=== PATIENT | female | born 1940 | race Two or more races ===

== ENCOUNTER 2018-06-07 13:19 | Inpatient (IN) | payer MEDICARE, OTHER ==
[~2018-06-07] VITALS: Ht 152.4 cm; Wt 44.5 kg
--- NOTE | 2018-06-07 13:29 | NUR ---
MINDY FROM [facility] DT CONGESTION X 3 DAYS. PATIENT IS AWAKE AND ALERT. APPEARS IN NO DISTRESS. RESPIRATION EVEN AND UNLABORED. SKIN IS WARM TO TOUCH AND NON DIAPHORETIC. AFEBRILE. VSS
[2018-06-07] MEDS ORDERED: MORPHINE SULFATE INJ 2 MG/ML DISP.SYRIN IV ONE (15:00)
[2018-06-07] MEDS ORDERED: IV NS 0.9% 1,000 ML BAG IV ONE (15:00)
[2018-06-07] MEDS ORDERED: MORPHINE SULFATE INJ 2 MG/ML DISP.SYRIN ONE (15:05)
[2018-06-07 15:12] LABS: BASOPHILS % (AUTO) 0.2 % (0.0-2.0); HEMATOCRIT 33 % (33-45); LYMPHOCYTES # (AUTO) 0.5 /CMM (0.8-4.8); LYMPHOCYTES % (AUTO) 6.8 % (20.0-44.0); MEAN CORPUSCULAR HEMOGLOBIN 30 PG (26.0-33.0); MEAN CORPUSCULAR HGB CONC 34 g/dl (31.0-36.0); MEAN CORPUSCULAR VOLUME 90 fL (82-100); MONOCYTES # (AUTO) 0.7 /CMM (0.1-1.30); NEUTROPHILS # (AUTO) 6.6 /CMM (1.8-8.9); PLATELET COUNT (AUTO) 385 /CMM (150-450); RDW COEFFICIENT OF VARIATION 14.4 (11.5-15.0); RED BLOOD CELL COUNT(AUTO) 3.63 MIL/uL (4.0-5.2); WHITE BLOOD COUNT (AUTO) 7.8 K/uL (4.3-11.0)
[2018-06-07 15:25] LABS: CARBON DIOXIDE 26 mmol/L (21-32); CHLORIDE 99 mmol/L (98-107); CREATININE 0.5 mg/dL (0.6-1.3); GLUCOSE 143 mg/dL (74-106); POTASSIUM 3.6 mmol/L (3.5-5.1); SODIUM SERUM 135 mmol/L (136-145); UREA NITROGEN, BLOOD 12 mg/dL (7-18)
[2018-06-07 15:26] LABS: INR 1.12 (0.85-1.15)
[2018-06-07 15:30] LABS: ALANINE AMINOTRANSFERASE 6 U/L (12-78); ALBUMIN 2.5 g/dL (3.4-5.0); ALKALINE PHOSPHATASE 94 U/L (46-116); ASPARTATE AMINOTRANSFERASE 6 U/L (15-37); BILIRUBIN,DIRECT 0.2 mg/dL (0.0-0.2); BILIRUBIN,TOTAL 0.5 mg/dL (0.2-1.0); LIPASE 40 U/L (73-393); TOTAL PROTEIN, SERUM 6.1 g/dL (6.4-8.2)
[2018-06-07 16:01] LABS: BAND % (MANUAL) 7 % (0.0-5.0); LYMPHOCYTES % (MANUAL) 7 % (16-48); MONOCYTES % (MANUAL) 11 % (0-11.0); NEUTROPHILS % (MANUAL) 75 (42-76)
[2018-06-07] MEDS ORDERED: ONDANSETRON HCL/PF 4 MG/2 ML VIAL ONE (16:28)
[2018-06-07] MEDS ORDERED: ONDANSETRON HCL/PF - ER 4 MG/2 ML VIAL IV ONE (16:30)
[2018-06-07] MEDS ORDERED: IV D5/0.45 NACL 1,000 ML IV ONE (17:00)
--- NOTE | 2018-06-07 17:41 | NUR ---
CALLED [facility] FOR PANEL CALL AND DR ALMONTE WAS PAGED. CALLED NURSING GAS REGULATOR REPAIRER AND REQUESTED A MED SURG BED FOR THIS PT.
[2018-06-07] MEDS ORDERED: LEVOFLOXACIN 500 MG /D5W 100ML 500 MG in PREMIX 1 EA IV SCH (18:00)
[2018-06-07] MEDS ORDERED: FLAGYL/NS RTU 500 MG/100 ML PIGGYBACK IV ONE (18:00)
[2018-06-07] MEDS ORDERED: LEVOFLOXACIN 500 MG /D5W 100ML 500 MG in PREMIX 1 EA IV ONE (18:03)
[2018-06-07] MEDS ORDERED: METRONIDAZOLE 500MG/ NS 100ML 100 ML IV ONE (18:07)
[2018-06-07] MEDS ORDERED: LEVOFLOXACIN 500 MG /D5W 100ML 100 ML IV ONE (18:07)
[2018-06-07] MEDS ORDERED: MAGNESIUM HYDROXIDE 30 ML UDC PO PRN (18:30)
--- NOTE | 2018-06-07 18:30 | NUR ---
ASSIGNED TO MED SURG RM#: [id number], DX: FAILURE TO THRIVE, ACCEPTING MD: DR. ALMONTE
[2018-06-07] MEDS ORDERED: HYDR-552 PO (18:38)
[2018-06-07] MEDS ORDERED: CHOL100062 PO (18:38)
[2018-06-07] MEDS ORDERED: CHOL500052 PO (18:38)
[2018-06-07] MEDS ORDERED: CYAN10009 PO (18:38)
[2018-06-07] MEDS ORDERED: PRED5TAB PO (18:38)
[2018-06-07] MEDS ORDERED: RISP0.2515 PO (18:38)
[2018-06-07] MEDS ORDERED: PANT40TA2 PO (18:38)
[2018-06-07] MEDS ORDERED: ESCI10TA PO (18:38)
[2018-06-07] MEDS ORDERED: ASPI-1152 PO (18:38)
[2018-06-07] MEDS ORDERED: CALC-494 PO (18:38)
[2018-06-07] MEDS ORDERED: DOCU-141 PO (18:38)
[2018-06-07] MEDS ORDERED: ACET-868 PO (18:38)
--- NOTE | 2018-06-07 19:04 | NUR ---
REPORT GIVEN TO MARK GUNN.
--- NOTE | 2018-06-07 19:31 | NUR ---
PT TRANSPORTED TO [facility] VIA STRETCHER WITH EMT. SRINIVASS.
--- NOTE | 2018-06-07 19:40 | NUR ---
MS/RN OPENING NOTES PT RECEIVED TO UNIT FROM ER VIA LEVON. ON ROOM AIR, BREATHING EVEN AND UNLABORED. A/OX2-3. NO SOB OR PAIN AT THIS TIME. DENIES N/V. IV TO RIGHT WRIST PATENT AND INTACT. PT'S FRIEND MEHRDAD QUARLES [phone] AT BEDSIDE. ORIENTED PT TO ROOM AND CALL LIGHT. SIDE RAILS UPX3. BED ALARM ON FOR SAFETY. WILL CONTINUE TO MONITOR
[2018-06-07 20:00] VITALS: BP 107/59
[2018-06-07] MEDS: IV NS 0.9% 1,000 ML IV PRN (20:27)
[2018-06-07 20:30] VITALS: BP 107/57
[2018-06-08] MEDS: METRONIDAZOLE 500MG/ NS 100ML 500 MG in PREMIX 1 EA IV SCH ×3 (06:19→21:54)
[2018-06-08] MEDS: IV NS 0.9% 1,000 ML IV PRN ×2 (06:22→18:16)
[2018-06-08 07:04] LABS: EOSINOPHILS % (AUTO) 0.1 % (0.0-6.0); HEMATOCRIT 28 % (33-45); LYMPHOCYTES # (AUTO) 0.6 /CMM (0.8-4.8); LYMPHOCYTES % (AUTO) 9.6 % (20.0-44.0); MEAN CORPUSCULAR HEMOGLOBIN 30 PG (26.0-33.0); MEAN CORPUSCULAR HGB CONC 32 g/dl (31.0-36.0); MEAN CORPUSCULAR VOLUME 93 fL (82-100); MONOCYTES # (AUTO) 0.7 /CMM (0.1-1.30); MONOCYTES % (AUTO) 11.4 % (2.0-12.0); NEUTROPHILS # (AUTO) 4.5 /CMM (1.8-8.9); NEUTROPHILS % (AUTO) 78.9 % (43.0-81.0); PLATELET COUNT (AUTO) 337 /CMM (150-450); RDW COEFFICIENT OF VARIATION 15.1 (11.5-15.0); RED BLOOD CELL COUNT(AUTO) 3.01 MIL/uL (4.0-5.2); WHITE BLOOD COUNT (AUTO) 5.7 K/uL (4.3-11.0)
[2018-06-08 07:16] LABS: CALCIUM, SERUM 7.5 mg/dL (8.5-10.1); CARBON DIOXIDE 26 mmol/L (21-32); CHLORIDE 100 mmol/L (98-107); CREATININE 0.4 mg/dL (0.6-1.3); GLUCOSE 101 mg/dL (74-106); PHOSPHORUS 1.8 mg/dL (2.5-4.9); SODIUM SERUM 133 mmol/L (136-145); UREA NITROGEN, BLOOD 5 mg/dL (7-18)
[2018-06-08 07:19] LABS: CHOLESTEROL 117 mg/dL (<200); HDL CHOLESTEROL 46 mg/dL (40-60); LDL 59 mg/dL (0-99); PREALBUMIN 4.8 MG/DL (18.0-35.7); TRIGLYCERIDES 70 mg/dL (30-150)
--- NOTE | 2018-06-08 07:20 | NUR ---
MSRN OPENING NOTES. PT NPO. PT RECEIVED A&0X2, ASLEEP AND EASILY AWOKEN, PT REQUESTING MORE SLEEP. PT TOLERATING ROOM AIR WITHOUT DISTRESS. PT DENIES PAIN AND NAUSEA AT THIS TIME. PT WITH IVC AT R WRIST INTACT AND OPERATIONAL. ENDORSED STOOL CX OUTSTANDING, PT WITH DIAPER, TURNER MACHINE OPERATOR AWARE, HAT PLACED IN TOILET. PT WITH CRITICAL LAB RESULTS. PAGED AWAITING RESPONSE AND PHARMACY CONTACTED FOR SUPPLEMENTS. PT BED IN LOWEST LOCKED POSITION WITH HANDRAILSX2 AND CALL MCCLELLAN WITHIN REACH. PT WITHOUT CONCERN OR COMPLAINT AT THIS TIME.
--- NOTE | 2018-06-08 07:25 | NUR ---
MS/RN CLOSING NOTES PT RESTING COMFORTABLY IN BED, EYES CLOSED. AROUSABLE TO NAME. REMAINS ON ROOM AIR, BREATHING EVEN AND UNLABORED. DENIES SOB, PAIN, N/V. PT WITH NO BM LAST NIGHT. IV TO RIGHT WRIST PATENT AND INTACT RUNNING IVF ORDERED. BED REMAINS IN LOW/LOCKED POSITION WITH CALL LIGHT IN REACH. SIDE RAILS UPX3. BED ALARM ON FOR SAFETY. TURNED/REPOSITIONED Q2H, HEELS OFFLOADED. MEPILEX APPLIED TO SACRUM FOR PROTECTION. NO SIGNIFICANT CHANGES OVERNIGHT. SLEEP WELL DURING SHIFT. ALL NEEDS MET. PT REMAINED NPO DURING SHIFT. ENDORSED TO DAY SHIFT RN ALETHEA.
[2018-06-08 07:53] LABS: POTASSIUM 2.8 mmol/L (3.5-5.1)
[2018-06-08 07:54] LABS: MAGNESIUM 1.2 mg/dL (1.8-2.4)
[2018-06-08 08:00] VITALS: BP 116/64
[2018-06-08] MEDS: POTASSIUM CL. PREMIX PERIPHER. 50 ML IV SCH ×6 (08:28→15:26)
[2018-06-08] MEDS: Magnesium 1GM/D5W 100ML PREMIX 100 ML IV SCH ×4 (09:07→13:19)
[2018-06-08] MEDS ORDERED: POTASSIUM PHOSPHATE MM 15 MMOL in IV D5W 250 ML IV SCH (10:00)
[2018-06-08] MEDS: ONDANSETRON HCL/PF 4 MG/2 ML VIAL IVP PRN (10:15)
[2018-06-08] MEDS: POTASSIUM PHOSPHATE MM 7.5 MMOL in IV D5W 100 ML IV SCH ×2 (15:20→18:55)
[2018-06-08 16:00] VITALS: BP 117/71
[2018-06-08] MEDS: HYDROCODONE/APAP 5/325MG 1 EACH TABLET PO PRN (16:12)
[2018-06-08] MEDS: LEVOFLOXACIN 500 MG /D5W 100ML 500 MG in PREMIX 1 EA IV SCH (18:11)
--- NOTE | 2018-06-08 19:33 | NUR ---
MARCELLO CLSOING NOTES. PT NPO. PT REMAINS A&0X2, FRIEND AT BEDSIDE. PT TOLERATING ROOM AIR WITHOUT DISTRESS. PT DENIES PAIN AND NAUSEA AT THIS TIME. PT WITH IVCX2 INTACT AND OPERATIONAL. PT BED IN LOWEST LOCKED POSITION WITH HANDRAILSX2 AND CALL MCCLELLAN WITHIN REACH. PT WITHOUT CONCERN OR COMPLAINT AT THIS TIME.
--- NOTE | 2018-06-08 19:52 | NUR ---
MS RN OPENING NOTES PT IN BED WITH FAMILY MEMBER AT BEDSIDE. PT A&0X2 ,PT TOLERATING ROOM AIR WITHOUT DISTRESS. PT DENIES PAIN AND NAUSEA AT THIS TIME. PT WITH IV R WRIST #20 ONGOING NS 100ML/HR . PT BED IN LOWEST LOCKED POSITION WITH HANDRAILSX2 AND CALL MCCLELLAN WITHIN REACH. WILL CONTINUE TO MONITOR
[2018-06-08 20:00] VITALS: BP 101/55
[2018-06-09] MEDS: METRONIDAZOLE 500MG/ NS 100ML 500 MG in PREMIX 1 EA IV SCH ×3 (04:56→21:24)
--- NOTE | 2018-06-09 06:48 | NUR ---
MS RN CLOSING NOTES PT IN BED. PT A&0X2 ,PT ON ROOM AIR W/SATURATION 96%. PT DENIES PAIN AND NAUSEA AT THIS TIME. PT WITH IV R WRIST #20 ONGOING NS 100ML/HR. PT NPO STATUS. PT BED IN LOWEST LOCKED POSITION WITH HANDRAILS X2 AND CALL MCCLELLAN WITHIN REACH.NEEDS ATTENDED. WILL ENDORSE TO DAY SHIFT FOR ALETHEA.
[2018-06-09 07:58] LABS: EOSINOPHILS % (AUTO) 0.6 % (0.0-6.0); HEMATOCRIT 29 % (33-45); HEMOGLOBIN 9.2 g/dL (11.5-14.8); LYMPHOCYTES # (AUTO) 0.6 /CMM (0.8-4.8); LYMPHOCYTES % (AUTO) 12.7 % (20.0-44.0); MEAN CORPUSCULAR HEMOGLOBIN 30 PG (26.0-33.0); MEAN CORPUSCULAR HGB CONC 32 g/dl (31.0-36.0); MEAN CORPUSCULAR VOLUME 92 fL (82-100); MONOCYTES # (AUTO) 0.6 /CMM (0.1-1.30); MONOCYTES % (AUTO) 11.4 % (2.0-12.0); NEUTROPHILS # (AUTO) 3.7 /CMM (1.8-8.9); NEUTROPHILS % (AUTO) 75.3 % (43.0-81.0); PLATELET COUNT (AUTO) 286 /CMM (150-450); RDW COEFFICIENT OF VARIATION 15.1 (11.5-15.0); RED BLOOD CELL COUNT(AUTO) 3.09 MIL/uL (4.0-5.2); WHITE BLOOD COUNT (AUTO) 4.9 K/uL (4.3-11.0)
[2018-06-09 08:00] VITALS: BP 104/68
--- NOTE | 2018-06-09 08:00 | NUR ---
MS RN NOTES PATIENT IN BED, AWAKE. BREATHING ON ROOM AIR WITH NO SOB. CURRENTLY NPO EXCEPT MEDS ORDERED, IVF NS INFUSING AT 100ML/HR. NO C/O N/V, DENIES ABDOMINAL PAIN. CALL LIGHT WITHIN REACH. WILL CONT TO MONITOR.
[2018-06-09 08:08] LABS: CALCIUM, SERUM 7.4 mg/dL (8.5-10.1); CARBON DIOXIDE 28 mmol/L (21-32); CHLORIDE 99 mmol/L (98-107); CREATININE 0.3 mg/dL (0.6-1.3); GLUCOSE 100 mg/dL (74-106); MAGNESIUM 1.8 mg/dL (1.8-2.4); PHOSPHORUS 2.2 mg/dL (2.5-4.9); POTASSIUM 3.2 mmol/L (3.5-5.1); SODIUM SERUM 131 mmol/L (136-145); UREA NITROGEN, BLOOD 2 mg/dL (7-18)
[2018-06-09] MEDS: POTASSIUM CL. PREMIX PERIPHER. 100 ML IV SCH ×4 (10:45→17:18)
[2018-06-09] MEDS: IV NS 0.9% 1,000 ML IV PRN (11:01)
[2018-06-09] MEDS: HYDROCODONE/APAP 5/325MG 1 EACH TABLET PO PRN ×2 (11:33→17:32)
[2018-06-09] MEDS: PANTOPRAZOLE 40 MG VIAL IV SCH (12:07)
--- NOTE | 2018-06-09 13:00 | NUR ---
TOLERATING CLEAR LIQUIDS DIET, DENIES N/V.
[2018-06-09] MEDS ORDERED: Sodium Phosphate 15 MMOL in IV D5W 250 ML IV ONE (14:00)
[2018-06-09] MEDS ORDERED: PEG 3350/NA SULF,BICARB,CL/KCL 4,000 ML BOTTLE PO ONE (15:30)
[2018-06-09 16:00] VITALS: BP 110/67
[2018-06-09] MEDS: LEVOFLOXACIN 500 MG /D5W 100ML 500 MG in PREMIX 1 EA IV SCH (18:50)
--- NOTE | 2018-06-09 19:15 | NUR ---
MS RN OPENING NOTES PATIENT IN BED, A/O X3 . PT NPO EXCEPT MEDS ORDERED, BOWEL PREP STARTED. COLONOSCOPY IN THE MORNING, CONSENT FORM IN THE CHART. PT'S FRIEND AT THE BEDSIDE , BED IN LOW AND LOCKED POSITION , CALL LIGHT WITHIN REACH.
--- NOTE | 2018-06-09 19:31 | NUR ---
MS RN CLOSING NOTES PATIENT IN BED, A/O X3 FORGETFUL. CURRENTLY NPO EXCEPT MEDS ORDERED, BOWEL PREP STARTED. COLONOSCOPY IN AM, PATIENT CONSENTED PROCEDURE, CONSENT FORM PLACE IN THE CHART. POTASSIUM AND PHOSPHORUS SUPPLEMENTED TODAY ORDERED. ABDOMINAL PAIN MANAGED BY PO PRN NORCO WITH RELIEF. CALL LIGHT WITHIN REACH. WILL ENDORSED TO ONCOMING RN.
[2018-06-09 20:00] VITALS: BP_SYST 113; BP_SYST 120; BP_DIAS 55; BP_DIAS 69
--- NOTE | 2018-06-09 21:18 | NUR ---
PT HAD FINISHED 6 CUPS OF GOLYTELY,CAN NOT TOLERATE IT AND STARTED VOMITING. WILL MONITOR FOR 30 MIN AND CALL FOR CONSULT.
--- NOTE | 2018-06-09 23:00 | NUR ---
SPOKE TO MD ROGER ABOUT THE PT. HE SAID CONTINUE WITH GOLYTELY BUT GIVE PT ZOFRAN BEFORE RESTART. WILL FOLLOW RECOMMENDATION
[2018-06-09] MEDS: ONDANSETRON HCL/PF 4 MG/2 ML VIAL IVP PRN (23:33)
--- NOTE | 2018-06-09 23:36 | NUR ---
PRN ZOFRAN IS GIVEN TO PREVENT N/V CAUSED BY GOLYTELY INTAKE. WILL CONTINUE TO MONITOR
--- NOTE | 2018-06-10 | NUR ---
PT'S REFUSED TO DRINK GOLYTELY, EXPLAINED IMPORTANCE BOWEL PREPARATION BEFORE PROCEDURE. PT AGREED TO TAKE BY LITTLE SIPS, OTHERWISE PT GETS NAUSEA.
[2018-06-10] MEDS: HYDROCODONE/APAP 5/325MG 1 EACH TABLET PO PRN ×4 (00:14→17:34)
[2018-06-10 01:26] VITALS: BP 113/55
--- NOTE | 2018-06-10 02:43 | NUR ---
PT GOT 13 CUPS OF GOLYTELY
--- NOTE | 2018-06-10 02:50 | NUR ---
PT REFUSED TO TAKE GOLYTELY, CANNOT TOLERATE IT
--- NOTE | 2018-06-10 04:00 | NUR ---
PT HAD ONE YELLOWISH WATERY STOOL BM TAKING GOLYTELY. Addendum: 06/10/18 at 0535 by JEN CUNNINGHAM RN SINCE SHE STOPPED TO TAKE GOLYTELY
[2018-06-10] MEDS: METRONIDAZOLE 500MG/ NS 100ML 500 MG in PREMIX 1 EA IV SCH ×3 (05:19→20:33)
--- NOTE | 2018-06-10 07:41 | NUR ---
MS RN CLOSING NOTES PATIENT IN BED, A/O X3 . PT NPO EXCEPT MEDS ORDERED, COLONOSCOPY AT 1300 AM, CONSENT FORM IN THE CHART. PT HAD 2 BM, BED IN LOW AND LOCKED POSITION , CALL LIGHT WITHIN REACH. WILL ENDORSE TO DAY SHIFT
--- NOTE | 2018-06-10 07:45 | NUR ---
RN NOTES PATIENT A/OX3, KEPT NPO EXCEPT MEDS AT THIS TIME. PATIENT IN NO DISTRESS, CONSENTS SIGNED FOR COLONOSCOPY. PER ANCIENT ART CURATOR REPORT PATIENT HAS HAD A TOTAL OF 2 BM'S WATERY BUT STILL NOT CLEAR. ENCOURAGED PATIENT TO DRINK MORE GOLYTELY. NEEDS ATTENDED AND MET, CALL LIGHT WITHIN REACH, WILL CONTINUE TO MONITOR.
[2018-06-10 08:00] VITALS: BP 110/65
[2018-06-10 08:07] LABS: CALCIUM, SERUM 7.3 mg/dL (8.5-10.1); CARBON DIOXIDE 27 mmol/L (21-32); CHLORIDE 95 mmol/L (98-107); CREATININE 0.3 mg/dL (0.6-1.3); GLUCOSE 85 mg/dL (74-106); PHOSPHORUS 1.9 mg/dL (2.5-4.9); POTASSIUM 3.2 mmol/L (3.5-5.1); SODIUM SERUM 128 mmol/L (136-145); UREA NITROGEN, BLOOD 2 mg/dL (7-18)
[2018-06-10] MEDS: POTASSIUM CL. PREMIX PERIPHER. 50 ML IV SCH ×2 (10:17→11:48)
[2018-06-10] MEDS: ONDANSETRON HCL/PF 4 MG/2 ML VIAL IVP PRN (10:56)
[2018-06-10] MEDS: PANTOPRAZOLE 40 MG VIAL IV SCH (10:56)
[2018-06-10] MEDS ORDERED: POTASSIUM CL. PREMIX PERIPHER. 50 ML IV SCH ×2 (13:30→16:00)
[2018-06-10] MEDS ORDERED: K PHOS NEUTRAL 250 MG TABLET PO ONE (13:30)
--- NOTE | 2018-06-10 13:50 | NUR ---
RN NOTES PATIENT TRANSFERRED TO OR FOR COLONOSCOPY.
[2018-06-10 16:00] VITALS: BP 140/76
[2018-06-10] MEDS: LEVOFLOXACIN 500 MG /D5W 100ML 500 MG in PREMIX 1 EA IV SCH (17:29)
[2018-06-10] MEDS: IV NS 0.9% 1,000 ML IV PRN (17:59)
--- NOTE | 2018-06-10 19:15 | NUR ---
RN NOTES PATIENT A/OX3, COMPLETED COLONOSCOPY, XR BARIUM ENEMA AND ABDOMEN KUB TODAY, TOLERATED PROCEDURE WELL, PATIENT STILL HAVING LOOSE BROWN STOOLS, MEPILEX IN PLACED ON SACRAL AREA, ENCOURAGED PATIENT TO TURN AND REPOSITION EVERY 2 HOURS, PATIENT IS ON CLEAR LIQUID DIET NOW, IVF INFUSING, POTASSIUM REPLACED, NEEDS ATTENDED AND MET, SKIN CARE RENDERED, CALL LIGHT WITHIN REACH, WILL ENDORSE TO PUBLIC SERVICE REPRESENTATIVE FOR ALETHEA.
--- NOTE | 2018-06-10 19:35 | NUR ---
MS RN NOTES RECEIVED ON SLEEPING,AROUSABLE TO VERBAL STIMULI,BREATHING NORMAL.IVF NS AT 100ML/HR RATE IN PROGRESS VIA IV PUMP ON LEFT HAND.WILL MONITOR FOR BOWEL MOVEMENT.CALL LIGHT IN REACH,NEEDS ANTICIPATED.
[2018-06-10 20:00] VITALS: BP 95/55
[2018-06-11] MEDS: HYDROCODONE/APAP 5/325MG 1 EACH TABLET PO PRN ×2 (00:44→23:03)
[2018-06-11] MEDS: METRONIDAZOLE 500MG/ NS 100ML 500 MG in PREMIX 1 EA IV SCH ×2 (05:05→13:07)
--- NOTE | 2018-06-11 06:06 | NUR ---
MS RN NOTES DUE IV ABX HUNG AND INFUSED,TOLERATED WELL.NO ADVERSE REACTION NOTED.SALINE LOCK INTACT PATENT,IVF INFUSING.NO LOOSE BM NOTED.CALL LIGHT IN REACH,NEEDS ATTENDED.WILL ENDORSE TO DAY NURSE FOR ALETHEA.
[2018-06-11 07:00] LABS: CALCIUM, SERUM 7.6 mg/dL (8.5-10.1); CARBON DIOXIDE 23 mmol/L (21-32); CHLORIDE 99 mmol/L (98-107); CREATININE 0.3 mg/dL (0.6-1.3); GLUCOSE 70 mg/dL (74-106); MAGNESIUM 1.4 mg/dL (1.8-2.4); PHOSPHORUS 2.8 mg/dL (2.5-4.9); SODIUM SERUM 133 mmol/L (136-145); UREA NITROGEN, BLOOD 1 mg/dL (7-18)
--- NOTE | 2018-06-11 07:05 | NUR ---
MS RN NOTES PATIENT IN BED ALERT ORIENTED X3. NO ACUTE DISTRESS NOTED. BREATHING UNLABORED. NO SOB NOTED. IV ACCESS PATENT AND INTACT, NO REDNESS OR SWELLING NOTED. SAFETY MEASURES IN PLACE. HOB ELEVATED. CALL LIGHT WITHIN REACH. WILL CONTINUE TO MONITOR ACCORDINGLY.
[2018-06-11 07:56] LABS: EOSINOPHILS % (AUTO) 0.9 % (0.0-6.0); HEMATOCRIT 30 % (33-45); HEMOGLOBIN 10.1 g/dL (11.5-14.8); LYMPHOCYTES # (AUTO) 0.6 /CMM (0.8-4.8); LYMPHOCYTES % (AUTO) 11.5 % (20.0-44.0); MEAN CORPUSCULAR HEMOGLOBIN 31 PG (26.0-33.0); MEAN CORPUSCULAR HGB CONC 34 g/dl (31.0-36.0); MEAN CORPUSCULAR VOLUME 90 fL (82-100); MONOCYTES # (AUTO) 0.4 /CMM (0.1-1.30); MONOCYTES % (AUTO) 7.6 % (2.0-12.0); NEUTROPHILS # (AUTO) 4.3 /CMM (1.8-8.9); PLATELET COUNT (AUTO) 258 /CMM (150-450); RDW COEFFICIENT OF VARIATION 14.4 (11.5-15.0); RED BLOOD CELL COUNT(AUTO) 3.31 MIL/uL (4.0-5.2); WHITE BLOOD COUNT (AUTO) 5.3 K/uL (4.3-11.0)
[2018-06-11] MEDS: IV NS 0.9% 1,000 ML IV PRN (09:08)
[2018-06-11] MEDS ORDERED: MAGNESIUM OXIDE 400 MG TABLET PO ONE (10:00)
--- NOTE | 2018-06-11 10:00 | NUR ---
MS RN NOTES SEEN AND EVALUATED BY SAIMA DAVILA WITH NEW ORDERS MADE, NOTED AND CARRIED OUT.
[2018-06-11] MEDS: ONDANSETRON HCL/PF 4 MG/2 ML VIAL IVP PRN (10:37)
[2018-06-11] MEDS: PANTOPRAZOLE 40 MG VIAL IV SCH (11:40)
[2018-06-11] MEDS: Potassium Chloride 10 MEQ, LIDOCAINE HCL/PF 1% 1 ML in IV NS 0.9% 50 ML IV SCH ×2 (11:45→14:09)
[2018-06-11 16:00] VITALS: BP 107/60
[2018-06-11] MEDS: LEVOFLOXACIN 500 MG /D5W 100ML 500 MG in PREMIX 1 EA IV SCH (17:42)
--- NOTE | 2018-06-11 18:44 | NUR ---
MS RN NOTES PATIENT IN BED ALERT ORIENTED X4. NO ACUTE DISTRESS NOTED. BREATHING UNLABORED. NO SOB NOTED. IV ACCESS PATENT AND INTACT, NO REDNESS OR SWELLING NOTED. DUE MEDICATIONS GIVEN, NO ASE NOTED. NEEDS ATTENDED AND ANTICIPATED. HOB ELEVATED. SAFETY MEASURES IN PLACE. CALL LIGHT WITHIN REACH. WILL CONTINUE TO MONITOR ACCORDINGLY. WILL ENDORSE TO NIGHT NURSE FOR CONTINUITY OF CARE.
--- NOTE | 2018-06-11 19:25 | NUR ---
MS RN NOTES ON BED A/O X2-3,ON SEMI FOWLERS POSITION,VISITOR AT BEDSIDE.IVF NS AT 100ML/HR RATE IN PROGRESS ON RIGHT WRIST.STILL ON CLEAR LIQUID.CALL LIGHT IN REACH,NEEDS ANTICIPATED.
[2018-06-11] MEDS: ACETAMINOPHEN 325 MG TABLET PO PRN (19:38)
--- NOTE | 2018-06-11 19:38 | NUR ---
MS RN NOTES C/O MILD ABDOMINAL PAIN 3/10 ON PAIN SCALE,TYLENOL 650MG PO GIVEN WITH APPLE SAUCE,TAKEN WELL.WILL MONITOR FOR NAUSEA/VOMITING.
[2018-06-11 20:00] VITALS: BP 145/53
--- NOTE | 2018-06-11 21:30 | NUR ---
MS RN NOTES SEE BY DR MCFARLAND FOR SURGICAL CONSULT.WILL TALK TO DR WU FOR PLAN RE PREP FOR REPEAT COLONOSCOPY WITH PEDIATRIC SCOPE AFTER PERIODS OF ANTIBIOTICS AND DECREASING INFLAMMATION.
--- NOTE | 2018-06-11 23:03 | NUR ---
MS RN NOTES C/O ABDOMINAL PAIN 6/10 ON PAIN SCALE,NORCO 5/325MG,1 TAB PO GIVEN WITH APPLE SAUCE PER PATIENT REQUEST
[2018-06-12] MEDS: HYDROCODONE/APAP 5/325MG 1 EACH TABLET PO PRN ×4 (05:36→23:32)
--- NOTE | 2018-06-12 05:36 | NUR ---
MS RN NOTES PAIN MANAGEMENT C/O ABDOMINAL PAIN 6/10 ON PAIN SCALE,NORCO 5/325MG PO GIVEN WITH APPLE SAUCE,TAKEN WELL.
[2018-06-12] MEDS: IV NS 0.9% 1,000 ML IV PRN ×2 (05:46→23:15)
--- NOTE | 2018-06-12 06:49 | NUR ---
MS RN NOTES KEPT ON CLEAR LIQUID ORDERED,PLAN REPEAT COLONOSCOPY,DR MCFARLAND TO SPEAK WITH DR WU PLANNED.IN NO ACUTE DISTRESS.WILL ENDORSE TO DAY NURSE FOR ALETHEA.
--- NOTE | 2018-06-12 07:25 | NUR ---
RN NOTES PATIENT A/OX3, BREATHING EVEN AND UNLABORED, NO SOB NOTED, IVF INFUSING AND TOLERATING WELL, DENIES PAIN OR DISCOMFORT AT THIS TIME, KEPT COMFORTABLE, NEEDS ATTENDED, CALL LIGHT WITHIN REACH, WILL CONTINUE TO MONITOR.
[2018-06-12 08:00] VITALS: BP 131/70
[2018-06-12 08:31] LABS: EOSINOPHILS % (AUTO) 1.1 % (0.0-6.0); HEMATOCRIT 27 % (33-45); HEMOGLOBIN 9.2 g/dL (11.5-14.8); LYMPHOCYTES # (AUTO) 0.6 /CMM (0.8-4.8); LYMPHOCYTES % (AUTO) 11.2 % (20.0-44.0); MEAN CORPUSCULAR HEMOGLOBIN 31 PG (26.0-33.0); MEAN CORPUSCULAR HGB CONC 34 g/dl (31.0-36.0); MEAN CORPUSCULAR VOLUME 91 fL (82-100); MONOCYTES # (AUTO) 0.4 /CMM (0.1-1.30); MONOCYTES % (AUTO) 6.5 % (2.0-12.0); NEUTROPHILS # (AUTO) 4.5 /CMM (1.8-8.9); NEUTROPHILS % (AUTO) 81.2 % (43.0-81.0); PLATELET COUNT (AUTO) 286 /CMM (150-450); RDW COEFFICIENT OF VARIATION 14.1 (11.5-15.0); RED BLOOD CELL COUNT(AUTO) 2.99 MIL/uL (4.0-5.2); WHITE BLOOD COUNT (AUTO) 5.6 K/uL (4.3-11.0)
[2018-06-12 08:43] LABS: CALCIUM, SERUM 7.6 mg/dL (8.5-10.1); CARBON DIOXIDE 20 mmol/L (21-32); CHLORIDE 100 mmol/L (98-107); CREATININE 0.4 mg/dL (0.6-1.3); GLUCOSE 68 mg/dL (74-106); MAGNESIUM 1.5 mg/dL (1.8-2.4); PHOSPHORUS 1.8 mg/dL (2.5-4.9); POTASSIUM 2.9 mmol/L (3.5-5.1); SODIUM SERUM 135 mmol/L (136-145); UREA NITROGEN, BLOOD 0 mg/dL (7-18)
--- NOTE | 2018-06-12 11:00 | NUR ---
RN NOTES SKIN CARE AND VINICIO-CARE RENDERED, SACRAL AND BUTTOCKS INTACT, ONLY REDNESS, Z-GUARD AND MEPILEX APPLIED, REPOSITIONED PATIENT AND OFFLOADED BILATERAL HEELS. INFORMED HERNANDO LANDAVERDE FOR WOUND CARE CONSULT.
[2018-06-12] MEDS ORDERED: POTASSIUM CHLORIDE 20 MEQ POWDER PACKET PO SCH (12:00)
[2018-06-12] MEDS: Magnesium 1GM/D5W 100ML PREMIX 100 ML IV SCH ×2 (12:21→13:26)
[2018-06-12] MEDS: PANTOPRAZOLE 40 MG VIAL IV SCH (12:21)
[2018-06-12] MEDS: POTASSIUM CL. PREMIX PERIPHER. 50 ML IV SCH ×6 (12:59→18:49)
[2018-06-12] MEDS ORDERED: Sodium Phosphate 15 MMOL in IV D5W 250 ML IV ONE (14:00)
[2018-06-12] MEDS ORDERED: PEG 3350/NA SULF,BICARB,CL/KCL 4,000 ML BOTTLE PO ONE (14:30)
[2018-06-12] MEDS ORDERED: MAGNESIUM CITRATE 296 ML BOTTLE PO ONE (14:30)
--- NOTE | 2018-06-12 15:10 | NUR ---
RN NOTES PATIENT A/OX3, ATTEMPTED TO INSERT NASOGASTRIC TUBE TWICE BUT UNSUCCESSFUL, PATIENT THEN REFUSED TO HAVE NGT INSERTION ANYMORE. EXPLAINED TO PATIENT IMPORTANCE OF NGT, AND BOWEL PREP FOR COLONOSCOPY. PATIENT STILL REFUSED. DAUGHTER MADE AWARE. BROOKLYN LANDAVERDE MADE AWARE. PATIENT STARTED ON GOLYTELY BY MOUTH, ENCOURAGED PATIENT TO KEEP DRINKING AND TO BE ABLE TO FINISH THE GOLYTELY BY TONIGHT. NEEDS ATTENDED AND MET, TURNED AND REPOSITIONED, CALL LIGHT WITHIN REACH, WILL CONTINUE TO MONITOR.
[2018-06-12] MEDS: ONDANSETRON HCL/PF 4 MG/2 ML VIAL IVP PRN (15:44)
[2018-06-12 16:00] VITALS: BP 128/68
[2018-06-12] MEDS: LEVOFLOXACIN (500MG) 500 MG TABLET PO SCH (17:51)
--- NOTE | 2018-06-12 18:38 | NUR ---
RN NOTES PATIENT TO CONTINUE BOWEL PREP, PATIENT ABLE TO DRINK GOLYTELY BUT SLOWLY, NEEDS TO BE ENCOURAGED, PATIENT STILL HAS NOT HAD ANY BM, STILL REFUSING NGT AT THIS TIME, POTASSIUM BEING REPLACED, PATIENT TO BE NPO AFTER MIDNIGHT, IVF INFUSING AND TOLERATING WELL, TURNED AND REPOSITIONED EVERY 2 HOURS, MEPILEX APPLIED, Z-GUARD. BLE OFFLOADED. NEEDS ATTENDED MET, CALL LIGHT WITHIN REACH, WILL ENDORSE TO TRAFFIC AGENT FOR ALETHEA.
--- NOTE | 2018-06-12 19:28 | NUR ---
RN NOTES RECEIVED PATIENT IN BED, RESTING COMFORTABLY, AROUSES EASILY. A/ O X 3, VERBALLY RESPONSIVE. NO SOB NOR DISTRESS NOTED. IV SITE ON RIGHT WRIST LEAKING, INSERTED IV ON RIGHT HAND G # 22, WITH GOOD VENOUS RETURN , PT [place] WELL. NO C/O OF PAIN OR DISCOMFORT. GOLYTELY ENCOURAGED TO THE PT , BUT PT VERBALIZED THAT SHE CANNOT TAKE IT ANYMORE, WILL HAVE THE PT REST FOR THE MEANTIME, AND WILL TRY AGAIN AND CONT TO ENCOURAGE PT. ALL NEEDS ATTENDED AND MET. SAFETY PRECAUTIONS OBSERVED. CALL LIGHT WITHIN REACH. WILL CONT TO MONITOR.
--- NOTE | 2018-06-12 19:35 | NUR ---
RECEIVED A CALL FROM PT'S DAUGHTER JORDAN, DTR AWARE THAT PT'S REFUSED THE NGT INSERTION , HOW EVER PER JORDAN SHE WILL COME HERE AND VISIT HER MOM AND WILL HELP AND ENCOURAGE HER MOM TO DRINK THE GOLYTELY.
[2018-06-12 20:00] VITALS: BP 98/63
[2018-06-13] MEDS: NA PHOS,M-B/NA PHOS,DI-BA 1 EA ENEMA RC PRN ×2 (04:18→07:52)
--- NOTE | 2018-06-13 06:35 | NUR ---
RN NOTES PATIENT IN BED, AWAKE, A/ O X 3, VERBALLY RESPONSIVE. NO SOB NOR DISTRESS NOTED. IV SITE ON RIGHT WRIST LEAKING, INSERTED IV ON RIGHT HAND G # 22, WITH GOOD VENOUS RETURN , PT [place] WELL. NO C/O OF PAIN OR DISCOMFORT. PT ON NPO STARTING MIDNIGHT FOR COLONOSCOPY, STILL NOTED WITH LIGHT BROWN COLORED LIQUID BM , ENEMA OFFERED TO THE PT BUT REFUSED AT THIS TIME. CHARGE NURSE MARINO AWARE. ALL NEEDS ATTENDED AND MET. SAFETY PRECAUTIONS OBSERVED. CALL LIGHT WITHIN REACH. WILL ENDORSE TO NEXT SHIFT FRO ALETHEA. .
[2018-06-13 06:59] LABS: BASOPHILS % (AUTO) 0.1 % (0.0-2.0); EOSINOPHILS % (AUTO) 1.7 % (0.0-6.0); HEMATOCRIT 30 % (33-45); HEMOGLOBIN 10.5 g/dL (11.5-14.8); LYMPHOCYTES # (AUTO) 0.8 /CMM (0.8-4.8); LYMPHOCYTES % (AUTO) 12.1 % (20.0-44.0); MEAN CORPUSCULAR HEMOGLOBIN 32 PG (26.0-33.0); MEAN CORPUSCULAR HGB CONC 35 g/dl (31.0-36.0); MEAN CORPUSCULAR VOLUME 91 fL (82-100); MONOCYTES # (AUTO) 0.4 /CMM (0.1-1.30); MONOCYTES % (AUTO) 6.3 % (2.0-12.0); NEUTROPHILS # (AUTO) 5.6 /CMM (1.8-8.9); NEUTROPHILS % (AUTO) 79.8 % (43.0-81.0); PLATELET COUNT (AUTO) 265 /CMM (150-450); RDW COEFFICIENT OF VARIATION 14.3 (11.5-15.0); RED BLOOD CELL COUNT(AUTO) 3.34 MIL/uL (4.0-5.2); WHITE BLOOD COUNT (AUTO) 6.9 K/uL (4.3-11.0)
[2018-06-13 07:10] LABS: CALCIUM, SERUM 7.3 mg/dL (8.5-10.1); CARBON DIOXIDE 23 mmol/L (21-32); CHLORIDE 97 mmol/L (98-107); CREATININE 0.3 mg/dL (0.6-1.3); GLUCOSE 92 mg/dL (74-106); MAGNESIUM 1.8 mg/dL (1.8-2.4); PHOSPHORUS 1.6 mg/dL (2.5-4.9); POTASSIUM 3.4 mmol/L (3.5-5.1); SODIUM SERUM 131 mmol/L (136-145)
--- NOTE | 2018-06-13 07:10 | NUR ---
RN NOTES PT IS LAYING DOWN IN BED, SLEEPING COMFORTABLY. PT ON RA, RESPIRATIONS ARE EVEN AND UNLABORED. IV ON R HAND INTACT AND PATENT. NO SIGNS OF DISTRESS NOTED. SAFETY MEASURES ARE IN PLACE, CALL LIGHT IS IN REACH. WILL CONTINUE TO MONITOR.
[2018-06-13 07:18] LABS: UREA NITROGEN, BLOOD 0 mg/dL (7-18)
[2018-06-13 08:00] VITALS: BP 117/78
[2018-06-13] MEDS: POTASSIUM CL. PREMIX PERIPHER. 50 ML IV SCH ×2 (09:42→10:56)
[2018-06-13] MEDS ORDERED: HYDROMORPHONE INJ 2 MG/ML DISP.SYRIN IV ONE (11:30)
[2018-06-13] MEDS: PANTOPRAZOLE 40 MG VIAL IV SCH (11:46)
[2018-06-13] MEDS ORDERED: Sodium Phosphate 7.5 MMOL in IV D5W 100 ML IV ONE (12:00)
[2018-06-13] MEDS: METRONIDAZOLE 500MG/ NS 100ML 500 MG in PREMIX 1 EA IV SCH ×2 (14:49→21:47)
[2018-06-13 16:00] VITALS: BP_SYST 111; BP_DIAS 110; BP_DIAS 70
[2018-06-13] MEDS: LEVOFLOXACIN (500MG) 500 MG TABLET PO SCH (17:06)
[2018-06-13] MEDS: HYDROMORPHONE INJ 2 MG/ML DISP.SYRIN IV PRN (17:49)
[2018-06-13] MEDS: IV NS 0.9% 1,000 ML IV PRN (18:25)
--- NOTE | 2018-06-13 18:47 | NUR ---
RN NOTES PT IS LAYING DOWN IN BED, SLEEPING COMFORTABLY. PT ON RA, RESPIRATIONS ARE EVEN AND UNLABORED. IV ON R HAND INTACT AND RUNNING NS @ 100ML/HR. ALL MEDS WERE GIVEN ORDERED AND PT NEEDS MET. SKIN CARE PROVIDED FOR PT, KEPT CLEAN AND DRY. NO SIGNS OF DISTRESS NOTED. SAFETY MEASURES ARE IN PLACE, CALL LIGHT IS IN REACH. WILL ENDORSE TO NATURAL GAS TECHNICIAN RN FOR CONTINUITY OF CARE.
--- NOTE | 2018-06-13 19:20 | NUR ---
MS RN OPENING NOTE Patient was seen sleeping in bed but awoke easily to name. Patient is AAOx3, breathing on RA with no SOB, and no signs of acute distress. NS at 100ml/hr is running through the right hand. Bed is in the low/locked position, two side rails up, and call daniels within reach. Patient has no immediate needs or concerns at this time. Will continue to monitor.
[2018-06-13 20:00] VITALS: BP 95/64
[2018-06-14 00:05] VITALS: BP 103/70
[2018-06-14] MEDS: HYDROMORPHONE INJ 2 MG/ML DISP.SYRIN IV PRN ×3 (00:14→19:04)
--- NOTE | 2018-06-14 00:14 | NUR ---
MS RN NOTE - pain med Patient requested pain medication for 8/10 abdominal pain. Patient is NPO status. 1mg IV Dilaudid administered as ordered. BP checked prior, WNL and within patient's normal range per records. Will continue to monitor.
[2018-06-14] MEDS: IV NS 0.9% 1,000 ML IV PRN (05:37)
[2018-06-14] MEDS: METRONIDAZOLE 500MG/ NS 100ML 500 MG in PREMIX 1 EA IV SCH ×3 (05:38→21:39)
[2018-06-14 06:45] VITALS: BP 113/68
--- NOTE | 2018-06-14 06:59 | NUR ---
MS RN CLOSING NOTE Patient is AAOx3, breathing on RA with no SOB, and no signs of acute distress. Patient slept well overnight with no complications. IV Dilaudid given for abdominal pain as needed per orders. NS at 100ml/hr is running through the right hand IV. Bed is in the low/locked position, two side rails up, and call daniels within reach. All patient needs have been addressed this shift and care has been endorsed to day shift nurse.
[2018-06-14 08:00] VITALS: BP 101/65
--- NOTE | 2018-06-14 08:06 | NUR ---
MS RN OPENING NOTE PATIENT IS AWAKE IN BED RESTING COMFORTABLY AT THIS TIME. NO PAIN NOTED. NO SOB OR DISTRESS NOTED. CALL LIGHT WITHIN REACH AND SAFETY MEASURES IMPLEMENTED. ABLE TO COMMUNICATE NEEDS. NPO AT THIS TIME. IV INTACT AND PATENT NO REDNESS OR SWELLING NOTED WITH IV FLUIDS RUNNING AT THIS TIME.WILL CONTINUE TO MONITOR THROUGHOUT SHIFT
[2018-06-14 08:08] LABS: CALCIUM, SERUM 7.3 mg/dL (8.5-10.1); CARBON DIOXIDE 23 mmol/L (21-32); CHLORIDE 98 mmol/L (98-107); CREATININE 0.3 mg/dL (0.6-1.3); GLUCOSE 83 mg/dL (74-106); MAGNESIUM 1.6 mg/dL (1.8-2.4); PHOSPHORUS 1.9 mg/dL (2.5-4.9); POTASSIUM 3.1 mmol/L (3.5-5.1); SODIUM SERUM 132 mmol/L (136-145); UREA NITROGEN, BLOOD 0 mg/dL (7-18)
[2018-06-14 08:35] LABS: HEMATOCRIT 30 % (33-45); WHITE BLOOD COUNT (AUTO) 4.8 K/uL (4.3-11.0)
[2018-06-14 08:36] LABS: BASOPHILS % (AUTO) 0.4 % (0.0-2.0); EOSINOPHILS % (AUTO) 1.7 % (0.0-6.0); LYMPHOCYTES % (AUTO) 16.3 % (20.0-44.0); MEAN CORPUSCULAR HEMOGLOBIN 30 PG (26.0-33.0); MEAN CORPUSCULAR HGB CONC 33 g/dl (31.0-36.0); MEAN CORPUSCULAR VOLUME 92 fL (82-100); MONOCYTES % (AUTO) 7.2 % (2.0-12.0); NEUTROPHILS % (AUTO) 74.4 % (43.0-81.0); PLATELET COUNT (AUTO) 247 /CMM (150-450); RDW COEFFICIENT OF VARIATION 15.5 (11.5-15.0)
[2018-06-14] MEDS: POTASSIUM CL. PREMIX PERIPHER. 50 ML IV SCH ×4 (09:53→13:30)
[2018-06-14] MEDS: Magnesium 1GM/D5W 100ML PREMIX 100 ML IV SCH ×2 (10:12→11:26)
[2018-06-14] MEDS: PANTOPRAZOLE 40 MG VIAL IV SCH (10:58)
--- NOTE | 2018-06-14 11:35 | NUR ---
MS FLORES NOTE PER MD LIRIANO TO START CLEAR LIQUID DIET FOR LUNCH Addendum: 06/14/18 at 1531 by SHARON LYONS RN CANCEL CLEAR LIQUID DIET. PATIENT STILL NPO
[2018-06-14] MEDS ORDERED: Sodium Phosphate 7.5 MMOL in IV D5W 100 ML IV ONE ×2 (12:00→16:00)
--- NOTE | 2018-06-14 15:31 | NUR ---
MS RN NOTE PER MD LIRIANO TO CHANGE LEVAQUIN PO TO LEVAQUIN IV DUE TO NPO DIAGNOSIS
[2018-06-14 16:00] VITALS: BP 94/59
[2018-06-14] MEDS ORDERED: LEVOFLOXACIN 500 MG /D5W 100ML 500 MG in PREMIX 1 EA IV SCH (16:24)
[2018-06-14] MEDS: LEVOFLOXACIN 500 MG /D5W 100ML 500 MG in PREMIX 1 EA IV SCH (17:48)
[2018-06-14] MEDS: ONDANSETRON HCL/PF 4 MG/2 ML VIAL IVP PRN (18:20)
--- NOTE | 2018-06-14 18:48 | NUR ---
MS RN CLOSING NOTE PATIENT RESTING COMFORTABLY IN BED AT THIS TIME. ABLE TO COMMUNICATE NEEDS. IV INTACT AND PATENT NO REDNESS OR SWELLING NOTED WITH IV FLUIDS RUNNING AT THIS TIME. ALL DUE MEDICATIONS GIVEN ORDERED AND ALL NURSING CARE NEEDS ATTENDED TO NEEDED. NPO AT THIS TIME. ALL ELECTROLYTES REPLACED THROUGHOUT SHIFT. AWAITING SURGICAL CONSULT WITH DR. MCFARLAND. CALL LIGHT WITHIN REACH AT ALL TIMES. WILL ENDORSE TO PROFESSOR OF VISUAL ARTS NURSE FOR ALETHEA
--- NOTE | 2018-06-14 19:09 | NUR ---
MS RN NOTE PATIENT REQUESTING DILAUDID FOR BACK PAIN 07/10. DILAUDID GIVEN WILL ENDORSE TO COOKING INSTRUCTOR NURSE FOR ALETHEA
--- NOTE | 2018-06-14 19:25 | NUR ---
MS RN OPENING NOTES: RECEIVED PT IN BED AND IS AWAKE AND A/OX3 WITH DAUGHTER AT BEDSIDE. INFORMED PT THAT SHE IS NPO. PT IS ON ROOM AIR AND TOLERATING WELL. PT HAS R HAND #22G AND IS BEING INFUSED WITH IV LEVAQUIN. CALL LIGHT WITHIN PT'S REACH. BED KEPT IN LOW, LOCKED POSITION, AND SIDE RAILS X 2UP. WILL CONTINUE TO MONITOR PT.
[2018-06-14 20:31] VITALS: BP 103/66
--- NOTE | 2018-06-14 20:31 | NUR ---
MS RN NOTES: CONSENT FOR BLOOD, PROCEDURE, ANESTHESIA OBTAINED AND PLACED IN CHART.
--- NOTE | 2018-06-14 23:40 | NUR ---
MS RN NOTES: SPOKE WITH DR. DURAN. INFORMED HIM THAT PT IS COMPLAINING OF PAIN AND IS NPO. PT ONLY HAS DILAUDID Q6HR PRN. PER DR. ROGER Marcano, OK TO CHANGE DILAUDID 1MG IV TO Q4HR PRN.
[2018-06-15] VITALS (20 sets, daily range): BP systolic 66–135; BP diastolic 41–74
[2018-06-15] MEDS: HYDROMORPHONE INJ 2 MG/ML DISP.SYRIN IV PRN ×3 (00:25→22:53)
--- NOTE | 2018-06-15 00:27 | NUR ---
MS RN NOTES: PT COMPLAINING OF 9/10 ACHY PAIN IN HER ABDOMEN AND REQUESTING FOR PAIN MED. PT WAS ADMINISTERED DILAUDID 1MG IV. WILL CONTINUE TO MONITOR.
[2018-06-15] MEDS: IV NS 0.9% 1,000 ML IV PRN ×2 (00:29→10:59)
[2018-06-15] MEDS: METRONIDAZOLE 500MG/ NS 100ML 500 MG in PREMIX 1 EA IV SCH ×3 (05:05→22:53)
--- NOTE | 2018-06-15 06:52 | NUR ---
MS RN CLOSING NOTES: ALL NEEDS WERE ATTENDED AND ANTICIPATED FOR. PT KEPT CLEAN, DRY, AND COMFORTABLE. PT TURNED AND REPOSITIONED PER PROTOCOL. PT ASLEEP AT THIS TIME AND IS ON ROOM AIR. PT HAS IV AND REMAINS INTACT AND IS BEING INFUSED WITH IV NS AT 100ML/HR. PT HAS BEEN NPO PT IS TO GO FOR PROCEDURE AT 13:30PM. CALL LIGHT WITHIN PT'S REACH. BED KEPT IN LOW, LOCKED POSITION, AND SIDE RAILS X 2UP. WILL ENDORSE TO AM NURSE FOR ALETHEA.
--- NOTE | 2018-06-15 07:56 | NUR ---
MS RN OPENING NOTE PATIENT SLEEPING AT THIS TIME, RESTING COMFORTABLY IN BED.ABLE TO COMMUNICATE TO NEEDS. ALERT AND ORIENTED X3. NPO FOR SURGERY TODAY. CONSENTS IN CHART. NO PAIN AT THIS TIME. NO SOB OR DISTRESS NOTED ON ROOM AIR TOLERATING WELL. IV INTACT AND PATENT NO REDNESS OR SWELLING NOTED WITH IV FLUIDS RUNNING AT THIS TIME. WILL CONTINUE TO MONITOR THROUGHOUT SHIFT
[2018-06-15] MEDS: PANTOPRAZOLE 40 MG VIAL IV SCH (10:48)
[2018-06-15 12:49] LABS: CALCIUM, SERUM 7.2 mg/dL (8.5-10.1); CARBON DIOXIDE 24 mmol/L (21-32); CHLORIDE 96 mmol/L (98-107); CREATININE 0.3 mg/dL (0.6-1.3); GLUCOSE 83 mg/dL (74-106); MAGNESIUM 1.5 mg/dL (1.8-2.4); PHOSPHORUS 1.8 mg/dL (2.5-4.9); POTASSIUM 3.1 mmol/L (3.5-5.1); SODIUM SERUM 130 mmol/L (136-145)
[2018-06-15 12:57] LABS: UREA NITROGEN, BLOOD 0 mg/dL (7-18)
[2018-06-15 13:18] LABS: BASOPHILS % (AUTO) 0.2 % (0.0-2.0); EOSINOPHILS % (AUTO) 0.3 % (0.0-6.0); HEMATOCRIT 29 % (33-45); HEMOGLOBIN 9.4 g/dL (11.5-14.8); LYMPHOCYTES % (AUTO) 7.8 % (20.0-44.0); MEAN CORPUSCULAR HEMOGLOBIN 30 PG (26.0-33.0); MEAN CORPUSCULAR HGB CONC 33 g/dl (31.0-36.0); MEAN CORPUSCULAR VOLUME 91 fL (82-100); MONOCYTES % (AUTO) 3.5 % (2.0-12.0); NEUTROPHILS % (AUTO) 88.2 % (43.0-81.0); PLATELET COUNT (AUTO) 198 /CMM (150-450); RDW COEFFICIENT OF VARIATION 15.4 (11.5-15.0); RED BLOOD CELL COUNT(AUTO) 3.12 MIL/uL (4.0-5.2); WHITE BLOOD COUNT (AUTO) 7.2 K/uL (4.3-11.0)
--- NOTE | 2018-06-15 14:38 | NUR ---
MS RN NOTE PATIENT HEADING DOWN TO SURGERY IN STABLE CONDITION. WILL RESUME CARE WHEN PATIENT RETURNS TO UNIT
[2018-06-15] MEDS ORDERED: HYDROMORPHONE INJ 2 MG/ML DISP.SYRIN ONE (15:09)
[2018-06-15] MEDS ORDERED: ROCURONIUM BROMIDE 50 MG/5 ML ONE (15:09)
[2018-06-15] MEDS ORDERED: CLINDAMYCIN 900 MG/6 ML VIAL ONE (15:09)
[2018-06-15] MEDS ORDERED: BUPIVACAINE 0.25% 75 MG/30 ML VIAL ONE (15:11)
[2018-06-15] MEDS ORDERED: LIDOCAINE 0.5% HCL 50 ML VIAL ONE (15:11)
[2018-06-15] MEDS ORDERED: DESFLURANE 240 ML BOTTLE IH ONE (15:37)
[2018-06-15] MEDS ORDERED: Sodium Phosphate 7.5 MMOL in IV D5W 100 ML IV ONE ×2 (16:00→20:00)
--- NOTE | 2018-06-15 17:54 | NUR ---
rn note report given to gayatri, curriculum supervisor. all medications given to rn. patient will go from surgery to icu room 253.
--- NOTE | 2018-06-15 18:40 | NUR ---
ACID PAINTER RECEIVED PATIENT FROM PACU NURSE. PATIENT IS DROWSY BUT ALERT. ABLE TO VERBALIZE NEEDS. NO DISTRESS. ON 2L NC. HYPOTENSIVE AT SBP 71. PER ANESTHESIOLOGIST THIS LOW BP IS ACCEPTABLE. PATIENT IS ON LR AT THIS TIME. FAMILY AT BEDSIDE AND SUPPORTIVE
[2018-06-15] MEDS: IV LR 1000 ML 1,000 ML IV PRN (18:47)
[2018-06-15] MEDS: LEVOFLOXACIN 500 MG /D5W 100ML 500 MG in PREMIX 1 EA IV SCH (18:48)
[2018-06-15] MEDS ORDERED: NOREPINEPHRINE 8 MG in IV D5W 500 ML IV PRN (19:00)
[2018-06-15] MEDS ORDERED: DOPamine 400 MG in IV D5W 250 ML IV PRN (19:00)
[2018-06-15] MEDS: MORPHINE SULFATE INJ 2 MG/ML DISP.SYRIN IV PRN (19:14)
--- NOTE | 2018-06-15 19:27 | NUR ---
STAFF CERTIFIED NURSE MIDWIFE RECEIVED ORDERS FROM [place] AIR AND WATER TESTER FOR DOPAMINE AND LEVOPHED FOR HYPOTENSION. DOPAMINE TO BE STARTED LOW DOSE UNTIL HYPOTENSION RESOLVES.
[2018-06-15] MEDS ORDERED: NOREPINEPHRINE 16 MG in IV D5W 500 ML IV PRN (19:30)
--- NOTE | 2018-06-15 20:21 | NUR ---
FOOD PRODUCTION SUPERVISOR. INITIAL ASSESSMENT. RECEIVED THE PT REST ON THE BED, AWAKE, ALERT FOLLOW COMMANDS.TRANSPORTATION INSPECTOR SHOWING S TACH. OXYGEN 2L VIA NASAL CANNULA, SAT 98%. NO ACUTE DISTRESS NOTED. SURGICAL DRESSING INTACT. LT SIDE COLOSTOMY BAG INTACT. IV RT WRIST 18G. IVF LR 80ML/H. RECEIVED WITH DOPAMINE 5MCG/KG/MIN. HEART RATE 140S. STOPPED DOPAMINE. CALLED DR DURAN. NICOLE STARTED. HEART RATE AT THIS TIME 90. FC PATENT. SURGICAL SITE CLEAN AND DRY. NO OOZING , OR BLEEDING NOTED. WILL CONTINUE TO MONITOR VITALS.
[2018-06-15] MEDS ORDERED: PHENYLEPHRINE 80 MG in IV D5W 250 ML IV PRN (20:30)
[2018-06-15] MEDS: ZOLPIDEM TARTRATE 5 MG TABLET PO PRN (21:01)
[2018-06-16] VITALS (64 sets, daily range): BP systolic 64–119; BP diastolic 14–74
--- NOTE | 2018-06-16 04:00 | NUR ---
CAFE OPERATOR. AM CARE, ORAL ACRE, BED BATH GIVEN. LINEN CHANGED, PT ON ROOM AIR. SAT 99%. NO ACUTE DISTRESS NOTED. CONVERSION MAN SHOWING NSR. IV LT HAND 22G. I F RL @80ML/H, NICOLE 30MCG/MIN, FC PATENT. URINE DRAINING. HOB ELEVATED. SURGICAL DRESSING CLEAN AND DRY. NO BLEEDING NOTED. TURN AND REPOSITION Q2H. WILL CONTINUE TO MONITOR VITALS.
[2018-06-16 05:15] LABS: HEMATOCRIT 34 % (33-45); HEMOGLOBIN 10.7 g/dL (11.5-14.8); MEAN CORPUSCULAR HEMOGLOBIN 30 PG (26.0-33.0); MEAN CORPUSCULAR HGB CONC 32 g/dl (31.0-36.0); MEAN CORPUSCULAR VOLUME 94 fL (82-100); RED BLOOD CELL COUNT(AUTO) 3.57 MIL/uL (4.0-5.2); WHITE BLOOD COUNT (AUTO) 21.4 K/uL (4.3-11.0)
[2018-06-16 05:16] LABS: LYMPHOCYTES % (AUTO) 2.4 % (20.0-44.0); MONOCYTES % (AUTO) 1.7 % (2.0-12.0); NEUTROPHILS % (AUTO) 95.9 % (43.0-81.0); PLATELET COUNT (AUTO) 294 /CMM (150-450); RDW COEFFICIENT OF VARIATION 16.5 (11.5-15.0)
[2018-06-16 05:18] LABS: CALCIUM, SERUM 7.5 mg/dL (8.5-10.1); CARBON DIOXIDE 21 mmol/L (21-32); CHLORIDE 98 mmol/L (98-107); CREATININE 0.5 mg/dL (0.6-1.3); GLUCOSE 118 mg/dL (74-106); MAGNESIUM 1.5 mg/dL (1.8-2.4); PHOSPHORUS 3.2 mg/dL (2.5-4.9); POTASSIUM 3.2 mmol/L (3.5-5.1); SODIUM SERUM 132 mmol/L (136-145); UREA NITROGEN, BLOOD 0 mg/dL (7-18)
[2018-06-16] MEDS: HYDROMORPHONE INJ 2 MG/ML DISP.SYRIN IV PRN ×3 (05:26→18:26)
[2018-06-16] MEDS: METRONIDAZOLE 500MG/ NS 100ML 500 MG in PREMIX 1 EA IV SCH ×3 (05:26→21:43)
[2018-06-16] MEDS: IV LR 1000 ML 1,000 ML IV PRN ×2 (05:26→21:54)
--- NOTE | 2018-06-16 05:44 | NUR ---
PT C/O ABDOMENAL PAIN DILAUDID IV GIVEN PER ORDERED.
[2018-06-16 05:51] LABS: BAND % (MANUAL) 2 % (0.0-5.0); LYMPHOCYTES % (MANUAL) 1 % (16-48); NEUTROPHILS % (MANUAL) 96 (42-76)
[2018-06-16 05:52] LABS: MONOCYTES % (MANUAL) 1 % (0-11.0)
--- NOTE | 2018-06-16 07:28 | NUR ---
INSTITUTION LIBRARIAN RECEIVED PATIENT FROM THE PREVIOUS SHIFT. PATIENT IS IN BED. RESTING COMFORTABLY. NEOSENEPHRINE AT 30 MCG. BP MONITORED. AFEBRILE. ABLE TO VERBALIZE NEEDS. CAZARES DRAINING URINE TO GRAVITY. WILL CONTINUE TO MONITOR AND PROVIDE CARE.
[2018-06-16] MEDS: MORPHINE SULFATE INJ 2 MG/ML DISP.SYRIN IV PRN (10:22)
[2018-06-16] MEDS ORDERED: POTASSIUM CL. PREMIX PERIPHER. 50 ML IV SCH (10:30)
[2018-06-16] MEDS: Magnesium 1GM/D5W 100ML PREMIX 100 ML IV SCH ×2 (10:40→12:18)
[2018-06-16] MEDS: POTASSIUM CHLORIDE 20 MEQ POWDER PACKET PO SCH ×2 (10:54→12:18)
[2018-06-16] MEDS: PANTOPRAZOLE 40 MG VIAL IV SCH (12:19)
[2018-06-16] MEDS: LEVOFLOXACIN 500 MG /D5W 100ML 500 MG in PREMIX 1 EA IV SCH (17:53)
--- NOTE | 2018-06-16 19:30 | NUR ---
ICU NOTES RECEIVED PT AWAKE ALERT OX3,DENIES PAIN OR DISCOMFORT.ABDOMINAL DRESSING DRY AND INTACT.COLOSTOMY BAG INTACT,NO DRAINAGE.
--- NOTE | 2018-06-16 19:35 | NUR ---
ICU/RN WHO'S IN ICU NOTIFIED OF LOW BP AND STATED ' LONG MAP IS>OR = THAN 65,IT'S OKAY.'
[2018-06-17] VITALS (25 sets, daily range): BP systolic 80–118; BP diastolic 46–67
--- NOTE | 2018-06-17 | NUR ---
ICU NOTES VITAL SIGNS STABLE.C/O ABDOMINAL PAIN,OPERATIVE SITE.GIVEN 1MG DILAUDID IVP.DRESSING DRY AND INTACT,NO DRAINAGE FR. COLOSTOMY.
[2018-06-17] MEDS: HYDROMORPHONE INJ 2 MG/ML DISP.SYRIN IV PRN ×3 (00:01→10:36)
--- NOTE | 2018-06-17 04:43 | NUR ---
ICU NOTES OFFERED BED BATH,BUT FLATLY REFUSED,STATES"IT'S TOO EARLY AND I'M CLEAN."
[2018-06-17 04:54] LABS: CALCIUM, SERUM 7.5 mg/dL (8.5-10.1); CARBON DIOXIDE 28 mmol/L (21-32); CHLORIDE 100 mmol/L (98-107); CREATININE 0.5 mg/dL (0.6-1.3); GLUCOSE 105 mg/dL (74-106); MAGNESIUM 1.8 mg/dL (1.8-2.4); POTASSIUM 3.4 mmol/L (3.5-5.1); SODIUM SERUM 135 mmol/L (136-145); UREA NITROGEN, BLOOD 1 mg/dL (7-18)
[2018-06-17] MEDS: METRONIDAZOLE 500MG/ NS 100ML 500 MG in PREMIX 1 EA IV SCH ×3 (05:51→22:43)
--- NOTE | 2018-06-17 07:05 | NUR ---
RN INITIAL NOTES RECEIVED PT AWAKE, A/OX3. ON ROOM AIR. NO RESPIRATORY DISTRESS NOTED. NO SOB NOTED. DENIES ANY PAIN. IV LINES IN PLACE. IVF INFUSING. DRESSING ON ABDOMEN CLEAN AND DRY. NO SIGNS OF BLEEDING NOTED. COLOSTOMY IN PLACE. FC IN PLACE. NO HEMATURIA NOTED. WILL MONITOR.
--- NOTE | 2018-06-17 07:17 | NUR ---
ICU NOTES REPORT AND CARE OF PT GIVEN TO REGINALD FLORES.
[2018-06-17] MEDS ORDERED: POTASSIUM CHLORIDE 20 MEQ TAB.PRT.SR PO SCH (10:00)
[2018-06-17] MEDS: PANTOPRAZOLE 40 MG VIAL IV SCH (10:31)
[2018-06-17] MEDS: ONDANSETRON HCL/PF 4 MG/2 ML VIAL IVP PRN (10:31)
--- NOTE | 2018-06-17 11:19 | NUR ---
RN NOTES SEEN AND EXAMINED BY DR ALMONTE. PT A/O, COLOSTOMY IN PLACE. ABDOMINAL DRESSING CLEAN AND DRY. PAIN WELL MANAGED. VS WNL. AWARE OF CURRENT LAB VALUES: POTASSIUM 3.4, REPLACED. PER MD, PT OK FOR DOWNGRADE. WILL MONITOR.
[2018-06-17] MEDS: IV LR 1000 ML 1,000 ML IV PRN (12:08)
[2018-06-17 14:01] LABS: BASOPHILS % (AUTO) 0.2 % (0.0-2.0); EOSINOPHILS % (AUTO) 0.1 % (0.0-6.0); HEMATOCRIT 22 % (33-45); HEMOGLOBIN 8.4 g/dL (11.5-14.8); LYMPHOCYTES # (AUTO) 0.7 /CMM (0.8-4.8); LYMPHOCYTES % (AUTO) 13.8 % (20.0-44.0); MEAN CORPUSCULAR HEMOGLOBIN 34 PG (26.0-33.0); MEAN CORPUSCULAR HGB CONC 38 g/dl (31.0-36.0); MEAN CORPUSCULAR VOLUME 90 fL (82-100); MONOCYTES # (AUTO) 0.3 /CMM (0.1-1.30); MONOCYTES % (AUTO) 6.3 % (2.0-12.0); NEUTROPHILS # (AUTO) 3.8 /CMM (1.8-8.9); NEUTROPHILS % (AUTO) 79.6 % (43.0-81.0); PLATELET COUNT (AUTO) 141 /CMM (150-450); RDW COEFFICIENT OF VARIATION 15.4 (11.5-15.0); RED BLOOD CELL COUNT(AUTO) 2.49 MIL/uL (4.0-5.2); WHITE BLOOD COUNT (AUTO) 4.8 K/uL (4.3-11.0)
[2018-06-17] MEDS: LEVOFLOXACIN 500 MG /D5W 100ML 500 MG in PREMIX 1 EA IV SCH (17:13)
[2018-06-17] MEDS: MORPHINE SULFATE INJ 2 MG/ML DISP.SYRIN IV PRN ×2 (18:27→19:59)
--- NOTE | 2018-06-17 18:32 | NUR ---
RN CLOSING NOTES PT REMAINS STABLE. NO SIGNIFICANT CHANGE NOTED. KEPT COMFORTABLE. PAIN WELL MANAGED. KEPT CLEAN AND DRY. ASSISTED IN REPOSITIONING. WILL ENDORSE FOR CONTINUITY OF CARE.
--- NOTE | 2018-06-17 19:30 | NUR ---
TATTOO ARTIST RCD PT S/P EXP LAP 06/15; PT IS A/O x2; HOWEVER PT STOPS ANSWERING QUESTIONS AND JUST NODS HEAD AT TIME. PT DENIES PAIN AT THIS TIME. NSR ON MONITOR. ON ROOM AIR. COLOSTOMY INTACT ON LLQ; NO OUTPUT AT THIS TIME.
--- NOTE | 2018-06-17 20:00 | NUR ---
MEDIA PRODUCTION MANAGER REPOSITIONED PT; PROVIDED ORAL AND SKIN CARE. PT REQUESTED MORPHINE BY NAME WELL A SLEEPING PILL. EDUCATED PT THAT BOTH COULD NOT BE GIVEN TO HER AT THE SAME TIME. PT APPEARED TO VERBALIZE UNDERSTANDING.
--- NOTE | 2018-06-17 20:14 | NUR ---
MOLD SPRAYER PT REQUESTED SOMETHING FOR HER PAIN. REMINDED PT SHE RECEIVED MORPHINE 3 MG THRU HER IV 15 MINUTES AGO. CONTINUE TO MONITOR.
[2018-06-17] MEDS: ZOLPIDEM TARTRATE 5 MG TABLET PO PRN (22:43)
--- NOTE | 2018-06-17 22:45 | NUR ---
REFRIGERATION TECH PT REQUESTED SLEEPING PILL; PT GIVEN AMBIEN 5 MG. PER PT SHE DOES NOT KNOW IF SHE TAKEN IT BEFORE. PER E MAR SHE HAS TAKEN IT BEFORE. EDUCATED PT ON AMBIEN MEDICATION.
[2018-06-18] VITALS (34 sets, daily range): BP systolic 90–128; BP diastolic 53–79
--- NOTE | 2018-06-18 | NUR ---
ORTHODONTIST VICE PRESIDENT PT DECLINED TO BE REPOSITIONED. PT DENIES PAIN.
[2018-06-18] MEDS: MORPHINE SULFATE INJ 2 MG/ML DISP.SYRIN IV PRN ×3 (00:54→14:25)
--- NOTE | 2018-06-18 00:59 | NUR ---
MIRROR INSPECTOR PT MEDICATED WITH MORPHINE 4 MG IV FOR PAIN LEVEL 10/10; THEN PT ASKED FOR MORPHINE. EXPLAINED TO PT SHE JUST RECEIVED MEDICATION. PT CLOSED HER EYES AND WENT BACK TO SLEEP.
--- NOTE | 2018-06-18 02:00 | NUR ---
MACHINE FELLER PT SLEEPING; HESITATED TO BE REPOSITIONED. EDUCATED ON THE IMPORTANCE TO PREVENT SKIN BREAKDOWN. PT AGREED TO BE REPOSITIONED. PT DENIES PAIN AT THIS TIME.
[2018-06-18 04:38] LABS: EOSINOPHILS % (AUTO) 0.2 % (0.0-6.0); HEMATOCRIT 24 % (33-45); HEMOGLOBIN 7.9 g/dL (11.5-14.8); LYMPHOCYTES # (AUTO) 0.5 /CMM (0.8-4.8); LYMPHOCYTES % (AUTO) 7.5 % (20.0-44.0); MEAN CORPUSCULAR HEMOGLOBIN 30 PG (26.0-33.0); MEAN CORPUSCULAR HGB CONC 33 g/dl (31.0-36.0); MEAN CORPUSCULAR VOLUME 92 fL (82-100); MONOCYTES # (AUTO) 0.3 /CMM (0.1-1.30); MONOCYTES % (AUTO) 4.2 % (2.0-12.0); NEUTROPHILS # (AUTO) 5.7 /CMM (1.8-8.9); NEUTROPHILS % (AUTO) 88.1 % (43.0-81.0); PLATELET COUNT (AUTO) 176 /CMM (150-450); RDW COEFFICIENT OF VARIATION 16.4 (11.5-15.0); RED BLOOD CELL COUNT(AUTO) 2.62 MIL/uL (4.0-5.2); WHITE BLOOD COUNT (AUTO) 6.5 K/uL (4.3-11.0)
[2018-06-18 04:51] LABS: CALCIUM, SERUM 7.2 mg/dL (8.5-10.1); CARBON DIOXIDE 29 mmol/L (21-32); CREATININE 0.4 mg/dL (0.6-1.3); GLUCOSE 92 mg/dL (74-106); MAGNESIUM 1.4 mg/dL (1.8-2.4); UREA NITROGEN, BLOOD 1 mg/dL (7-18)
[2018-06-18 05:00] LABS: CHLORIDE 99 mmol/L (98-107); SODIUM SERUM 135 mmol/L (136-145)
[2018-06-18] MEDS: METRONIDAZOLE 500MG/ NS 100ML 500 MG in PREMIX 1 EA IV SCH ×3 (05:02→23:10)
[2018-06-18] MEDS: IV LR 1000 ML 1,000 ML IV PRN (05:02)
[2018-06-18 05:03] LABS: POTASSIUM 2.7 mmol/L (3.5-5.1)
[2018-06-18] MEDS ORDERED: POTASSIUM CHLORIDE 20 MEQ TAB.PRT.SR PO ONE (07:30)
--- NOTE | 2018-06-18 07:50 | NUR ---
PUBLIC UTILITIES SALES REPRESENTATIVE: pt.is sleepy, oriented for POC, A/Ox3, dementia by report, c/o 6-06/09 pain around stoma, abdomen, ordered PRBC x1, H/H 7.9/24, no external bleeding by report, colostomy: intact, brown liquid stool, O2 sat. WNL, able swallow crushed meds per report, abdomen incision dressing intact/dry, K+2.7/got order for replacement, L.wrist 18PIVL: flashing+, blood return-, [id number]: flashing+, blood return+
[2018-06-18] MEDS: POTASSIUM CL. PREMIX PERIPHER. 50 ML IV SCH ×4 (08:01→14:26)
[2018-06-18] MEDS ORDERED: Magnesium 1GM/D5W 100ML PREMIX 100 ML IV SCH (09:33)
--- NOTE | 2018-06-18 10:00 | NUR ---
BOX CLOSING MACHINE OPERATOR: L.wrist 18PIVL painful, little redness around with K+ IV, no resistance with NS flashing, stopped K+IV (40meqPO+20meqIV given, needs 20 meq more), L.hand 22PIVL: good blood return, unable to place in more PIVL/attempts x4 done, waiting COLLEGE TEACHER for midline/PICC placement, one PRBC unit issued, started PRBC unit via L.hand 22 PIVL with slow rate to prevent hemolysis, charge nurse is notified/aware/agree
--- NOTE | 2018-06-18 10:45 | NUR ---
SAXOPHONE PLAYER: pt is tolerated well for blood transfusion, VSS, pt.family is in room/notified re pt.VS, c/o, orders, labs, POC
[2018-06-18] MEDS: PANTOPRAZOLE 40 MG VIAL IV SCH (11:56)
--- NOTE | 2018-06-18 13:10 | NUR ---
RETAIL SERVICE TECHNICIAN: PRBC unit is given, pt.is tolerated, VSS, no c/o. is in room, updated with pt.current condition, VS, pain level/meds, orders/included e-lytes replacement, I/O, meds, labs, LR IVF, no new order now
--- NOTE | 2018-06-18 16:20 | NUR ---
NEUROLOGY STROKE PHYSICIAN: unable to use PIVLs, waiting midline placement, pt.daughter called/updated with pt.condition, PM/wound/skin care done
[2018-06-18] MEDS: LEVOFLOXACIN (500MG) 500 MG TABLET PO SCH (18:09)
--- NOTE | 2018-06-18 18:10 | NUR ---
DINKEY ENGINE OPERATOR: inserted in R. upper arm midline, good flushing, good blood return
--- NOTE | 2018-06-18 18:12 | NUR ---
APPLICATIONS DEVELOPER: prev.note correction: inserted R.arm PIVL 20G
[2018-06-18] MEDS: Magnesium 1GM/D5W 100ML PREMIX 100 ML IV SCH ×4 (18:28→21:48)
--- NOTE | 2018-06-18 19:45 | NUR ---
RN NOTES RECEIVED PT RESTING ON BED. COMPLAINING OF PAIN AT HER BACK AND ABDOMEN AT SCALE OF 8/10. REPOSITIONED PT AND FEELS MUCH BETTER BUT ASKING FOR PAIN MEDICINE WELL. PT IS AOX 3 ABLE TO VERBALIZED FEELINGS AND NEEDS. SATURATION 97% NSR ON TELE MONITOR. AFEBRILE. IV SITE ON RANJAN WITH ONGOING FIRST BAG OF MAGNESIUM AND IVF LR @ 80 ML/HR INTACT AND PATENT. ABDOMINAL DRESSING INTACT NO ACTIVE BLEEDING PRESENT. COLOSTOMY BAG INTACT WITH BROWN LIQUID OUTPUT. INSTRUCTED TO USED CALL LIGHT FOR ASSISTANCE AND KEPT IT WITHIN EASY REACH.
[2018-06-18] MEDS: HYDROMORPHONE INJ 2 MG/ML DISP.SYRIN IV PRN (19:58)
[2018-06-18] MEDS: ZOLPIDEM TARTRATE 5 MG TABLET PO PRN (23:10)
[2018-06-18] MEDS: ONDANSETRON HCL/PF 4 MG/2 ML VIAL IVP PRN (23:21)
--- NOTE | 2018-06-18 23:30 | NUR ---
RN NOTES BED BATH DONE , PT REQUEST FOR SLEEPING PILLS, COMPLAINING THAT HIS HAVING A HARD TIME SLEEPING AT NIGHT AND SHE REALLY WANTS TO SLEEP PRN AMBIEN GIVEN ORDERED, AFTER 5 MINUTES NOTED PT TRYING TO THROW UP, STATED "I FEEL NAUSEOUS". PRN ZOFRAN GIVEN PRN. AND WILL CONTINUE TO MONITOR.
[2018-06-19] VITALS (19 sets, daily range): BP systolic 93–131; BP diastolic 48–73
[2018-06-19 04:30] LABS: BASOPHILS % (AUTO) 0.1 % (0.0-2.0); EOSINOPHILS % (AUTO) 0.4 % (0.0-6.0); HEMATOCRIT 29 % (33-45); HEMOGLOBIN 9.4 g/dL (11.5-14.8); LYMPHOCYTES # (AUTO) 0.6 /CMM (0.8-4.8); LYMPHOCYTES % (AUTO) 8.7 % (20.0-44.0); MEAN CORPUSCULAR HEMOGLOBIN 30 PG (26.0-33.0); MEAN CORPUSCULAR HGB CONC 33 g/dl (31.0-36.0); MEAN CORPUSCULAR VOLUME 91 fL (82-100); MONOCYTES # (AUTO) 0.3 /CMM (0.1-1.30); MONOCYTES % (AUTO) 4.6 % (2.0-12.0); NEUTROPHILS # (AUTO) 5.5 /CMM (1.8-8.9); NEUTROPHILS % (AUTO) 86.2 % (43.0-81.0); PLATELET COUNT (AUTO) 186 /CMM (150-450); RDW COEFFICIENT OF VARIATION 15.4 (11.5-15.0); RED BLOOD CELL COUNT(AUTO) 3.12 MIL/uL (4.0-5.2); WHITE BLOOD COUNT (AUTO) 6.4 K/uL (4.3-11.0)
[2018-06-19 04:38] LABS: CARBON DIOXIDE 29 mmol/L (21-32); CHLORIDE 95 mmol/L (98-107); CREATININE 0.4 mg/dL (0.6-1.3); GLUCOSE 116 mg/dL (74-106); MAGNESIUM 2.2 mg/dL (1.8-2.4); POTASSIUM 3.4 mmol/L (3.5-5.1); SODIUM SERUM 130 mmol/L (136-145)
[2018-06-19 04:59] LABS: UREA NITROGEN, BLOOD 0 mg/dL (7-18)
[2018-06-19] MEDS: METRONIDAZOLE 500MG/ NS 100ML 500 MG in PREMIX 1 EA IV SCH ×3 (05:29→21:55)
--- NOTE | 2018-06-19 06:36 | NUR ---
RN NOTES PT ASLEEP WELL OVERNIGHT, NO SIGNIFICANT ALETHEA NOTED. NO RESPIRATORY DISTRESS. AFEBRILE. VSS. COLOSTOMY CARE PROVIDED. F/C DRAINED WITH YELLOW CLEAR COLOR URINE. NAUSEA X 1 NOTED THROUGHOUT THE SHIFT. PRN MEDICINE EFFECTIVE. ABDOMINAL DRESSING KEPT INTACT NO ACTIVE BLEEDING LATEST HGB LEVEL 9.4 KCL 3.4 WILL FOLLOW UP MD IN AM. PT IS CLEANED AND DRY. WILL ENDORSED CONTINUITY OF CARE TO AM NURSE.
--- NOTE | 2018-06-19 08:00 | NUR ---
ELEMENTARY ASSISTANT PRINCIPAL: pt.is rest now, no c/o, no pain now, weak, A/Ox3, O2sat. WNL, SR, SBP over 100, Colostomy bag is intact/brown yellow stool, abdomen incision dressing intact/dry, Hb 9.4, was in room, got report from night nurse, said: ok to transfer to [facility], continue same LR IVF
[2018-06-19] MEDS: IV LR 1000 ML 1,000 ML IV PRN ×2 (08:34→22:03)
--- NOTE | 2018-06-19 09:30 | NUR ---
WOUND TREATMENT RN: pt.is rest, no c/o pain, VSS, pt.family is in room/notified re pt.vs, I/O, orders, POC, labs
--- NOTE | 2018-06-19 11:23 | NUR ---
SIX PACK PACKER: is in room, updated with pt.current status, neuro status, VS, pain level, I/O, LR IVF, clear liquid diet now, labs, meds, POC, said: ok transfer to [facility], ordered: production director consult
[2018-06-19] MEDS: PANTOPRAZOLE 40 MG VIAL IV SCH (11:36)
[2018-06-19] MEDS ORDERED: POTASSIUM CHLORIDE 20 MEQ TAB.PRT.SR PO SCH (12:00)
--- NOTE | 2018-06-19 15:40 | NUR ---
PARING MACHINE OPERATOR: pt.is rest, no c/o pain, more active, SR, o2sat. WNL, SBP over 100, better with appetite/needs DT consult by , for today continue clear liquid diet/meds need to be crashed, all PM, skin, wound, colostomy care are done, called to pharmacy before to get Flagyl 14.00 PB, pt.needs Z-quard/ordered, colostomy bag/base is intact
[2018-06-19] MEDS: HYDROCODONE/APAP 5/325MG 1 EACH TABLET PO PRN (16:26)
[2018-06-19] MEDS: LEVOFLOXACIN (500MG) 500 MG TABLET PO SCH (16:27)
--- NOTE | 2018-06-19 16:44 | NUR ---
GAS PUMPING STATION OPERATOR: full report was given for [facility] nurse, included skin problem, IVF
--- NOTE | 2018-06-19 17:00 | NUR ---
[facility] SHOE CLERK NOTE PT ARRIVED VIA GURNEY ACCOMPANIED BY TWO ICU STAFF IN STABLE CONDITION. PT IS A/O X2-3, RESPIRATIONS ARE EVEN AND UNLABORED, NOT IN ANY ACUTE DISTRESS NOTED. PUPILS ARE REACTIVE TO LIGHT. BILATERAL HAND CLOTH SHEARING SUPERVISOR ARE STRONG AND EQUAL. NO FACIAL GRIMACING OR MOANING NOTED. IV SITE INTACT, NO INFILTRATION NOTED. DRESSING KEPT CLEAN AND DRY. ABDOMEN IS SOFT AND NONDISTENDED. CAZARES CATH INTACT, TUBING FREE OF KINKS AND DRAINING FREELY. COLOSTOMY BAG INTACT, NOTED WITH SOFT BROWN STOOL. SAFETY MEASURES ARE IN PLACE. WILL REPOSITION PER PROTOCOL. WILL CONTINUE TO MONITOR THROUGHOUT SHIFT FOR CONTINUITY OF CARE.
--- NOTE | 2018-06-19 18:39 | NUR ---
[facility] RN CLOSING NOTES ALL NEEDS MET AND ANTICIPATED. PT IS A/O X2-3 AT THIS TIME. AWAKE AND RESPONSIVE, AFEBRILE. RESPIRATIONS ARE EVEN AND UNLABORED. NOT IN ANY ACUTE DISTRESS NOTED. IV SITE INTACT, NO INFILTRATION NOTED. DRESSING KEPT CLEAN AND DRY. HOB KEPT ELEVATED TO PREVENT ASPIRATION. REPOSITIONED PER PROTOCOL. SAFETY MEASURES ARE IN PLACE. WILL TO NEXT SHIFT FOR CONTINUITY OF CARE.
--- NOTE | 2018-06-19 20:00 | NUR ---
RN INITIAL NOTES RECEIVED PT RESTING ON BED. NO COMPLAIN OF PAIN AT THIS TIME. PT IS AOX 3 ABLE TO VERBALIZED FEELINGS AND NEEDS. SATURATION 97% NSR ON TELE MONITOR. AFEBRILE. IV SITE ON RANJAN WITH LR 80 ML/HR. ABDOMINAL DRESSING INTACT NO ACTIVE BLEEDING PRESENT. COLOSTOMY BAG INTACT WITH BROWN LIQUID OUTPUT. CALL LIGHT WITHIN EASY REACH. BED IN LOW LOCKED POSITION. WILL CONT TO MONITOR.
--- NOTE | 2018-06-19 23:55 | NUR ---
RN CLOSING NOTES REPORT GIVING TO MARGOT FOR ALETHEA.
[2018-06-20] VITALS: BP 111/63
[2018-06-20] MEDS: HYDROCODONE/APAP 5/325MG 1 EACH TABLET PO PRN ×2 (01:43→10:10)
[2018-06-20 04:00] VITALS: BP 115/66
[2018-06-20] MEDS: METRONIDAZOLE 500MG/ NS 100ML 500 MG in PREMIX 1 EA IV SCH (05:25)
[2018-06-20 06:14] LABS: BASOPHILS % (AUTO) 0.1 % (0.0-2.0); EOSINOPHILS % (AUTO) 0.3 % (0.0-6.0); HEMATOCRIT 31 % (33-45); HEMOGLOBIN 10.1 g/dL (11.5-14.8); LYMPHOCYTES # (AUTO) 0.8 /CMM (0.8-4.8); LYMPHOCYTES % (AUTO) 12.3 % (20.0-44.0); MEAN CORPUSCULAR HEMOGLOBIN 30 PG (26.0-33.0); MEAN CORPUSCULAR HGB CONC 33 g/dl (31.0-36.0); MEAN CORPUSCULAR VOLUME 92 fL (82-100); MONOCYTES # (AUTO) 0.2 /CMM (0.1-1.30); MONOCYTES % (AUTO) 3.6 % (2.0-12.0); NEUTROPHILS # (AUTO) 5.4 /CMM (1.8-8.9); NEUTROPHILS % (AUTO) 83.7 % (43.0-81.0); PLATELET COUNT (AUTO) 176 /CMM (150-450); RDW COEFFICIENT OF VARIATION 15.6 (11.5-15.0); RED BLOOD CELL COUNT(AUTO) 3.38 MIL/uL (4.0-5.2); WHITE BLOOD COUNT (AUTO) 6.5 K/uL (4.3-11.0)
[2018-06-20 07:04] LABS: CALCIUM, SERUM 7.2 mg/dL (8.5-10.1); CARBON DIOXIDE 28 mmol/L (21-32); CHLORIDE 96 mmol/L (98-107); CREATININE 0.4 mg/dL (0.6-1.3); GLUCOSE 97 mg/dL (74-106); POTASSIUM 3.7 mmol/L (3.5-5.1); SODIUM SERUM 132 mmol/L (136-145); UREA NITROGEN, BLOOD 0 mg/dL (7-18)
--- NOTE | 2018-06-20 07:35 | NUR ---
[facility] RN NOTE: RECEIVED PATIENT IN BED, ASLEEP AND AROUSABLE WITH TACTILE STIMULI AND WHEN CALLING HER NAME. RESPIRATION IS EVEN AND UNLABORED SATURATING 98%. DENIED ANY PAIN AT THIS TIME. RESTING COMFORTABLY WITH HOB ELEVATED AT 35 DEGREE. ON DATA CAPTURE SPECIALIST SR HR= 90. (R) ARM 20G IV LINE NOTED PATENT AND INTACT INFUSING LR @80ML/HR. COLOSTOMY IN PLACED WITH SMALL AMOUNT OF BROWN LIQUID STOOL. CAZARES CATHETER IN PLACED WITH NO URINE OUTPUT AT THIS TIME. CALL LIGHT WITHIN REACH. NEEDS ANTICIPATED.
--- NOTE | 2018-06-20 07:38 | NUR ---
RN/[facility] NOTES: REPORT GIVEN TO NEXT SHIFT NURSE FOR ALETHEA.
[2018-06-20 08:00] VITALS: BP 117/68
[2018-06-20] MEDS: ONDANSETRON HCL/PF 4 MG/2 ML VIAL IVP PRN (10:13)
--- NOTE | 2018-06-20 11:11 | NUR ---
[facility] RN NOTE: DR. ALMONTE PRESENT IN THE UNIT AND MADE HIM AWARE THAT THE PATIENT ATE HER BREAKFAST MEAL 100%. PATIENT WAS NAUSEOUS AND WAS GIVEN ZOFRAN PRN ORDERED. PATIENT WAS ALSO GIVEN NORCO 5-325 MG X1 DUE TO ABDOMINAL PAIN MAINLY ON THE SURGICAL SITE. MID-ABDOMINAL SURGICAL SITE WAS NOTED INTACT WITH HANNAH IN PLACED. NO BLEEDING AND NO REDNESS ON THE AREA. COLOSTOMY WAS INTACT WELL. PER DR. ALMONTE, OK TO ADVANCED TO FULL LIQUID DIET STARTING LUNCH TIME TODAY, ORDER, NOTED AND CARRIED OUT. PATIENT WAS MADE AWARE.
[2018-06-20] MEDS: PANTOPRAZOLE 40 MG VIAL IV SCH (11:27)
[2018-06-20 12:00] VITALS: BP 96/62
[2018-06-20] MEDS: IV LR 1000 ML 1,000 ML IV PRN (12:13)
[2018-06-20] MEDS ORDERED: METRONIDAZOLE 500 MG TABLET PO SCH (13:18)
[2018-06-20] MEDS: METRONIDAZOLE 500 MG TABLET PO SCH ×2 (13:23→21:05)
--- NOTE | 2018-06-20 15:45 | NUR ---
INTERSTATE BUS DISPATCHER NOTE: PATIENT WAS NOTED WITH YELLOW DRAINAGE APPEARS LIKE URINE ON THE COLOSTOMY BAG. CALLED AND INFORMED DR. MCFARLAND ABOUT IT AND MD WITH ORDER, NOTED AND CARRIED OUT. PATIENT MADE AWARE.
[2018-06-20 16:00] VITALS: BP 122/73
--- NOTE | 2018-06-20 17:18 | NUR ---
NURSE EXAMINER NOTE: CALLED AND PAGED DR. MCFARLAND RE: THE URINE SAMPLE RESULT FROM THE COLOSTOMY BAG. IT SHOWED CREATININE <5.0. AWAITING FOR MD'S RESPONSE.
--- NOTE | 2018-06-20 17:20 | NUR ---
WHIP OPERATOR NOTE: DR. MCFARLAND RESPONDED RE: THE URINE CREATININE LEVEL RESULT AND PER MD THE DRAINAGE COMING OUT OF THE COLOSTOMY BAG WAS NOT A URINE. MD WITH NO ORDER AT THIS TIME.
[2018-06-20] MEDS: LEVOFLOXACIN (500MG) 500 MG TABLET PO SCH (17:22)
[2018-06-20] MEDS: HYDROMORPHONE INJ 2 MG/ML DISP.SYRIN IV PRN (17:23)
--- NOTE | 2018-06-20 18:55 | NUR ---
PAYROLL HUMAN RESOURCES ASSISTANT NOTE: SPOKE WITH DR. MCFARLAND RE: THE PATIENT'S COLOSTOMY DRAINAGE. PER MD, HE WANTED TO RUN MORE TEST ON IT. MD ORDERED A METHYLENE BLUE TEST TO VERIFY IF THE DRAINAGE COMING OUT OF THE COLOSTOMY WAS TRUE URINE. ORDER, NOTED AND CARRIED OUT. PATIENT MADE AWARE.
[2018-06-20] MEDS ORDERED: METHYLENE BLUE AMP (1ML) 1 ML AMPUL IJ ONE (19:00)
--- NOTE | 2018-06-20 19:30 | NUR ---
TELE/RN NOTES: RECEIVED PT. IN BED W/ HOB ELEVATED. A/O X 2-3 FORGETFUL AND CONFUSION. ON TELE MONITOR W/ SR @ 96. HAS R ARM G # 20 PATENT AND INTACT W/ NO S/S OF INFECTION/INFILTRATION NOTED. W/ LR @ 80CC/HR. W/ MID LOWER ABDOMEN SURGICAL SITE W/ HANNAH W/ CLEAN DRESSING INTACT. W/ COLOSTOMY BAG HAS YELLOW COLOR DRAINAGE. HAS A F/C PATENT AND INTACT DRAINING LISSY , SEDIMENTS URINE. BEDS LOCKED AND IN LOW POSITION. DENIES ANY C/O PAIN OR DISCOMFORT AT THIS TIME. CALL LIGHT W/ REACH. WILL CONTINUE TO MONITOR.
[2018-06-20 20:00] VITALS: BP 117/69
--- NOTE | 2018-06-20 20:22 | NUR ---
PLUG MAKER NOTE: METHYLENE BLUE 3ML WAS GIVEN THROUGH IV PER DR. MCFARLAND'S ORDER TO CONFIRM AND VERIFY IF THE DRAINAGE COMING OUT OF THE COLOSTOMY BAG IS A TRUE URINE. ENDORSED TO PM SHIFT NURSE TO MONITOR. SPOKE WITH ON-CALL PHARMACIST, NIKIA AND HE VERIFIED THAT IT IS SAFE TO ADMNINISTER THE METHYLENE BLUE THROUGH IV.
[2018-06-21] VITALS: BP 115/72
[2018-06-21] MEDS: HYDROMORPHONE INJ 2 MG/ML DISP.SYRIN IV PRN ×2 (00:08→18:32)
[2018-06-21] MEDS: IV LR 1000 ML 1,000 ML IV PRN ×2 (03:58→18:24)
[2018-06-21 04:00] VITALS: BP 117/69
[2018-06-21] MEDS: METRONIDAZOLE 500 MG TABLET PO SCH ×3 (06:11→20:15)
--- NOTE | 2018-06-21 07:18 | NUR ---
TELE/RN NOTES. AFTER THE ADMINISTRATION OF METHYLENE BLUE THIS MORNING HER COLOSTOMY DRAINAGE IS STILL W/ YELLOW COLOR W/ SEDIMENT DRAINAGE. NO ACUTE CHANGES NOTED DURING THIS SHIFT. REPORT GIVEN TO AM NURSE FOR ALETHEA.
[2018-06-21 08:00] VITALS: BP 117/74
--- NOTE | 2018-06-21 08:31 | NUR ---
SQL DATA ARCHITECT NOTES PATIENT IN BED, A/O X3, FORGETFUL, REORIENT EASILY. SINUS RHYTHM HR 93 ON THE TELE MONITOR. ABDOMINAL SURGICAL INCISION WITH STAPLE INTACT, NO BLEEDING NOTED. COLOSTOMY WITH FLUID DRAINAGE, YELLOWISH COLOR, DR. MCFARLAND WAS AWARE PER NIGHT RN REPORT. CAZARES CATH INTACT, DRAINING TO GRAVITY, URINE YELLOW TO SLIGHTLY GREENISH COLOR. CURRENTLY ON FULL LIQUIDS DIET, PATIENT HAS NO APPETITE TO EAT AT THIS TIME, DENIES NAUSEA, NO VOMITING. CALL LIGHT WITHIN REACH. WILL CONT TO MONITOR.
[2018-06-21 09:00] LABS: EOSINOPHILS % (AUTO) 0.1 % (0.0-6.0); HEMATOCRIT 33 % (33-45); HEMOGLOBIN 10.8 g/dL (11.5-14.8); LYMPHOCYTES # (AUTO) 0.7 /CMM (0.8-4.8); LYMPHOCYTES % (AUTO) 6.3 % (20.0-44.0); MEAN CORPUSCULAR HEMOGLOBIN 30 PG (26.0-33.0); MEAN CORPUSCULAR HGB CONC 32 g/dl (31.0-36.0); MEAN CORPUSCULAR VOLUME 91 fL (82-100); MONOCYTES # (AUTO) 0.3 /CMM (0.1-1.30); MONOCYTES % (AUTO) 3.2 % (2.0-12.0); NEUTROPHILS # (AUTO) 9.8 /CMM (1.8-8.9); NEUTROPHILS % (AUTO) 90.4 % (43.0-81.0); PLATELET COUNT (AUTO) 193 /CMM (150-450); RDW COEFFICIENT OF VARIATION 15.9 (11.5-15.0); RED BLOOD CELL COUNT(AUTO) 3.63 MIL/uL (4.0-5.2); WHITE BLOOD COUNT (AUTO) 10.8 K/uL (4.3-11.0)
[2018-06-21 09:18] LABS: CALCIUM, SERUM 7.3 mg/dL (8.5-10.1); CARBON DIOXIDE 24 mmol/L (21-32); CHLORIDE 99 mmol/L (98-107); CREATININE 0.4 mg/dL (0.6-1.3); GLUCOSE 102 mg/dL (74-106); MAGNESIUM 1.4 mg/dL (1.8-2.4); POTASSIUM 3.3 mmol/L (3.5-5.1); SODIUM SERUM 132 mmol/L (136-145); UREA NITROGEN, BLOOD 2 mg/dL (7-18)
[2018-06-21] MEDS: PANTOPRAZOLE 40 MG VIAL IV SCH (11:46)
[2018-06-21] MEDS: ONDANSETRON HCL/PF 4 MG/2 ML VIAL IVP PRN ×2 (12:05→18:22)
[2018-06-21 12:19] VITALS: BP 121/70
[2018-06-21] MEDS ORDERED: METOCLOPRAMIDE HCL 10 MG/2 ML VIAL IV ONE (14:30)
[2018-06-21] MEDS ORDERED: POTASSIUM CHLORIDE 20 MEQ TAB.PRT.SR PO ONE (15:00)
[2018-06-21] MEDS: Magnesium 1GM/D5W 100ML PREMIX 100 ML IV SCH ×3 (15:11→17:11)
[2018-06-21 16:33] VITALS: BP 117/72
[2018-06-21] MEDS: LEVOFLOXACIN (500MG) 500 MG TABLET PO SCH (17:15)
--- NOTE | 2018-06-21 18:47 | NUR ---
LIBRARY CUSTOMER SERVICE CLERK NOTES PATIENT IN BED, BREATHING ON ROOM AIR WITH NO SOB. POTASSIUM AND MAGNESIUM SUPPLEMENTED ORDERED. STILL ON FULL LIQUIDS DIET. COLOSTOMY WITH STOOL, LIQUIDS AND BROWN, MINIMAL AMOUNT. ABDOMINAL SURGICAL INCISION WITH HANNAH INTACT, NO NOTED BLEEDING. EPISODE OF NAUSEA,NO VOMITING DURING THE SHIFT, MEDICATED WITH IV ZOFRAN PRN X2. SEEN BY DR. MCFARLAND, PER MD IF NAUSEA NOT RESOLVE AND PATIENT STARTS TO VOMIT, DO CT ABDOMEN/PELVIS WO, ALSO XR CHEST TOMORROW. WILL ENDORSE TO ONCOMING RN.
--- NOTE | 2018-06-21 19:20 | NUR ---
FISHING VESSEL CAPTAIN NOTES RECEIVED PATIENT IN BED, ALERT AND ORIENTED, ABLE TO COMMUNICATE NEEDS AND CONCERNS, NO C/O OF PAIN OR DISCOMFORT AT THIS TIME, NO VOMITING AT THIS TIME, DENIES NAUSEA AT THIS TIME, SINUS RHYTHM HR 99 ON THE TELE MONITOR. ABDOMINAL SURGICAL INCISION WITH STAPLE INTACT, NO S/S OF INFECTION, NO BLEEDING OR DRAINAGE NOTED AT THIS TIME, COLOSTOMY IN PLACED WITH SOFT BROW COLOR STOOL, RIGHT HAND PIV LINE 20G INTACT AND PATENT, NO S./S OF INFILTRATION IVF INFUSING WELL AND PATIENT TOLERATED WELL, CAZARES CATH IN PLACE, PATENCY INTACT, CLEAR YELLOW URINE NOTED DRAINING BY GRAVITY, ALL NEEDS PROVIDED, ON PAIN MANAGEMENT, BED LOCKED AND IN LOW POSITION, CALL LIGHT WITHIN REACH. WILL CONT TO MONITOR CLOSELY.
[2018-06-21 20:00] VITALS: BP_SYST 120; BP_SYST 122; BP_DIAS 64; BP_DIAS 69
[2018-06-21] MEDS: MORPHINE SULFATE INJ 2 MG/ML DISP.SYRIN IV PRN (20:15)
--- NOTE | 2018-06-21 22:09 | NUR ---
I, VIC RAMOS, RT, ATTEMPTED TO DO THE CT ON THIS PT AT 22:00. NURSE TOLD ME THAT THE ORDER IS THERE ONLY IF THE PT CONTINUED VOMITING. PT HAS NOT BEEN VOMITING FOR THE PAST 2 AND 1/2 HRS. RN TOLD ME TO WAIT AND SEE HOW THE PT DOES TONIGHT.
[2018-06-22] VITALS: BP 122/69
[2018-06-22] MEDS: ONDANSETRON HCL/PF 4 MG/2 ML VIAL IVP PRN (02:49)
[2018-06-22] MEDS: MORPHINE SULFATE INJ 2 MG/ML DISP.SYRIN IV PRN ×4 (02:54→22:39)
[2018-06-22 04:00] VITALS: BP 122/67
[2018-06-22] MEDS: METRONIDAZOLE 500 MG TABLET PO SCH ×3 (05:00→20:56)
[2018-06-22 06:36] LABS: BASOPHILS % (AUTO) 0.2 % (0.0-2.0); CALCIUM, SERUM 6.8 mg/dL (8.5-10.1); CARBON DIOXIDE 29 mmol/L (21-32); CHLORIDE 97 mmol/L (98-107); CREATININE 0.3 mg/dL (0.6-1.3); EOSINOPHILS % (AUTO) 0.4 % (0.0-6.0); GLUCOSE 103 mg/dL (74-106); HEMATOCRIT 30 % (33-45); HEMOGLOBIN 9.6 g/dL (11.5-14.8); LYMPHOCYTES # (AUTO) 0.9 /CMM (0.8-4.8); LYMPHOCYTES % (AUTO) 11.4 % (20.0-44.0); MAGNESIUM 1.7 mg/dL (1.8-2.4); MEAN CORPUSCULAR HEMOGLOBIN 30 PG (26.0-33.0); MEAN CORPUSCULAR HGB CONC 33 g/dl (31.0-36.0); MEAN CORPUSCULAR VOLUME 91 fL (82-100); MONOCYTES # (AUTO) 0.4 /CMM (0.1-1.30); MONOCYTES % (AUTO) 4.8 % (2.0-12.0); NEUTROPHILS # (AUTO) 6.5 /CMM (1.8-8.9); NEUTROPHILS % (AUTO) 83.2 % (43.0-81.0); PLATELET COUNT (AUTO) 169 /CMM (150-450); POTASSIUM 3.5 mmol/L (3.5-5.1); RDW COEFFICIENT OF VARIATION 15.7 (11.5-15.0); RED BLOOD CELL COUNT(AUTO) 3.23 MIL/uL (4.0-5.2); SODIUM SERUM 131 mmol/L (136-145); UREA NITROGEN, BLOOD 1 mg/dL (7-18); WHITE BLOOD COUNT (AUTO) 7.9 K/uL (4.3-11.0)
--- NOTE | 2018-06-22 06:50 | NUR ---
TIRE TRUCKER NOTES PATIENT IN BED, AWAKE ALERT AND ORIENTED, ABLE TO COMMUNICATE NEEDS AND CONCERNS, NO C/O OF PAIN OR DISCOMFORT AT THIS TIME, NO VOMITING AT THIS TIME, DENIES NAUSEA, BUT ZOFRAN ADMINISTERED TWICE DURING THIS SHIFT, NO EPISODES OF VOMITING DURING THE SHIFT, SINUS RHYTHM HR 99 ON THE TELE MONITOR. ABDOMINAL SURGICAL INCISION WITH STAPLE INTACT, NO S/S OF INFECTION, NO BLEEDING OR DRAINAGE NOTED AT THIS TIME, COLOSTOMY IN PLACED EMPTY AT THIS TIME, RIGHT HAND PIV LINE 20G INTACT AND PATENT, NO S./S OF INFILTRATION IVF INFUSING WELL AND PATIENT TOLERATED WELL, CAZARES CATH IN PLACE, PATENCY INTACT, CLEAR YELLOW URINE NOTED DRAINING BY GRAVITY, ALL NEEDS PROVIDED, ON PAIN MANAGEMENT, BED LOCKED AND IN LOW POSITION, CALL LIGHT WITHIN REACH. WILL ENDORSE CONTINUATION OF CARE TO ONCOMING NURSE.
[2018-06-22] MEDS: IV LR 1000 ML 1,000 ML IV PRN ×2 (07:20→22:32)
--- NOTE | 2018-06-22 07:48 | NUR ---
CRAB BACKER NOTES: RECEIVED PT ON BED ALERT, AWAKE AND ORIENTED X3. ABLE TO MAKE NEEDS KNOWN. NO ACUTE DISTRESS NOTED. COMPLAINED OF ABDOMINAL PAIN, PRN PAIN MEDS GIVEN. NO SOB NOTED. ON TELE MONITOR SINUS RHYTHM, HR 91BPM. IV ON RIGHT WRIST INTACT AND PATENT, WITH IVF LR RUNNING AT 80ML/HR, INFUSING WELL. COLOSTOMY INTACT. CALL LIGHT PLACED WITHIN REACH. KEPT CLEAN, DRY AND COMFORTABLE. SAFETY AND FALL PRECAUTIONS OBSERVED AND MAINTAINED. WILL CONTINUE TO MONITOR PT.
[2018-06-22 08:00] VITALS: BP 116/69
[2018-06-22] MEDS: Magnesium 1GM/D5W 100ML PREMIX 100 ML IV SCH ×2 (10:17→11:17)
[2018-06-22] MEDS: PANTOPRAZOLE 40 MG VIAL IV SCH (11:38)
[2018-06-22 12:00] VITALS: BP 121/72
[2018-06-22 16:00] VITALS: BP 108/69
[2018-06-22] MEDS: LEVOFLOXACIN (500MG) 500 MG TABLET PO SCH (17:45)
--- NOTE | 2018-06-22 18:21 | NUR ---
WAREHOUSE ORDER PULLER NOTES: NO CHANGES THROUGHOUT THE SHIFT. SINUS RHYTHM ON TELE MONITOR. NO COMPLAINTS OF PAIN OR DISCOMFORT. KEPT PT CLEAN, DRY AND COMFORTABLE. SAFETY AND FALL PRECAUTIONS OBSERVED AND MAINTAINED. CALL LIGHT PLACED WITHIN REACH. WILL ENDORSE TO CENTRAL STERILE TECHNICIAN FOR ALETHEA.
--- NOTE | 2018-06-22 19:30 | NUR ---
DATA ANALYST REPORT WRITER NOTES RECEIVED PATIENT IN BED, ALERT AND ORIENTED, ABLE TO COMMUNICATE NEEDS AND CONCERNS, NO C/O OF PAIN OR DISCOMFORT AT THIS TIME, NO VOMITING AT THIS TIME, DENIES NAUSEA AT THIS TIME, SINUS RHYTHM HR 100 ON THE TELE MONITOR. ABDOMINAL SURGICAL INCISION WITH STAPLE INTACT, NO S/S OF INFECTION, NO BLEEDING OR DRAINAGE NOTED AT THIS TIME, COLOSTOMY IN PLACED EMPTY AT THIS TIME, RIGHT HAND PIV LINE 20G INTACT AND PATENT, NO S/S OF INFILTRATION IVF LR @80ML/HR INFUSING WELL AND PATIENT TOLERATED WELL, CAZARES CATH IN PLACE, PATENCY INTACT, CLEAR YELLOW URINE NOTED DRAINING BY GRAVITY, ALL NEEDS PROVIDED, BED LOCKED AND IN LOW POSITION, CALL LIGHT WITHIN REACH. WILL CONTINUE TO MONITOR CLOSELY.
[2018-06-22 20:00] VITALS: BP 142/83
[2018-06-23] VITALS (7 sets, daily range): BP systolic 109–142; BP diastolic 70–89
[2018-06-23] MEDS: ONDANSETRON HCL/PF 4 MG/2 ML VIAL IVP PRN ×6 (01:07→21:15)
[2018-06-23] MEDS: MORPHINE SULFATE INJ 2 MG/ML DISP.SYRIN IV PRN (01:08)
[2018-06-23] MEDS: METRONIDAZOLE 500 MG TABLET PO SCH ×3 (04:46→21:06)
[2018-06-23 06:27] LABS: EOSINOPHILS % (AUTO) 0.4 % (0.0-6.0); HEMATOCRIT 31 % (33-45); HEMOGLOBIN 10.1 g/dL (11.5-14.8); LYMPHOCYTES # (AUTO) 0.9 /CMM (0.8-4.8); LYMPHOCYTES % (AUTO) 9.9 % (20.0-44.0); MEAN CORPUSCULAR HEMOGLOBIN 29 PG (26.0-33.0); MEAN CORPUSCULAR HGB CONC 32 g/dl (31.0-36.0); MEAN CORPUSCULAR VOLUME 91 fL (82-100); MONOCYTES # (AUTO) 0.4 /CMM (0.1-1.30); MONOCYTES % (AUTO) 4.2 % (2.0-12.0); NEUTROPHILS # (AUTO) 7.6 /CMM (1.8-8.9); NEUTROPHILS % (AUTO) 85.5 % (43.0-81.0); PLATELET COUNT (AUTO) 172 /CMM (150-450); RDW COEFFICIENT OF VARIATION 15.8 (11.5-15.0); RED BLOOD CELL COUNT(AUTO) 3.44 MIL/uL (4.0-5.2); WHITE BLOOD COUNT (AUTO) 8.9 K/uL (4.3-11.0)
[2018-06-23 06:33] LABS: CALCIUM, SERUM 7.1 mg/dL (8.5-10.1); CARBON DIOXIDE 28 mmol/L (21-32); CHLORIDE 96 mmol/L (98-107); CREATININE 0.3 mg/dL (0.6-1.3); GLUCOSE 110 mg/dL (74-106); MAGNESIUM 1.7 mg/dL (1.8-2.4); POTASSIUM 3.1 mmol/L (3.5-5.1); SODIUM SERUM 132 mmol/L (136-145); UREA NITROGEN, BLOOD 2 mg/dL (7-18)
--- NOTE | 2018-06-23 06:42 | NUR ---
POCKET MAKER NOTES PATIENT IN BED, SLEEPING AT THIS TIME, BUT EASILY AROUSABLE TO VERBAL STIMULI, NO C/O OF PAIN OR DISCOMFORT AT THIS TIME, NO VOMITING AT THIS TIME, DENIES NAUSEA, ZOFRAN ADMINISTERED ONCE DURING THIS SHIFT, SR IN THE 90S ON THE TELE MONITOR AT THIS TIME, ABDOMINAL SURGICAL INCISION WITH STAPLE INTACT, NO S/S OF INFECTION, NO BLEEDING OR DRAINAGE NOTED AT THIS TIME, COLOSTOMY IN PLACED, RIGHT HAND PIV LINE 20G INTACT AND PATENT, NO S./S OF INFILTRATION IVF INFUSING WELL AND PATIENT TOLERATED WELL, CAZARES CATH IN PLACE, PATENCY INTACT, CLEAR YELLOW URINE NOTED DRAINING BY GRAVITY, ALL NEEDS PROVIDED, BED LOCKED AND IN LOW POSITION, CALL LIGHT WITHIN REACH. WILL ENDORSE CONTINUATION OF CARE TO ONCOMING NURSE.
--- NOTE | 2018-06-23 11:15 | NUR ---
Patient had syncopal episode when attempted to sit patient up and ambulate with physical therapy. Rapid response called. Patient had pulse and blood pressure but had LOC for brief period. ABG obtained and primary MD notified of event
[2018-06-23] MEDS: POTASSIUM CHLORIDE 20 MEQ POWDER PACKET PO SCH ×2 (11:19→12:00)
[2018-06-23] MEDS: Magnesium 1GM/D5W 100ML PREMIX 100 ML IV SCH ×2 (11:19→12:01)
[2018-06-23] MEDS: PANTOPRAZOLE 40 MG VIAL IV SCH (11:20)
--- NOTE | 2018-06-23 11:29 | NUR ---
DR. MACK AND BRYSON SAN[place], SAIMA WAS MADE AWARE OF THE ABG RESULT. NO NEW ORDER GIVEN AT THIS TIME. PATIENT WAS TOLERATING THE OXYGEN 3L/MIN VIA NC SATURATING 97%.
[2018-06-23 11:50] LABS: ABG BASE EXCESS 0.9 mmol/L; ABG PCO2 31.6 mmHg (35.0-45.0); ABG PH 7.492 (7.350-7.450); ABG PO2 413.9 mmHg (75.0-100.0); AaDO2 123.3 mmHg; COHb 0.4 % (0.5-1.5); MetHb 0.3 % (0.0-1.5); O2Hb 98.3 % (94.0-97.0); SITE, ABG Right Femoral; VENT MODE, BG NON REBREATHER
[2018-06-23] MEDS ORDERED: POTASSIUM CHLORIDE 20 MEQ POWDER PACKET PO SCH (13:30)
[2018-06-23] MEDS: LEVOFLOXACIN (500MG) 500 MG TABLET PO SCH (17:28)
[2018-06-23] MEDS: IV LR 1000 ML 1,000 ML IV PRN (17:29)
--- NOTE | 2018-06-23 20:15 | NUR ---
NETWORK SECURITY ENGINEER NOTES RECEIVED PATIENT IN BED, SLEEPING , BREATHING EVEN AND UNLABORED, NO SOB/ACUTE DISTRESS NOTED, NO C/O OF PAIN OR DISCOMFORT AT THIS TIME, NO VOMITING AT THIS TIME, SINUS RHYTHM HR 90S ON THE TELE MONITOR. ABDOMINAL SURGICAL INCISION WITH HANNAH INTACT, NO S/S OF INFECTION, NO BLEEDING OR DRAINAGE NOTED AT THIS TIME, COLOSTOMY IN PLACED NO STOOL NOTED IN THE COLOSTOMY BAG AT THIS TIME, RIGHT HAND PIV LINE 20G INTACT AND PATENT, NO S/S OF INFILTRATION IVF LR @80ML/HR INFUSING WELL AND PATIENT TOLERATED WELL, CAZARES CATH IN PLACE, PATENCY INTACT, CLEAR YELLOW URINE NOTED DRAINING BY GRAVITY, ALL NEEDS PROVIDED, BED LOCKED AND IN LOW POSITION, CALL LIGHT WITHIN REACH. WILL CONTINUE TO MONITOR CLOSELY.
[2018-06-24] VITALS: BP 127/76
[2018-06-24] MEDS: MORPHINE SULFATE INJ 2 MG/ML DISP.SYRIN IV PRN ×4 (00:05→19:36)
[2018-06-24 04:00] VITALS: BP 122/64
[2018-06-24] MEDS: IV LR 1000 ML 1,000 ML IV PRN ×2 (04:45→20:45)
[2018-06-24] MEDS: METRONIDAZOLE 500 MG TABLET PO SCH ×3 (04:45→20:44)
[2018-06-24 06:09] LABS: BASOPHILS % (AUTO) 0.2 % (0.0-2.0); EOSINOPHILS % (AUTO) 0.8 % (0.0-6.0); HEMATOCRIT 29 % (33-45); HEMOGLOBIN 9.4 g/dL (11.5-14.8); LYMPHOCYTES # (AUTO) 0.7 /CMM (0.8-4.8); LYMPHOCYTES % (AUTO) 12.6 % (20.0-44.0); MEAN CORPUSCULAR HEMOGLOBIN 30 PG (26.0-33.0); MEAN CORPUSCULAR HGB CONC 33 g/dl (31.0-36.0); MEAN CORPUSCULAR VOLUME 91 fL (82-100); MONOCYTES # (AUTO) 0.4 /CMM (0.1-1.30); MONOCYTES % (AUTO) 6.3 % (2.0-12.0); NEUTROPHILS # (AUTO) 4.6 /CMM (1.8-8.9); NEUTROPHILS % (AUTO) 80.1 % (43.0-81.0); PLATELET COUNT (AUTO) 167 /CMM (150-450); RDW COEFFICIENT OF VARIATION 15.8 (11.5-15.0); RED BLOOD CELL COUNT(AUTO) 3.15 MIL/uL (4.0-5.2); WHITE BLOOD COUNT (AUTO) 5.7 K/uL (4.3-11.0)
[2018-06-24 06:26] LABS: ALANINE AMINOTRANSFERASE < 6 U/L (12-78); ALBUMIN 1.5 g/dL (3.4-5.0); ALKALINE PHOSPHATASE 67 U/L (46-116); ASPARTATE AMINOTRANSFERASE 13 U/L (15-37); BILIRUBIN,DIRECT 0.2 mg/dL (0.0-0.2); BILIRUBIN,TOTAL 0.6 mg/dL (0.2-1.0); CALCIUM, SERUM 6.8 mg/dL (8.5-10.1); CARBON DIOXIDE 30 mmol/L (21-32); CHLORIDE 96 mmol/L (98-107); CREATININE 0.3 mg/dL (0.6-1.3); GLUCOSE 95 mg/dL (74-106); MAGNESIUM 1.7 mg/dL (1.8-2.4); POTASSIUM 3.1 mmol/L (3.5-5.1); SODIUM SERUM 128 mmol/L (136-145); UREA NITROGEN, BLOOD 1 mg/dL (7-18)
--- NOTE | 2018-06-24 06:55 | NUR ---
SUPERVISOR TRAVEL TRAILER NOTES PATIENT IN BED, SLEEPING AT THIS TIME, BUT EASILY AROUSABLE TO VERBAL STIMULI, NO C/O OF PAIN OR DISCOMFORT AT THIS TIME, NO EPISODES OF VOMITING AT THIS TIME, DENIES NAUSEA, ZOFRAN ADMINISTERED ONCE DURING THIS SHIFT, SR IN THE 80-90S ON THE TELE MONITOR AT THIS TIME, ABDOMINAL SURGICAL INCISION WITH STAPLE INTACT, NO S/S OF INFECTION, NO BLEEDING OR DRAINAGE NOTED AT THIS TIME, COLOSTOMY IN PLACED, RIGHT HAND PIV LINE 20G INTACT AND PATENT, NO S./S OF INFILTRATION IVF INFUSING WELL AND PATIENT TOLERATED WELL, CAZARES CATH IN PLACE, PATENCY INTACT, CLEAR YELLOW URINE NOTED DRAINING BY GRAVITY, ALL NEEDS PROVIDED, BED LOCKED AND IN LOW POSITION, CALL LIGHT WITHIN REACH. NO SIGNIFICANT CHANGE IN CONDITION DURING THE NIGHT, WILL ENDORSE CONTINUATION OF CARE TO ONCOMING NURSE.
--- NOTE | 2018-06-24 07:56 | NUR ---
MACHINE STITCHER NOTES: RECEIVED PT ON BED ASLEEP, NO ACUTE DISTRESS NOTED. NO COMPLAINTS OF PAIN OR DISCOMFORT AT THIS TIME. BREATHING EVEN AND UNLABORED WITH NORMAL RESPIRATIONS. COLOSTOMY INTACT. CAZARES CATH INTACT AND PATENT WITH CLEAR YELLOW URINE DRAINING. KEPT CLEAN, DRY AND COMFORTABLE. CALL LIGHT PLACED WITHIN REACH. WILL CONTINUE TO MONITOR PT.
[2018-06-24 08:00] VITALS: BP 115/63
[2018-06-24] MEDS ORDERED: POTASSIUM CHLORIDE 20 MEQ TAB.PRT.SR PO SCH (11:00)
[2018-06-24] MEDS: POTASSIUM CL. PREMIX PERIPHER. 50 ML IV SCH ×4 (11:05→14:26)
[2018-06-24] MEDS: PANTOPRAZOLE 40 MG VIAL IV SCH (11:05)
[2018-06-24] MEDS: Magnesium 1GM/D5W 100ML PREMIX 100 ML IV SCH ×2 (11:28→12:34)
[2018-06-24 12:00] VITALS: BP 117/78
[2018-06-24 16:00] VITALS: BP 122/79
[2018-06-24] MEDS: LEVOFLOXACIN (500MG) 500 MG TABLET PO SCH (18:07)
--- NOTE | 2018-06-24 18:15 | NUR ---
PRESS TENDER NOTES: CALLED ULTRASOUND TO CLARIFY IF PT NEEDS TO BE NPO POST MIDNIGHT FOR HIDA SCAN, PER DIRECTOR OF PUBLIC RELATIONS, JUST PUT PT ON NPO POST MIDNIGHT. WILL ENDORSE TO MEDICAL BILLER.
--- NOTE | 2018-06-24 18:47 | NUR ---
DIRECTOR FUNERAL NOTES: NO CHANGES THROUGHOUT THE SHIFT. DENIES PAIN AT THIS TIME. BREATHING EVEN AND UNLABORED WITH NORMAL RESPIRATIONS. ON TELE MONITOR SINUS RHYTHM HR 86BPM. VERBAL CONSENT FOR HIDA SCAN SCHEDULED TOMORROW WAS GIVEN BY DAUGHTER JORDAN AROUND 550PM. CAZARES CATH INTACT AND PATENT WITH CLEAR YELLOW URINE DRAINING. KEPT CLEAN, DRY AND COMFORTABLE. SAFETY AND FALL PRECAUTIONS OBSERVED AND MAINTAINED. WILL ENDORSE TO COVERSTITCH ELASTIC ATTACHER FOR CONTINUITY OF CARE.
--- NOTE | 2018-06-24 19:31 | NUR ---
BEST WORKER NOTES RECEIVED PT ON BED A/OX3. ON NC 2LPM SATURATING WELL. NO RESPIRATORY DISTRESS NOTED. COLOSTOMY DRAINING WELL AND CAZARES CATH DRAINING WELL. ON TELE MONITOR SR 90. IV ACCESS ON RIGHT WRIST #22 LR @80CC/HR RUNNING WELL. NO SIGN OF INFLAMMATION OR REDNESS. HEAD OF BED ELEVATED. SIDE RAILS UP. CALL LIGHT WITHIN REACH. BED ALARM ON. WILL CONTINUE TO MONITOR PT CLOSELY.
[2018-06-24 20:00] VITALS: BP 110/64
[2018-06-24] MEDS: ZOLPIDEM TARTRATE 5 MG TABLET PO PRN (22:03)
[2018-06-25] VITALS: BP 108/62
[2018-06-25 04:00] VITALS: BP 117/70
[2018-06-25] MEDS: METRONIDAZOLE 500 MG TABLET PO SCH ×3 (04:01→13:58)
[2018-06-25] MEDS: MORPHINE SULFATE INJ 2 MG/ML DISP.SYRIN IV PRN ×2 (04:49→15:38)
[2018-06-25 06:39] LABS: CARBON DIOXIDE 27 mmol/L (21-32); CHLORIDE 97 mmol/L (98-107); CREATININE 0.2 mg/dL (0.6-1.3); GLUCOSE 83 mg/dL (74-106); POTASSIUM 3.4 mmol/L (3.5-5.1); SODIUM SERUM 132 mmol/L (136-145); UREA NITROGEN, BLOOD 1 mg/dL (7-18)
--- NOTE | 2018-06-25 07:51 | NUR ---
MEAT COOLER CLOSING NOTES NO ACUTE CHANGES NOTED DURING THE SHIFT. PROVIDED COMFORT AND SAFETY. DUE MEDS GIVEN. PT KEPT NPO. REPOSITIONED PT Q2H. ENDORSED TO THE AM NURSE FOR CONTINUITY OF CARE.
[2018-06-25 08:00] VITALS: BP 109/67
--- NOTE | 2018-06-25 08:00 | NUR ---
[facility] RN NOTES: RECEIVED BEDSIDE REPORT FROM AM NURSE. PT ON BED AWAKE, A/OX2-3 WITH EPISODES OF CONFUSION, NO ACUTE DISTRESS, NO SOB NOTED AT THIS TIME. PATIENT COMPLAINTS OF PAIN 2/10 AT THIS TIME BUT SHE VOICED THAT SHE IS TOLERATING THAT LEVEL OF PAIN . BREATHING EVEN AND UNLABORED WITH NORMAL RESPIRATIONS. COLOSTOMY INTACT. CAZARES CATH INTACT AND PATENT WITH CLEAR YELLOW URINE DRAINING ON GRAVITY. RIGHT HAND 22G IV LINE IS LEAKING AND IS REMOVED, NEW ONE IS STARTED RIGHT HAND 22G, PATIENT, INTACT. ALL SAFETY MEASURES ARE IMPLEMENTED, BED IN LOW, LOCKED POSITION, CALL LIGHT PLACED WITHIN REACH. WILL CONTINUE TO MONITOR PT.
[2018-06-25] MEDS ORDERED: POTASSIUM CHLORIDE 20 MEQ TAB.PRT.SR PO SCH (10:30)
--- NOTE | 2018-06-25 11:15 | NUR ---
[facility] RN NOTES PATIENT WAS NOT ON THE FLOOR, SHE WAS TAKEN TO HIDA SCAN. POTASSIUM CHLORIDE WILL BE ADMINISTERED WHEN PATIENT COMES BACK FROM HIDA SCAN.
[2018-06-25 12:00] VITALS: BP 119/69
--- NOTE | 2018-06-25 12:00 | NUR ---
[facility] RN NOTES PATIENT IS BACK FROM HIDA SCAN , IT WAS UNSUCCESSFUL. PATIENT WILL GO TO HIDA SCAN AGAIN AT 1340 TODAY. IV ROPPASIUM CHLORIDE WILL BE ADMINISTERED NOW.
[2018-06-25] MEDS: PANTOPRAZOLE 40 MG VIAL IV SCH (12:07)
[2018-06-25] MEDS: POTASSIUM CL. PREMIX PERIPHER. 50 ML IV SCH ×2 (12:07→20:36)
[2018-06-25] MEDS: ONDANSETRON HCL/PF 4 MG/2 ML VIAL IVP PRN (15:30)
--- NOTE | 2018-06-25 15:45 | NUR ---
[facility] RN NOTES PATIENT COMPLAINS OF IV LINE PAIN. IV LINE RIGHT HAND 22G WAS LEAKING AND REMOVED .RIGHT HAND 24G NEW IV LINE STARTED . THIS 24G IV LINE WAS NOT WORKING EIDER AND BY MD ORDER NEW MIDLINE WILL BE STARTED AND SECOND BAG OF POTASSIUM CHLORIDE WILL BE ADMINISTERED. WAITING FOR MIDLINE NURSE.
[2018-06-25 16:00] VITALS: BP 109/62
--- NOTE | 2018-06-25 17:00 | NUR ---
[facility] RN NOTES RIGHT BASILIC MIDLINE IV LINE G18 INSERTION IS DONE BY MIDLINE NURSE 06/25/2018.
--- NOTE | 2018-06-25 19:30 | NUR ---
RN INITIAL NOTES Received endorsement from previous shift. Patient is alert and oriented x4. Able to make needs known. patient denies any pain and discomfort at this time. on 2lpm of O2 via NC. SR on tele with inverted Twave, HR 86. s/p insertion of RANJAN midline, good blood return noted. F/C intact and patent, draining via gravity. Chart review done. clarified KCl replacement order from day shift nurse, MARK Squires. patient supposed to receive 20mEq KCl. Per MARK Squires, patient was a hardstick, and was awaiting midline insertion; which was done at 1830 by midline nurse. Also, per AM RN, patient to remain NPO with ATB to be converted to IV. pharmacy made aware. awaiting medication supply for meds to be administered. Addendum: 06/26/18 at 0631 by MORGAN JOHNSON RN Inquired to AM shift nurse how much output was removed from the colostomy bag. Per AM shift nurse, the patient has refused to be touched nor repositioned her shift and she does not know nor touched the patient.
[2018-06-25 20:00] VITALS: BP 114/69
--- NOTE | 2018-06-25 20:30 | NUR ---
RN NOTES Patient was repositioned. PM care rendered. Patient's coccygeal area noted with mepilex with bleeding noted. further assessment done, patient noted with sacrococcygeal area wound, pictures taken and filed in chart. charge nurse made aware. initial wound treatment rendered. wound consult to be ordered. patient to be turned and repositioned [id number] and prn for comfort. Addendum: 06/26/18 at 0736 by MORGAN JOHNSON RN incident report done:[id number]
[2018-06-25] MEDS: IV LR 1000 ML 1,000 ML IV PRN (20:35)
[2018-06-25] MEDS: METRONIDAZOLE 500MG/ NS 100ML 500 MG in PREMIX 1 EA IV SCH (21:24)
[2018-06-25] MEDS: LEVOFLOXACIN 500 MG /D5W 100ML 500 MG in PREMIX 1 EA IV SCH (22:15)
[2018-06-26] VITALS: BP 103/60
[2018-06-26] MEDS: MORPHINE SULFATE INJ 2 MG/ML DISP.SYRIN IV PRN ×5 (02:52→20:44)
[2018-06-26 04:00] VITALS: BP 104/67
[2018-06-26] MEDS: IV LR 1000 ML 1,000 ML IV PRN ×2 (05:12→20:34)
[2018-06-26] MEDS: METRONIDAZOLE 500MG/ NS 100ML 500 MG in PREMIX 1 EA IV SCH ×3 (05:12→20:39)
--- NOTE | 2018-06-26 06:31 | NUR ---
RN CLOSING NURSE Patient no distress observed overnight. remains SR with inverted T wave. IVF as ordered. ATB given as ordered. kept NPO. turned and repositioned [id number] and PRN. patient medicated for pain as needed with good help, patient slept comfortably overnight. needs anticipated and met. call light in reach. will endorse accordingly for continuity of care.
--- NOTE | 2018-06-26 07:00 | NUR ---
SENIOR DATABASE ADMINISTRATOR NOTES: RECEIVED BEDSIDE REPORT FROM PM NURSE. PT ON BED SLEEPING, NO ACUTE DISTRESS, NO SOB NOTED AT THIS TIME. BREATHING EVEN AND UNLABORED WITH NORMAL RESPIRATIONS. COLOSTOMY INTACT. CAZARES CATH INTACT AND PATENT WITH CLEAR YELLOW URINE DRAINING ON GRAVITY. ON TELE MONITOR WITH SR 91.NPO.L UPPER MIDLINE WITH LR @80CC/HR. ALL SAFETY MEASURES ARE IMPLEMENTED, BED IN LOW, LOCKED POSITION, CALL LIGHT PLACED WITHIN REACH. WILL CONTINUE TO MONITOR P
[2018-06-26 07:09] LABS: CALCIUM, SERUM 7.5 mg/dL (8.5-10.1); CARBON DIOXIDE 27 mmol/L (21-32); CHLORIDE 96 mmol/L (98-107); CREATININE 0.3 mg/dL (0.6-1.3); GLUCOSE 70 mg/dL (74-106); POTASSIUM 3.9 mmol/L (3.5-5.1); SODIUM SERUM 132 mmol/L (136-145); UREA NITROGEN, BLOOD 2 mg/dL (7-18)
[2018-06-26 08:00] VITALS: BP 111/69
--- NOTE | 2018-06-26 08:28 | NUR ---
WOUND CARE CONSULT: PT PRESENTS WITH RE-OPENED PRESSURE ULCER OVER PREVIOUS PRESSURE ULCER SCARRED AREA. PT STATES HAD SACRAL PRESSURE ULCER A YEAR OR SO AGO. ADMISSION PHOTOS SHOW SACRAL SCARRING WELL STAINING OF SKIN ON BUTTOCKS WITH UNEVEN PIGMENTATION. SACRAL AREA IS EXTREMELY BONY. PT ALSO NOTED TO HAVE RASH TO PERIANAL AND PERINEAL AREAS. RECOMMENDATIONS MADE FOR WOUND CARE AND SKIN CARE, SKIN PROTECTION. DISCUSSED WITH NURSING STAFF. INSTRUCTED PT ON IMPORTANCE OF OFFLOADING (ALLOWING NURSING STAFF TO TURN AND REPOSITION HER EVERY 2 HOURS). PT STATES UNDERSTANDING AND WILLINGNESS TO COMPLY. FIRST STEP MATTRESS ORDERED. WILL SEE PRN. MARTINEZ IN AGREEMENT WITH PLAN OF CARE. Addendum: 06/26/18 at 0837 by HOLA MCFARLAND WNDNU Amended: Links added.
--- NOTE | 2018-06-26 08:30 | NUR ---
PHYSICIAN INTERVENTIONAL CARDIOLOGIST NOTES SEEN BY WOUND CARE CONSULT WITH NEW ORDERS.ORDERED SPECIALTY MATTRESS.
[2018-06-26] MEDS: HYDROGEL DRESSING 90 GM TUBE TP SCH (10:01)
[2018-06-26] MEDS: CLOTRIMAZOLE 1% 15 GM TUBE TP SCH ×2 (10:01→16:21)
[2018-06-26] MEDS: PANTOPRAZOLE 40 MG VIAL IV SCH (11:13)
[2018-06-26 12:00] VITALS: BP 117/67
--- NOTE | 2018-06-26 12:20 | NUR ---
MAINFRAME PROGRAMMER NOTES SEEN BY [facility] ,PATIENT WAS NOT ABLE TO FULLY PARTICIPATE.SHE SAID SHE IS NPO NOW WILL TRY TOMORROW.
[2018-06-26] MEDS ORDERED: DEXTROSE 50%-WATER 50 ML DISP.SYRIN IVP PRN (13:00)
[2018-06-26] MEDS: ONDANSETRON HCL/PF 4 MG/2 ML VIAL IVP PRN (13:14)
--- NOTE | 2018-06-26 13:30 | NUR ---
MINERALOGY PROFESSOR NOTES NOTED WITH PATIENT C/O SOB.ON O2 2L.SHE IS AXOX3.BLOOD SUGAR AND VITAL SIGNS CHECKED.STABLE VITAL SIGNS BP122/74,O2 SAT 100%,P-84,RR-18,TEMP 98.4F.BLOOD SUGAR LEVEL IS 64.SAIMA MASSEY MADE AWARE .SEEN BY SAIMA MASSEY WITH NEW ORDERERS.HE IS WAITING FOR TO FOLLOW UP WITH HIDA SCAN RESULT.GOT NEW ORDER FOR D50% PRN IV X1 GIVEN .C/O NAUSEA.PRN ZOFRAN GIVEN.WILL CONTINUE TO MONITOR.
[2018-06-26 13:53] LABS: BASOPHILS # (AUTO) 0.1 /CMM (0.0-0.2); BASOPHILS % (AUTO) 1.1 % (0.0-2.0); EOSINOPHILS % (AUTO) 0.4 % (0.0-6.0); HEMATOCRIT 30 % (33-45); HEMOGLOBIN 9.5 g/dL (11.5-14.8); LYMPHOCYTES # (AUTO) 1.1 /CMM (0.8-4.8); MEAN CORPUSCULAR HEMOGLOBIN 30 PG (26.0-33.0); MEAN CORPUSCULAR HGB CONC 32 g/dl (31.0-36.0); MEAN CORPUSCULAR VOLUME 92 fL (82-100); MONOCYTES # (AUTO) 0.3 /CMM (0.1-1.30); MONOCYTES % (AUTO) 6.8 % (2.0-12.0); NEUTROPHILS % (AUTO) 66.7 % (43.0-81.0); PLATELET COUNT (AUTO) 167 /CMM (150-450); RED BLOOD CELL COUNT(AUTO) 3.22 MIL/uL (4.0-5.2); WHITE BLOOD COUNT (AUTO) 4.5 K/uL (4.3-11.0)
[2018-06-26 14:03] LABS: ALBUMIN 1.7 g/dL (3.4-5.0); BILIRUBIN,DIRECT 0.1 mg/dL (0.0-0.2); BILIRUBIN,TOTAL 0.8 mg/dL (0.2-1.0); TOTAL PROTEIN, SERUM 4.4 g/dL (6.4-8.2)
[2018-06-26 16:00] VITALS: BP 120/72
--- NOTE | 2018-06-26 16:00 | NUR ---
ASSORTMENT PLANNER NOTES PATIENT REFUSED TURNING AND REPOSITIONING.TOLD THAT SHE WANT TO SLEEP.DENIED PAIN.EXPLAINED RISK AND BENEFITS OF IT,STILL REFUSED.WILL CONTINUE TO MONITOR.
--- NOTE | 2018-06-26 16:07 | NUR ---
ANIMAL REHABILITATOR NOTES GOT NEW ORDER FOR MRCP.SPOKE TO THERMIT WELDING MACHINE OPERATOR HERMINIA ABOUT PATIENT HAS POST SURGICAL HANNAH AT THE SURGICAL SITE.SHE SAID THE VISUALS WONT BE CLEAR IF ITS WITH HANNAH AND ALSO CHANCE TO BE PULLED OUT.SAIMA MASSEY MADE AWARE.GOT AN ORDER TO CANCELL MRCP AND STILL WAITING FOR .
--- NOTE | 2018-06-26 17:30 | NUR ---
WOVEN PAPER HAT MENDER NOTES SEEN BY MADE AWARE THAT PATIENT STILL HAVE ABDOMINAL PAIN AND C/O NAUSEA.NO DISCHARGES NOTED IN COLOSTOMY BAG.SURGICAL INCISION IS CLEAN.MADE AWARE ABOUT THE RESULT OF THE HIDA SCAN.TOLD TO CONTINUE THE SAME TREATMENT AND TO FOLLOW UP WITH SURGERY FOR HIDA SCAN RESULT AND NPO STATUS.FOLLOWED UP WITH WHITE SPOOLER BRYSON TOLD THAT HE IS STILL WAITING FOR DR.BABAK RICARDO.
--- NOTE | 2018-06-26 18:00 | NUR ---
COTTAGE ATTENDANT NOTES F/CIS LEAKING .INSERTED NEW F/C [id number].CLEAN YELLOW URINE WITH SEDIMENTS NOTED .WILL CONTINUE TO MONITOR.
--- NOTE | 2018-06-26 19:19 | NUR ---
SEWER AND INSPECTOR SHIFT END NOTES: . PT ON BED SLEEPING, NO ACUTE DISTRESS, NO SOB NOTED AT THIS TIME.EASILY AWAKE.SHE DONT WANT TO GET BOTHERED. BREATHING EVEN AND UNLABORED WITH NORMAL RESPIRATIONS. COLOSTOMY INTACT. CAZARES CATH INTACT AND PATENT WITH CLEAR YELLOW URINE DRAINING ON GRAVITY. ON TELE MONITOR WITH SR 84.NPO.L UPPER MIDLINE WITH LR @80CC/HR. ALL SAFETY MEASURES ARE IMPLEMENTED, BED IN LOW, LOCKED POSITION, CALL LIGHT PLACED WITHIN REACH. ENDORSED TO PM NURSE TO FOLLOW UP WITH FOR NPO STATUS AND PLAN FOR THE HIDA SCAN RESULT AND FOR ALETHEA.
[2018-06-26 20:00] VITALS: BP 145/81
--- NOTE | 2018-06-26 20:00 | NUR ---
Rn initial notes Received patient in bed, pt is alert and oriented x4. Able to make needs known. patient on 2 L of O2 via NC. SR on tele with inverted T wave, HR 97. RANJAN midline with IV fluid infusing . F/C intact and patent, draining via gravity. Pt c/o of pain 07/10 will give pain meds as ordered . Will turn pt Q2. safety precautions taken. Bed in low locked position, call light with in reach. Will cont to monitor.
[2018-06-26] MEDS: LEVOFLOXACIN 500 MG /D5W 100ML 500 MG in PREMIX 1 EA IV SCH (20:36)
[2018-06-27] VITALS: BP 116/72
[2018-06-27 04:00] VITALS: BP 116/75
[2018-06-27] MEDS: METRONIDAZOLE 500MG/ NS 100ML 500 MG in PREMIX 1 EA IV SCH ×2 (05:11→13:56)
[2018-06-27] MEDS: MORPHINE SULFATE INJ 2 MG/ML DISP.SYRIN IV PRN ×3 (05:51→22:28)
--- NOTE | 2018-06-27 06:10 | NUR ---
RN CLOSING NURSE Patient no distress observed overnight. Remains SR with inverted T wave. IVF as ordered. diet advanced as tolerated. Pt turned and repositioned [id number] and PRN. Patient medicated for pain as needed with good help, patient slept comfortably overnight. All needs anticipated and met. Call light in reach. Will endorse accordingly for continuity of care.
[2018-06-27 08:00] VITALS: BP 124/69
--- NOTE | 2018-06-27 08:00 | NUR ---
WILLY RN NOTES RECEIVED REPORT FROM AM NURSE. PATIENT IN BED. A/OX3 WITH EPISODES OF FORGETFULNESS . PATIENT' DAUGHTER AT BEDSIDE AND CONVINCED HER TO LET US TO DO SKIN ASSESSMENT AND WOUND CARE. TODAY PATIENT IS MORE COOPERATIVE AND WILLING TO HAVE US TO GIVE HER BED BATH. WOUND CARE IS DONE BY WOUND CARE ORDER. YESTERDAY PATIENT WAS VERY AGITATED AND REFUSED SKIN ASSESSMENT AND BED BATH MULTIPLE TIMES WITCH WAS WITNESSED BY RIVKA BRUNO, EVEN THOUGH ALL THE RISKS AND BENEFITS WERE EXPLAINED TO THE PATIENT. TODAY PATIENT IS SR ON TESTING DIRECTOR, ON 2L O2 VIA NC. CAZARES CATHETER IN PLACE, INTACT. IV MIDLINE IS NOTED ON RIGHT UPPER ARM WITH IV FLUIDS RUNNING. NO SOB NOTED AT THIS TIME. PATIENT COMPLAINS OF PAIN 2/10 AT THIS TIME. ALL SAFETY MEASURES ARE IMPLEMENTED, BED IN LOW, LOCKED POSITION, CALL LIGHT IN REACH, PATIENT TURNED AND REPOSITIONED Q2HR. WILL CONT. TO MONITOR.
[2018-06-27] MEDS: HYDROGEL DRESSING 90 GM TUBE TP SCH (10:21)
[2018-06-27] MEDS: CLOTRIMAZOLE 1% 15 GM TUBE TP SCH ×2 (10:22→17:23)
[2018-06-27 12:00] VITALS: BP 130/60
[2018-06-27] MEDS: PANTOPRAZOLE 40 MG VIAL IV SCH (12:39)
[2018-06-27 16:00] VITALS: BP 143/67
[2018-06-27 20:00] VITALS: BP 162/62
--- NOTE | 2018-06-27 20:00 | NUR ---
Rn initial notes Received patient in bed, pt is alert and oriented x4. Able to make needs known. patient on 2 L of O2 via NC. ST, HR 100. RANJAN midline with IV fluid infusing . F/C intact and patent, draining via gravity. Pt c/o of pain 07/10 will give pain meds as ordered . Will turn pt Q2. Safety precautions taken. Bed in low locked position, call light with in reach. Will cont to monitor.
[2018-06-27] MEDS: IV LR 1000 ML 1,000 ML IV PRN (22:15)
[2018-06-27] MEDS: LEVOFLOXACIN 500 MG /D5W 100ML 500 MG in PREMIX 1 EA IV SCH (22:17)
[2018-06-27] MEDS: METRONIDAZOLE 500 MG TABLET PO SCH (22:27)
[2018-06-28] VITALS: BP 100/47
[2018-06-28 04:00] VITALS: BP 121/47
[2018-06-28] MEDS: METRONIDAZOLE 500 MG TABLET PO SCH ×3 (04:12→20:52)
[2018-06-28] MEDS: MORPHINE SULFATE INJ 2 MG/ML DISP.SYRIN IV PRN ×3 (04:39→15:56)
--- NOTE | 2018-06-28 06:09 | NUR ---
RN CLOSING NURSE No distress observed overnight. Pt ST HR 100-110 with inverted t waves. IVF as ordered. diet advanced as tolerated to full liquid. Pt turned and repositioned [id number] and PRN. Patient medicated for pain as needed, . All needs anticipated and met. Call light in reach. Will endorse accordingly for continuity of care.
--- NOTE | 2018-06-28 07:30 | NUR ---
RN NOTE RECEIVED PATIENT IN BED AWAKE WATCHING T.V. ALERT AND ORIENTED X 2-3 WITH EPISODES OF FORGETFULNESS. BREATHING EVEN AND UNLABORED WITH NO DISTRESS NOTED. ON CONTINUOUS O2 2L SATURATING WELL. ON BASKETBALL SCOUT SINUS TACH HR OF 109. PATIENT DENIES ANY PAIN AT THIS TIME. LEFT UPPER ARM MIDLINE IS INTACT AND PATENT WITH ONGOING FLUIDS ORDERED. ALL SAFETY MEASURES DONE. BED LOW AND LOCKED POSITION. PLACED CALL LIGHT IN REACH, WILL CONTINUE TO TURN AND REPOSITION PATIENT Q2H. WILL CONTINUE TO MONITOR.
[2018-06-28 08:00] VITALS: BP 113/65
[2018-06-28] MEDS: HYDROGEL DRESSING 90 GM TUBE TP SCH (08:15)
[2018-06-28] MEDS: CLOTRIMAZOLE 1% 15 GM TUBE TP SCH ×2 (08:15→17:00)
[2018-06-28] MEDS: PANTOPRAZOLE 40 MG VIAL IV SCH (10:47)
[2018-06-28 12:00] VITALS: BP 103/61
[2018-06-28] MEDS: ONDANSETRON HCL/PF 4 MG/2 ML VIAL IVP PRN (13:33)
[2018-06-28] MEDS: IV LR 1000 ML 1,000 ML IV PRN (13:37)
[2018-06-28 13:54] LABS: BASOPHILS % (AUTO) 0.3 % (0.0-2.0); HEMATOCRIT 29 % (33-45); HEMOGLOBIN 9.6 g/dL (11.5-14.8); MEAN CORPUSCULAR HEMOGLOBIN 29 PG (26.0-33.0); MEAN CORPUSCULAR HGB CONC 33 g/dl (31.0-36.0); MEAN CORPUSCULAR VOLUME 90 fL (82-100); MONOCYTES # (AUTO) 0.3 /CMM (0.1-1.30); MONOCYTES % (AUTO) 8.4 % (2.0-12.0); NEUTROPHILS # (AUTO) 2.6 /CMM (1.8-8.9); NEUTROPHILS % (AUTO) 65.3 % (43.0-81.0); PLATELET COUNT (AUTO) 197 /CMM (150-450); RDW COEFFICIENT OF VARIATION 15.6 (11.5-15.0); RED BLOOD CELL COUNT(AUTO) 3.26 MIL/uL (4.0-5.2)
[2018-06-28 14:04] LABS: CARBON DIOXIDE 28 mmol/L (21-32); CHLORIDE 95 mmol/L (98-107); CREATININE 0.4 mg/dL (0.6-1.3); GLUCOSE 136 mg/dL (74-106); SODIUM SERUM 131 mmol/L (136-145); UREA NITROGEN, BLOOD 2 mg/dL (7-18)
--- NOTE | 2018-06-28 14:10 | NUR ---
RN CHRIS ARTEAGA FROM LABORATORY CALLED TO NOTIFY PATIENT'S POTASSIUM LEVEL OF 2.6, BRYSON LOPEZ FEATHEREDGER AND REDUCER MACHINE NOTIFIED, AWAITING FOR FURTHER ORDERS
[2018-06-28 14:14] LABS: POTASSIUM 2.6 mmol/L (3.5-5.1)
[2018-06-28 14:44] LABS: PHOSPHORUS 2.4 mg/dL (2.5-4.9)
[2018-06-28 14:52] LABS: MAGNESIUM 1.1 mg/dL (1.8-2.4)
[2018-06-28] MEDS ORDERED: POTASSIUM CHLORIDE 20 MEQ POWDER PACKET PO ONE (15:30)
[2018-06-28] MEDS: Magnesium 1GM/D5W 100ML PREMIX 100 ML IV SCH ×2 (15:34→17:03)
[2018-06-28 16:00] VITALS: BP_SYST 104; BP_DIAS 60; BP_DIAS 69
[2018-06-28] MEDS ORDERED: NEUTRA PHOS 1 POWD.PACKET PO ONE (16:00)
[2018-06-28] MEDS: POTASSIUM CL. PREMIX PERIPHER. 50 ML IV SCH ×4 (16:28→19:31)
--- NOTE | 2018-06-28 19:21 | NUR ---
RN NOTE PATIENT REMAINED STABLE THROUGHOUT SHIFT. NO ACUTE DISTRESS OR CHANGES NOTED. WILL ENDORSE TO NEXT SHIFT TO CONTINUE TO MONITOR CONTINUITY OF CARE.
[2018-06-28 20:00] VITALS: BP_SYST 121; BP_SYST 122; BP_DIAS 59; BP_DIAS 71
--- NOTE | 2018-06-28 20:00 | NUR ---
RN NOTES Received patient in bed, pt is alert and oriented x4. Able to make needs known. Patient on 2 L of O2 via NC. ST, HR 100. RANJAN midline with IV fluid infusing . F/C intact and patent, draining via gravity. Pt c/o of pain 07/10 will give pain meds as ordered . Will turn pt Q2. Safety precautions taken. Bed in low locked position, call light with in reach. Will cont to monitor.
[2018-06-28] MEDS: LEVOFLOXACIN (500MG) 500 MG TABLET PO SCH (20:52)
[2018-06-29] VITALS (9 sets, daily range): BP systolic 112–142; BP diastolic 39–88
[2018-06-29] MEDS: METRONIDAZOLE 500 MG TABLET PO SCH ×4 (05:35→21:00)
[2018-06-29] MEDS: IV LR 1000 ML 1,000 ML IV PRN ×2 (05:43→22:24)
--- NOTE | 2018-06-29 06:59 | NUR ---
RN CLOSING NURSE No distress observed overnight. Pt ST HR 107 with inverted t waves. IVF as ordered. diet advanced as tolerated to soft. Pt turned and repositioned [id number] and PRN. Patient medicated as ordered . All needs anticipated and met. Call light in reach. Will endorse accordingly for continuity of care.
--- NOTE | 2018-06-29 07:15 | NUR ---
RUBBER AND POUNDER/OPENING NOTES RECEIVED PT. IN BED A&OX3. BREATHING UNLABORED, AND EVENLY ON OXYGEN AT 2L/MIN VIA NASAL CANNULA. NO S/S OF ACUTE DISTRESS. IV FLUIDS RUNNING AT 80ML/HR. COLOSTOMY HAS SMALL AMOUNT OF STOOL. PT.'S ABDOMINAL HANNAH ARE INTACT, CLEAN, DRY, AND COVERED WITH A SURGICAL DRESSING. NO S/S OF INFECTION. BED IS IN LOWEST, AND LOCKED POSITION. CALL LIGHT WITHIN REACH. ALL NEEDS MET. WILL CONTINUE TO ASSESS AND MONITOR.
[2018-06-29] MEDS: CLOTRIMAZOLE 1% 15 GM TUBE TP SCH ×2 (09:00→17:16)
[2018-06-29] MEDS: HYDROGEL DRESSING 90 GM TUBE TP SCH (09:26)
--- NOTE | 2018-06-29 09:28 | NUR ---
RN NOTES LOTRIM CREAM WAS NOT ADMINISTERED, CREAM WAS NOT AVAILABLE AT BEDSIDE, AND IN MEDICATION ROOM. WILL FOLLOW UP WITH PHARMACY TO FILL PRESCRIPTION.
[2018-06-29] MEDS: PANTOPRAZOLE 40 MG VIAL IV SCH (11:39)
--- NOTE | 2018-06-29 13:00 | NUR ---
UNABLE TO COMPLETE ADMINISTRATION OF FLAGYL ANTIBIOTIC PO DUE TO PT. HAVING NAUSEA AND EPISODE OF VOMITING AFTER LUNCH.
[2018-06-29] MEDS: ONDANSETRON HCL/PF 4 MG/2 ML VIAL IVP PRN (17:40)
--- NOTE | 2018-06-29 18:20 | NUR ---
RESPONDED TO RAPID RESPONSE. PER PRIMARY RN , PATIENT BECAME UNRESPONSIVE. UPON ARRIVAL, RESPONDING TO VERBAL STIMULI , OPENING EYES TO COMMAND. APPEARS SLEEPY, STATED SHE'S OKAY. SBP STABLE AT 130'S. NE 90'S. SPO2 100% ON 2 L N/C. NO ACUTE DISTRESS NOTED. RESPIRATIONS EVEN AND UNLABORED. INSTRUCTED TO MONITOR CLOSELY. NO FURTHER INTERVENTION NEEDED. PRIMARY MD NOTIFIED BODY BUILDER APPRENTICE, SOON.
--- NOTE | 2018-06-29 18:30 | NUR ---
RAPID RESPONSE WAS CALLED FOR PT. WHEN SHE BECAME UNRESPONSIVE WHILE EATING DINNER. PT. WAS SITTING UP EATING DINNER, WITH HELP. AFTER PT. FINISHED EATING SHE LOST CONSCIOUSNESS FOR A FEW SECONDS. PT.'S HEART MONITOR WAS READING AN UNSTABLE HEART RHYTHM AND ELEVATED PULSE. PT.'S VITAL SIGNS WERE 98F, 135/65, HR 120, RR 28, SPO2 84%, BLOOD SUGAR 102. PT. WAS SUCTIONED WITH 5CC OF FLUIDS WITH FOOD PARTICLES WAS REMOVED, O2 REBREATHER MASK WAS APPLIED,PT.'S NAME WAS CALLED LOUDLY A COUPLE OF TIMES, PAINFUL STIMULATION WAS APPLIED TO ARM AND CHEST, AND PT. WAS ABLE TO OPEN HER EYES, AND RESPOND TO HER NAME. PT. WAS ABLE TO ANSWER QUESTIONS, AND STATE THAT SHE WAS "OKAY". CHARGE NURSE, AND RAPID RESPONSE, ICU NURSE, AND NURSING POSTAGE MACHINE OPERATOR ARRIVED AFTER RAPID RESPONSE WAS CALLED. DR. MCFARLAND WAS CALLED FOR ORDERS. PER NEW ORDERS GIVEN FOR A CHEST X RAY, AND EKG. PT. STABILIZED A COUPLE OF SECONDS AFTER SHE LOST CONSCIOUSNESS AND VITALS WERE WNL, AND SPO2 100%. PT. IS ABLE TO OPEN EYES TO HER NAME, AND REPORTED HAVING SOME NAUSEA.
--- NOTE | 2018-06-29 19:40 | NUR ---
RN CHILD/OPENING NOTES RECEIVED PT IN BED SLEEPING BUT AROUSABLE TO VERBAL AND TACTILE STIMULI, BREATHING UNLABORED, AND EVENLY ON OXYGEN AT 2L/MIN VIA NASAL CANNULA WITH OPTIMAL SATURATION LEVEL, NO S/S OF ACUTE DISTRESS, IV FLUIDS RUNNING AT 80ML/HR, NOTED COLOSTOMY EMPTY AT THIS TIME, PT.'S ABDOMINAL HANNAH ARE INTACT, NO S/S OF INFECTION , DRAINAGE OR ABNORMALITY NOTED AT THIS TIME, COVERED WITH A SURGICAL DRESSING, BED LOCKED AND LOW POSITION. CALL LIGHT WITHIN REACH, DRY AND CLEAN AND WELL REPOSITIONED, ALL NEEDS MET. WILL CONTINUE MONITOR CLOSELY.
[2018-06-29] MEDS: LEVOFLOXACIN (500MG) 500 MG TABLET PO SCH ×2 (20:00→20:30)
--- NOTE | 2018-06-29 20:09 | NUR ---
DEVELOPER TRADING SYSTEMS/CLOSING NOTES PT. IS IN BED RESPONSIVE TO NAME, AND CAN FOLLOW INSTRUCTION. PT. IS BREATHING UNLABORED ON OXYGEN AT 2L/MIN WITH O2 SATURATION IS 100%. NO S/S OF ACUTE DISTRESS. IV FLUIDS RUNNING AT 80 ML/HR. TELE MONITOR READING SINUS RHYTHM 85 BPM. VITAL SIGNS ARE WNL. BED IS IN LOWEST, AND LOCKED POSITION. CALL LIGHT WITHIN REACH. ALL NEEDS MET. CHEST X RAY WAS PERFORMED, EKG ORDERED, AND ABG'S. WILL ENDORSE REPORT TO NURSE.
[2018-06-29 20:27] LABS: ABG BASE EXCESS 2.3 mmol/L; ABG OXYGEN SATURATION 97.5 % (92.0-98.5); ABG PCO2 36.1 mmHg (35.0-45.0); ABG PH 7.474 (7.350-7.450); COHb 0.3 % (0.5-1.5); MetHb 0.5 % (0.0-1.5); O2Hb 96.7 % (94.0-97.0); SITE, ABG Right Radial
--- NOTE | 2018-06-29 20:58 | NUR ---
DISCUSSED WITH DR. MCFARLAND ABOUT PT.'S CONDITION. NOTIFIED DOCTOR ABOUT PT.'S ABG, CHEST X RAY, AND EKG. NEW ORDERS GIVEN FOR A HOSPITALIST TO SEE PT. FOR AN EVALUATION POST RAPID RESPONSE, ORDER A CARDIO CONSULT IN THE MORNING TO R/O ATRIAL FIBRILLATION, AND A FLUTTER, LABS, TROPONIN 3X, AND CPKS, CBC, AND CMP. NEW ORDERS WERE INPUT WITH CHARGE NURSE.
--- NOTE | 2018-06-29 21:17 | NUR ---
PT. WAS SEEN AND EVALUATED BY HOSPITALIST, LISSA TAN NP.
[2018-06-29 21:39] LABS: BASOPHILS % (AUTO) 0.4 % (0.0-2.0); EOSINOPHILS % (AUTO) 0.3 % (0.0-6.0); HEMATOCRIT 30 % (33-45); HEMOGLOBIN 9.8 g/dL (11.5-14.8); LYMPHOCYTES # (AUTO) 1.1 /CMM (0.8-4.8); LYMPHOCYTES % (AUTO) 20.2 % (20.0-44.0); MEAN CORPUSCULAR HEMOGLOBIN 30 PG (26.0-33.0); MEAN CORPUSCULAR HGB CONC 32 g/dl (31.0-36.0); MEAN CORPUSCULAR VOLUME 92 fL (82-100); MONOCYTES # (AUTO) 0.5 /CMM (0.1-1.30); MONOCYTES % (AUTO) 8.1 % (2.0-12.0); PLATELET COUNT (AUTO) 190 /CMM (150-450); RDW COEFFICIENT OF VARIATION 16.2 (11.5-15.0); RED BLOOD CELL COUNT(AUTO) 3.31 MIL/uL (4.0-5.2); WHITE BLOOD COUNT (AUTO) 5.6 K/uL (4.3-11.0)
--- NOTE | 2018-06-29 21:40 | NUR ---
[address] on ACLS protocol, pt. arousable by painful stimuli, no signs of distress noted. VSS.
[2018-06-29 21:55] LABS: TROPONIN I 0.044 ng/mL (0.00-0.056)
--- NOTE | 2018-06-29 22:00 | NUR ---
NEUROPSYCHOLOGIST NOTES, PATIENT UNABLE TO TAKE MEDICATION AT THIS TIME, NOT ENOUGH ALERT TO SWALLOW.
--- NOTE | 2018-06-29 22:00 | NUR ---
2200 back in the room from CT, connected pt. to bedside monitor, remains responsive to pain, hob elevated for aspiration precaution and maximum oxygenation
[2018-06-29 22:03] LABS: CARBON DIOXIDE 23 mmol/L (21-32); CHLORIDE 96 mmol/L (98-107); CREATININE 0.3 mg/dL (0.6-1.3); GLUCOSE 100 mg/dL (74-106); POTASSIUM 3.6 mmol/L (3.5-5.1); SODIUM SERUM 129 mmol/L (136-145); UREA NITROGEN, BLOOD 0 mg/dL (7-18)
[2018-06-29 22:14] LABS: ALANINE AMINOTRANSFERASE < 6 U/L (12-78); ALBUMIN 1.5 g/dL (3.4-5.0); ALKALINE PHOSPHATASE 77 U/L (46-116); ASPARTATE AMINOTRANSFERASE 22 U/L (15-37); BILIRUBIN,TOTAL 0.7 mg/dL (0.2-1.0); MAGNESIUM 1.5 mg/dL (1.8-2.4); PHOSPHORUS 2.3 mg/dL (2.5-4.9); TOTAL PROTEIN, SERUM 4.5 g/dL (6.4-8.2)
[2018-06-29 22:34] LABS: CREATINE KINASE MB 6.5 ng/mL (0-3.6); CREATINE KINASE, TOTAL 62 U/L (26-192)
[2018-06-30] VITALS (7 sets, daily range): BP systolic 106–156; BP diastolic 42–87
[2018-06-30] MEDS: METRONIDAZOLE 500 MG TABLET PO SCH ×3 (06:09→21:00)
--- NOTE | 2018-06-30 06:32 | NUR ---
TUCK POINTER HELPER CLOSING NOTES PATIENT IN BED SLEEPING BUT AROUSABLE TO VERBAL AND TACTILE STIMULI, BREATHING UNLABORED, AND EVENLY ON OXYGEN AT 2L/MIN VIA NASAL CANNULA WITH OPTIMAL SATURATION LEVEL, NO S/S OF ACUTE DISTRESS, IV FLUIDS RUNNING AT 80ML/HR, NOTED COLOSTOMY WITH SMALL AMOUNT OF STOOL, F/C DRAINING BY GRAVITY YELLOW COLOR URINE, PATENCY INTACT, DRY AND CLEAN AND WELL REPOSITIONED, ALL NEEDS MET, CALL LIGHT WITHIN REACH, STABLE DURING THE NIGHT, WILL ENDORSE CONTINUITY OF CARE TO ONCOMING NURSE.
[2018-06-30 06:50] LABS: BASOPHILS % (AUTO) 0.3 % (0.0-2.0); EOSINOPHILS % (AUTO) 0.6 % (0.0-6.0); HEMATOCRIT 29 % (33-45); HEMOGLOBIN 9.4 g/dL (11.5-14.8); LYMPHOCYTES # (AUTO) 1.1 /CMM (0.8-4.8); LYMPHOCYTES % (AUTO) 26.2 % (20.0-44.0); MEAN CORPUSCULAR HEMOGLOBIN 30 PG (26.0-33.0); MEAN CORPUSCULAR HGB CONC 33 g/dl (31.0-36.0); MEAN CORPUSCULAR VOLUME 91 fL (82-100); MONOCYTES # (AUTO) 0.4 /CMM (0.1-1.30); MONOCYTES % (AUTO) 9.9 % (2.0-12.0); NEUTROPHILS # (AUTO) 2.6 /CMM (1.8-8.9); PLATELET COUNT (AUTO) 157 /CMM (150-450); RED BLOOD CELL COUNT(AUTO) 3.18 MIL/uL (4.0-5.2); WHITE BLOOD COUNT (AUTO) 4.2 K/uL (4.3-11.0)
[2018-06-30 07:18] LABS: ALANINE AMINOTRANSFERASE 6 U/L (12-78); ALBUMIN 1.6 g/dL (3.4-5.0); ALKALINE PHOSPHATASE 68 U/L (46-116); ASPARTATE AMINOTRANSFERASE 21 U/L (15-37); BILIRUBIN,TOTAL 0.6 mg/dL (0.2-1.0); CALCIUM, SERUM 6.9 mg/dL (8.5-10.1); CARBON DIOXIDE 27 mmol/L (21-32); CHLORIDE 97 mmol/L (98-107); CREATININE 0.3 mg/dL (0.6-1.3); GLUCOSE 84 mg/dL (74-106); SODIUM SERUM 134 mmol/L (136-145); TOTAL PROTEIN, SERUM 4.1 g/dL (6.4-8.2); UREA NITROGEN, BLOOD 1 mg/dL (7-18)
--- NOTE | 2018-06-30 07:30 | NUR ---
POSITION CLASSIFICATION SPECIALIST OPENING NOTES: RECEIVED BEDSIDE REPORT FROM PM NURSE. PT ON BED SLEEPING, NO ACUTE DISTRESS, NO SOB NOTED AT THIS TIME. BREATHING EVEN AND UNLABORED WITH NORMAL RESPIRATIONS. COLOSTOMY INTACT. CAZARES CATH INTACT AND PATENT WITH CLEAR YELLOW URINE DRAINING ON GRAVITY. ON TELE MONITOR WITH SR 94.L UPPER ARM MIDLINE WITH LR @80CC/HR. ALL SAFETY MEASURES ARE IMPLEMENTED, BED IN LOW, LOCKED POSITION, CALL LIGHT PLACED WITHIN REACH. WILL CONTINUE TO MONITOR P
[2018-06-30] MEDS: CLOTRIMAZOLE 1% 15 GM TUBE TP SCH ×2 (08:10→17:00)
[2018-06-30] MEDS: HYDROGEL DRESSING 90 GM TUBE TP SCH (08:11)
[2018-06-30] MEDS: MORPHINE SULFATE INJ 2 MG/ML DISP.SYRIN IV PRN ×3 (08:52→15:28)
[2018-06-30] MEDS: PANTOPRAZOLE 40 MG VIAL IV SCH (12:36)
[2018-06-30] MEDS: POTASSIUM CHLORIDE 20 MEQ POWDER PACKET PO SCH ×3 (12:36→15:22)
[2018-06-30] MEDS: IV LR 1000 ML 1,000 ML IV PRN (12:43)
--- NOTE | 2018-06-30 15:03 | NUR ---
TRANSMISSION MAINTENANCE SUPERVISOR NOTES SEEN BY MADE AWARE ABOUT ALL THE LABS AND DIETARY RECOMMENDATION FOR LOW ALBUMIN.ALSO MADE AWARE PATIENT IS TACHYCARDIC AND NOTIFIED THAT PATIENT HAS EDEMA ON L UPPER AND LOWER ARM, BILATERAL LOWER FOOT AND GENITAL AREA.PATIENT IS THIRD SPACING THE FLUID.GOT NEW ORDERS.CONTINUE TO MONITOR TACHY.
[2018-06-30] MEDS: ONDANSETRON HCL/PF 4 MG/2 ML VIAL IVP PRN (15:32)
[2018-06-30] MEDS: ALBUMIN 25% 25 GM in PREMIX 1 EA IV SCH (15:59)
--- NOTE | 2018-06-30 16:00 | NUR ---
HEALTH CARE FACILITY ADMINISTRATOR NOTES NO SOB NO DISTRESS NOTED AT THIS TIME.BACK TO HR OF 118.WILL CONTINUE TO MONITOR.
[2018-06-30] MEDS: HYDROMORPHONE INJ 2 MG/ML DISP.SYRIN IV PRN (16:59)
--- NOTE | 2018-06-30 17:41 | NUR ---
PAPER AND PRINTS RESTORER NOTES PATIENT NOTED WITH TACHYCARDIA OF 140S,DR ALMONTE MADE AWARE.STAT EKG DONE [id number].RELAYED RESULT TO AND REQUESTED FOR CARDIOLOGY CONSULTATION.GOT NEW ORDERS. MADE AWARE ABOUT THE CONSULTATION ORDER AND RELAYED EKG RESULT HE TOLD HE WILL SEE THE PATIENT.LEFT ARM ULTRASOUND DONE NO DVT.ALBUMIN GIVEN ORDERED.PATIENT STARTED ON ENSURE TID.
[2018-06-30] MEDS: ENSURE ENLIVE 237 ML LIQUID (VANILLA) PO SCH (17:57)
--- NOTE | 2018-06-30 19:19 | NUR ---
PATTERN FITTER SHIFT END NOTES: PT ON BED AWAKE, NO ACUTE DISTRESS, NO SOB NOTED AT THIS TIME. BREATHING EVEN AND UNLABORED WITH NORMAL RESPIRATIONS. COLOSTOMY INTACT. CAZARES CATH INTACT AND PATENT WITH CLEAR YELLOW URINE DRAINING ON GRAVITY. ON TELE MONITOR WITH SR 98.L UPPER ARM MIDLINE .SEEN BY MADE AWARE ABOUT TACHYCARDIC EPISODE AND EDEMA AND HER LABS. 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 ENDORSED TO PM NURSE FOR ALETHEA.MADE AWARE TO FOLLOW UP WITH ECHO RESULT.
[2018-06-30] MEDS: Magnesium 1GM/D5W 100ML PREMIX 100 ML IV SCH ×2 (19:52→20:40)
[2018-06-30] MEDS: METOPROLOL TARTRATE 25 MG TABLET PO SCH (21:00)
[2018-06-30] MEDS: LEVOFLOXACIN (500MG) 500 MG TABLET PO SCH (21:00)
[2018-06-30] MEDS: HYDROCODONE/APAP 5/325MG 1 EACH TABLET PO PRN (21:01)
[2018-07-01] VITALS: BP_SYST 168; BP_SYST 180; BP_DIAS 79; BP_DIAS 88
[2018-07-01 04:00] VITALS: BP_SYST 107; BP_SYST 180; BP_DIAS 27; BP_DIAS 88
[2018-07-01] MEDS: MORPHINE SULFATE INJ 2 MG/ML DISP.SYRIN IV PRN (04:06)
[2018-07-01] MEDS: ALBUMIN 25% 25 GM in PREMIX 1 EA IV SCH (04:06)
[2018-07-01] MEDS: ONDANSETRON HCL/PF 4 MG/2 ML VIAL IVP PRN ×2 (04:06→12:17)
[2018-07-01] MEDS: METRONIDAZOLE 500 MG TABLET PO SCH ×3 (05:46→20:55)
[2018-07-01 07:07] LABS: EOSINOPHILS % (AUTO) 1.7 % (0.0-6.0); HEMATOCRIT 25 % (33-45); HEMOGLOBIN 8.1 g/dL (11.5-14.8); LYMPHOCYTES # (AUTO) 0.9 /CMM (0.8-4.8); LYMPHOCYTES % (AUTO) 28.9 % (20.0-44.0); MEAN CORPUSCULAR HEMOGLOBIN 30 PG (26.0-33.0); MEAN CORPUSCULAR HGB CONC 33 g/dl (31.0-36.0); MEAN CORPUSCULAR VOLUME 90 fL (82-100); MONOCYTES # (AUTO) 0.3 /CMM (0.1-1.30); MONOCYTES % (AUTO) 8.3 % (2.0-12.0); NEUTROPHILS # (AUTO) 1.9 /CMM (1.8-8.9); NEUTROPHILS % (AUTO) 61.1 % (43.0-81.0); PLATELET COUNT (AUTO) 127 /CMM (150-450); RED BLOOD CELL COUNT(AUTO) 2.71 MIL/uL (4.0-5.2); WHITE BLOOD COUNT (AUTO) 3.1 K/uL (4.3-11.0)
--- NOTE | 2018-07-01 07:15 | NUR ---
INSTRUCTIONAL DESIGNER INITIAL NOTES RECEIVED REPORT AND PATIENT FROM PM NURSE RESTING IN BED WITH NO ACUTE DISTRESS OR SOB, ON 3L NC SAT ABOVE 85% A&O X3 TURKMEN AND ERITREAN SPEAKING, ON TELE MON SINUS RHTYME WITH HEART RATE 87 WITH BBB, CAZARES CATH DRAINING URINE VIA GRAVITY, SWALLOW PRECAUTION AND ASPIRATION PRECAUTION INITIATED, RIGHT UPPER MIDLINE SALINE LOCKED NO INFILTRATION OR REDNESS NOTED. ALL SAFETY MEASURES INITIATRED, HOB ELEVATED AT ALL TIMES. WILL CONTINUE TO MONITOR.
[2018-07-01 07:24] LABS: ALBUMIN 3.1 g/dL (3.4-5.0); CALCIUM, SERUM 7.6 mg/dL (8.5-10.1); CARBON DIOXIDE 31 mmol/L (21-32); CHLORIDE 98 mmol/L (98-107); CREATININE 0.3 mg/dL (0.6-1.3); GLUCOSE 100 mg/dL (74-106); MAGNESIUM 1.9 mg/dL (1.8-2.4); PHOSPHORUS 2.2 mg/dL (2.5-4.9); POTASSIUM 3.4 mmol/L (3.5-5.1); SODIUM SERUM 135 mmol/L (136-145); UREA NITROGEN, BLOOD 1 mg/dL (7-18)
[2018-07-01 07:32] LABS: THYROID STIMULATING HORMONE 2.558 uIU/mL (0.358-3.74)
[2018-07-01 08:00] VITALS: BP 138/83
--- NOTE | 2018-07-01 08:00 | NUR ---
BULL RIDER NOTES PATIENT STATES HARD OF BREATHING, PLACED PATIENT ON 15L NON REBREATHER PATEINT STATED FEELS BETTER, CALLED RT AND CAME TO CHECK O2 SATURATION AND 100% ON NASAL CANULA 4LITERS, WILL CONTINUE TO MONITOR PT STABLE AT THIS TIME.
[2018-07-01] MEDS: ENSURE ENLIVE 237 ML LIQUID (VANILLA) PO SCH ×3 (08:28→16:47)
[2018-07-01] MEDS: CLOTRIMAZOLE 1% 15 GM TUBE TP SCH ×2 (08:57→16:47)
[2018-07-01] MEDS: METOPROLOL TARTRATE 25 MG TABLET PO SCH ×2 (08:59→20:55)
[2018-07-01] MEDS: HYDROGEL DRESSING 90 GM TUBE TP SCH (09:00)
[2018-07-01] MEDS ORDERED: POTASSIUM CHLORIDE 20 MEQ POWDER PACKET PO ONE (09:30)
[2018-07-01] MEDS: PANTOPRAZOLE 40 MG VIAL IV SCH (10:47)
[2018-07-01] MEDS: ACETAMINOPHEN 325 MG TABLET PO PRN (11:56)
[2018-07-01 12:00] VITALS: BP 118/73
[2018-07-01] MEDS ORDERED: NEUTRA PHOS 1 POWD.PACKET PO ONE (14:30)
[2018-07-01 16:00] VITALS: BP_SYST 111; BP_SYST 118; BP_DIAS 70; BP_DIAS 73
--- NOTE | 2018-07-01 18:25 | NUR ---
VEHICLE AND EQUIPMENT CLEANER ENDING NOTES PT STABLE WITH NO ACUTE CHANGES NOTED. ALL NEEDS MET, PT STABLE O2 SAT ABOVE 88%, NO SOB AT THIS TIME, BED BATH PROVIDED WITH WOUND TX, WILL ENDORSE TO PM NURSE.
[2018-07-01] MEDS: FOLIC ACID 1 MG TABLET PO SCH (19:45)
[2018-07-01 20:00] VITALS: BP 154/82
[2018-07-01] MEDS: LEVOFLOXACIN (500MG) 500 MG TABLET PO SCH (20:54)
[2018-07-01] MEDS: HYDROCODONE/APAP 5/325MG 1 EACH TABLET PO PRN (22:10)
[2018-07-02] VITALS: BP 125/71
[2018-07-02 04:00] VITALS: BP 144/83
[2018-07-02] MEDS: METRONIDAZOLE 500 MG TABLET PO SCH ×3 (05:37→21:20)
[2018-07-02] MEDS: HYDROCODONE/APAP 5/325MG 1 EACH TABLET PO PRN ×2 (05:37→21:19)
[2018-07-02 07:10] LABS: BASOPHILS % (AUTO) 0.2 % (0.0-2.0); EOSINOPHILS % (AUTO) 1.2 % (0.0-6.0); HEMATOCRIT 24 % (33-45); HEMOGLOBIN 7.9 g/dL (11.5-14.8); LYMPHOCYTES # (AUTO) 1.3 /CMM (0.8-4.8); LYMPHOCYTES % (AUTO) 35.6 % (20.0-44.0); MEAN CORPUSCULAR HEMOGLOBIN 30 PG (26.0-33.0); MEAN CORPUSCULAR HGB CONC 33 g/dl (31.0-36.0); MEAN CORPUSCULAR VOLUME 90 fL (82-100); MONOCYTES # (AUTO) 0.2 /CMM (0.1-1.30); MONOCYTES % (AUTO) 5.6 % (2.0-12.0); NEUTROPHILS % (AUTO) 57.4 % (43.0-81.0); PLATELET COUNT (AUTO) 140 /CMM (150-450); RDW COEFFICIENT OF VARIATION 15.8 (11.5-15.0); RED BLOOD CELL COUNT(AUTO) 2.69 MIL/uL (4.0-5.2); WHITE BLOOD COUNT (AUTO) 3.6 K/uL (4.3-11.0)
[2018-07-02 07:38] LABS: CALCIUM, SERUM 7.4 mg/dL (8.5-10.1); CARBON DIOXIDE 30 mmol/L (21-32); CHLORIDE 97 mmol/L (98-107); CREATININE 0.3 mg/dL (0.6-1.3); GLUCOSE 95 mg/dL (74-106); PHOSPHORUS 2.2 mg/dL (2.5-4.9); POTASSIUM 4.1 mmol/L (3.5-5.1); SODIUM SERUM 133 mmol/L (136-145); UREA NITROGEN, BLOOD 1 mg/dL (7-18)
[2018-07-02 08:00] VITALS: BP 125/68
--- NOTE | 2018-07-02 08:00 | NUR ---
WILLY RN NOTES: RECEIVED BEDSIDE REPORT FROM AM NURSE. PT ON BED AWAKE, A/OX2-3 WITH EPISODES OF CONFUSION, NO ACUTE DISTRESS, NO SOB NOTED AT THIS TIME. PT IS SR ON INSTRUCTIONAL SYSTEMS SPECIALIST WITH HR OF 77. PATIENT COMPLAINTS OF PAIN 2/10 AT THIS TIME BUT SHE VOICED THAT SHE IS TOLERATING THAT LEVEL OF PAIN . BREATHING EVEN AND UNLABORED WITH NORMAL RESPIRATIONS. COLOSTOMY INTACT. CAZARES CATH INTACT AND PATENT WITH CLEAR YELLOW URINE DRAINING ON GRAVITY. RIGHT UPPER ARM MIDLINE G18 SL IS PATIENT, INTACT. ALL SAFETY MEASURES ARE IMPLEMENTED, BED IN LOW, LOCKED POSITION, CALL LIGHT PLACED WITHIN REACH. WILL CONTINUE TO MONITOR PT.
[2018-07-02 08:09] LABS: IMMUNOGLOBULIN A, SERUM 210 mg/dL (64-422); IMMUNOGLOBULIN G, SERUM 540 mg/dL (700-1600); IMMUNOGLOBULIN M, SERUM 59 mg/dL (26-217)
[2018-07-02] MEDS: ONDANSETRON HCL/PF 4 MG/2 ML VIAL IVP PRN ×2 (08:45→23:19)
[2018-07-02] MEDS: METOPROLOL TARTRATE 25 MG TABLET PO SCH ×2 (08:54→21:20)
[2018-07-02] MEDS: FOLIC ACID 1 MG TABLET PO SCH (08:54)
[2018-07-02] MEDS: CLOTRIMAZOLE 1% 15 GM TUBE TP SCH ×2 (09:00→18:39)
[2018-07-02] MEDS: HYDROGEL DRESSING 90 GM TUBE TP PRN ×3 (09:00→09:03)
[2018-07-02] MEDS: ENSURE ENLIVE 237 ML LIQUID (VANILLA) PO SCH ×3 (09:01→18:59)
[2018-07-02] MEDS: HYDROGEL DRESSING 90 GM TUBE TP SCH (09:05)
[2018-07-02] MEDS ORDERED: NEUTRA PHOS 1 POWD.PACKET PO ONE (11:00)
[2018-07-02 12:00] VITALS: BP 116/67
[2018-07-02] MEDS: PANTOPRAZOLE 40 MG VIAL IV SCH (12:45)
[2018-07-02 14:16] LABS: *SPE A/G RATIO 2.2 (0.7-1.7); *SPE ALBUMIN 3.3 g/dL (2.9-4.4); *SPE ALPHA-1-GLOBULIN 0.2 g/dL (0.0-0.4); *SPE ALPHA-2-GLOBULIN 0.3 g/dL (0.4-1.0); *SPE BETA GLOBULIN 0.5 g/dL (0.7-1.3); *SPE GLOBULIN, TOTAL 1.5 g/dL (2.2-3.9); *SPE M-SPIKE Not Observed g/dL (Not Observed); *SPEGAMMA GLOBULIN 0.5 g/dL (0.4-1.8)
[2018-07-02 16:00] VITALS: BP 131/75
[2018-07-02 20:00] VITALS: BP 174/76
[2018-07-03] VITALS: BP 160/87
[2018-07-03 04:00] VITALS: BP 159/89
[2018-07-03] MEDS: METRONIDAZOLE 500 MG TABLET PO SCH ×3 (05:19→21:27)
[2018-07-03 07:06] LABS: BASOPHILS % (AUTO) 0.3 % (0.0-2.0); EOSINOPHILS % (AUTO) 0.4 % (0.0-6.0); HEMATOCRIT 26 % (33-45); HEMOGLOBIN 8.6 g/dL (11.5-14.8); LYMPHOCYTES # (AUTO) 1.6 /CMM (0.8-4.8); LYMPHOCYTES % (AUTO) 29.4 % (20.0-44.0); MEAN CORPUSCULAR HEMOGLOBIN 30 PG (26.0-33.0); MEAN CORPUSCULAR HGB CONC 33 g/dl (31.0-36.0); MEAN CORPUSCULAR VOLUME 91 fL (82-100); MONOCYTES # (AUTO) 0.2 /CMM (0.1-1.30); MONOCYTES % (AUTO) 4.5 % (2.0-12.0); NEUTROPHILS # (AUTO) 3.5 /CMM (1.8-8.9); NEUTROPHILS % (AUTO) 65.4 % (43.0-81.0); PLATELET COUNT (AUTO) 156 /CMM (150-450); RDW COEFFICIENT OF VARIATION 15.6 (11.5-15.0); WHITE BLOOD COUNT (AUTO) 5.3 K/uL (4.3-11.0)
[2018-07-03 07:38] LABS: CALCIUM, SERUM 7.9 mg/dL (8.5-10.1); CARBON DIOXIDE 29 mmol/L (21-32); CHLORIDE 96 mmol/L (98-107); CREATININE 0.4 mg/dL (0.6-1.3); GLUCOSE 109 mg/dL (74-106); PHOSPHORUS 2.4 mg/dL (2.5-4.9); POTASSIUM 3.5 mmol/L (3.5-5.1); SODIUM SERUM 131 mmol/L (136-145); UREA NITROGEN, BLOOD 2 mg/dL (7-18)
[2018-07-03 08:00] VITALS: BP 142/71
[2018-07-03] MEDS: CLOTRIMAZOLE 1% 15 GM TUBE TP SCH ×2 (09:09→16:19)
[2018-07-03] MEDS: METOPROLOL TARTRATE 25 MG TABLET PO SCH ×2 (09:10→21:29)
[2018-07-03] MEDS: ENSURE ENLIVE 237 ML LIQUID (VANILLA) PO SCH ×3 (09:10→16:19)
[2018-07-03] MEDS: FOLIC ACID 1 MG TABLET PO SCH (09:10)
[2018-07-03] MEDS: HYDROGEL DRESSING 90 GM TUBE TP SCH (10:18)
[2018-07-03] MEDS: ONDANSETRON HCL/PF 4 MG/2 ML VIAL IVP PRN (10:18)
[2018-07-03 12:00] VITALS: BP 125/71
[2018-07-03] MEDS: PANTOPRAZOLE 40 MG VIAL IV SCH (12:08)
[2018-07-03] MEDS ORDERED: NEUTRA PHOS 1 POWD.PACKET PO ONE (14:00)
[2018-07-03 16:00] VITALS: BP 134/56
[2018-07-03] MEDS: HYDROCODONE/APAP 5/325MG 1 EACH TABLET PO PRN (17:06)
--- NOTE | 2018-07-03 17:08 | NUR ---
HR NOTED TO BE 116, SR ON TELE MONITOR. PATIENT STATES THAT SHE IS IN PAIN. PATIENT REPOSITIONED, PATIENT EXPRESSED "NORCO OK." NORCO ADMINISTERED PER ORDERS. SEE EMAR
--- NOTE | 2018-07-03 19:30 | NUR ---
RN/TELE NOTES: RECEIVED PT. IN BED W/ HOB ELEVATED. NO FACIAL GRIMACES OR MOANING NOTED. ON TELE MONITOR W/ ST 112 W/ PAC. HAS RANJAN MIDLINE W/ NO S/S OF INFECTION/INFILTRATION NOTED. W/ F/C IN PLACE DRAINING TO CLEAR YELLOW URINE. TOOK ALL MEEDS. WILL CONTINUE TO MONITOR.
--- NOTE | 2018-07-03 19:32 | NUR ---
RN NOTS: PATIENT RESTING IN BED. NONLABORED BREATHING NOTED ON 2 L NASAL CANNULA. NO FACIAL GRIMACING NOTED. PATIENT SINUS TACHYCARDIA 112 HR. PATIENT AOX2-3, AROUSABLE TO NAME AND TOUCH. RIGHT UPPER ARM MIDLINE PATENT AND INTACT. DENYING CHEST PAIN, DENYING SOB, AND DENYING DIZZINESS WOUND CARE AND COLOSTOMY CARE DONE. PATIENT TURNED AND REPOSITIONED EVERY 2 HOURS PATIENT ENCOURAGED TO INCREASE PO INTAKE FOR MEALS NO SEIZURES NOTED DURING SHIFT ASPIRATION PRECAUTIONS IMPLEMENTED
--- NOTE | 2018-07-03 19:32 | NUR ---
ENDORSED TO NEXT RN
[2018-07-03 20:00] VITALS: BP_SYST 105; BP_SYST 150; BP_DIAS 42; BP_DIAS 63
[2018-07-04] VITALS: BP 110/75
[2018-07-04 04:00] VITALS: BP 115/69
[2018-07-04] MEDS: METRONIDAZOLE 500 MG TABLET PO SCH ×3 (06:16→22:07)
[2018-07-04 06:39] LABS: CALCIUM, SERUM 7.7 mg/dL (8.5-10.1); CARBON DIOXIDE 30 mmol/L (21-32); CHLORIDE 97 mmol/L (98-107); CREATININE 0.3 mg/dL (0.6-1.3); GLUCOSE 102 mg/dL (74-106); PHOSPHORUS 2.8 mg/dL (2.5-4.9); POTASSIUM 3.3 mmol/L (3.5-5.1); SODIUM SERUM 132 mmol/L (136-145); UREA NITROGEN, BLOOD 4 mg/dL (7-18)
--- NOTE | 2018-07-04 07:25 | NUR ---
RN/TELE NOTES: REPORT GIVEN TO AM NURSE FOR ALETHEA.
--- NOTE | 2018-07-04 07:45 | NUR ---
RN NOTE RECEIVED PATIENT IN BED AWAKE WATCHING T.V. ALERT AND ORIENTED X 2-3 WITH EPISODES OF FORGETFULNESS. BREATHING EVEN AND UNLABORED WITH NO DISTRESS NOTED. ON CONTINUOUS O2 3L SATURATING WELL. ON ENGINEERING SPECIALIST TECHNICIAN SINUS TACH HR OF 111. PATIENT DENIES ANY PAIN AT THIS TIME. RIGHT UPPER ARM MIDLINE IS INTACT AND PATENT WITH ONGOING FLUIDS ORDERED. ALL SAFETY MEASURES DONE. BED LOW AND LOCKED POSITION. PLACED CALL LIGHT IN REACH, WILL CONTINUE TO TURN AND REPOSITION PATIENT Q2H. WILL CONTINUE TO MONITOR.
[2018-07-04 08:00] VITALS: BP 122/77
[2018-07-04] MEDS: ENSURE ENLIVE 237 ML LIQUID (VANILLA) PO SCH ×3 (08:18→16:19)
[2018-07-04] MEDS: FOLIC ACID 1 MG TABLET PO SCH (08:18)
[2018-07-04] MEDS: METOPROLOL TARTRATE 25 MG TABLET PO SCH ×2 (08:18→22:07)
[2018-07-04] MEDS: HYDROGEL DRESSING 90 GM TUBE TP SCH (08:19)
[2018-07-04] MEDS: CLOTRIMAZOLE 1% 15 GM TUBE TP SCH ×2 (08:19→16:19)
[2018-07-04] MEDS ORDERED: POTASSIUM CHLORIDE 20 MEQ TAB.PRT.SR PO ONE (10:00)
[2018-07-04] MEDS: PANTOPRAZOLE 40 MG VIAL IV SCH (11:31)
[2018-07-04 12:00] VITALS: BP 115/68
[2018-07-04] MEDS ORDERED: PROMETHAZINE HCL SYRUP 6.25 MG/5 ML UDC PO PRN (12:00)
[2018-07-04 16:00] VITALS: BP 102/63
--- NOTE | 2018-07-04 19:12 | NUR ---
RN NOTE PATIENT REMAINED STABLE THROUGHOUT SHIFT. NO ACUTE CHANGES OR DISTRESS NOTED. WILL ENDORSE TO NEXT SHIFT TO CONTINUE CONTINUITY OF CARE.
[2018-07-04 20:00] VITALS: BP 121/71
[2018-07-05] VITALS (7 sets, daily range): BP systolic 104–138; BP diastolic 69–100
[2018-07-05] MEDS: METRONIDAZOLE 500 MG TABLET PO SCH ×3 (07:06→20:56)
[2018-07-05 07:34] LABS: BASOPHILS % (AUTO) 0.3 % (0.0-2.0); EOSINOPHILS % (AUTO) 1.1 % (0.0-6.0); HEMATOCRIT 23 % (33-45); HEMOGLOBIN 7.4 g/dL (11.5-14.8); LYMPHOCYTES # (AUTO) 1.5 /CMM (0.8-4.8); MEAN CORPUSCULAR HEMOGLOBIN 29 PG (26.0-33.0); MEAN CORPUSCULAR HGB CONC 32 g/dl (31.0-36.0); MEAN CORPUSCULAR VOLUME 91 fL (82-100); MONOCYTES # (AUTO) 0.4 /CMM (0.1-1.30); NEUTROPHILS # (AUTO) 3.6 /CMM (1.8-8.9); NEUTROPHILS % (AUTO) 63.6 % (43.0-81.0); PLATELET COUNT (AUTO) 182 /CMM (150-450); RED BLOOD CELL COUNT(AUTO) 2.52 MIL/uL (4.0-5.2); WHITE BLOOD COUNT (AUTO) 5.6 K/uL (4.3-11.0)
--- NOTE | 2018-07-05 07:35 | NUR ---
RN NOTE RECEIVED PATIENT IN BED AWAKE WATCHING T.V. ALERT AND ORIENTED X 2-3 WITH EPISODES OF FORGETFULNESS. BREATHING EVEN AND UNLABORED WITH NO DISTRESS NOTED. ON CONTINUOUS O2 3L SATURATING WELL. ON MILK TESTER SINUS TACH HR OF 100. PATIENT DENIES ANY PAIN AT THIS TIME. RIGHT UPPER ARM MIDLINE IS INTACT AND PATENT. ALL SAFETY MEASURES DONE. BED LOW AND LOCKED POSITION. PLACED CALL LIGHT IN REACH, WILL CONTINUE TO TURN AND REPOSITION PATIENT Q2H. WILL CONTINUE TO MONITOR.
[2018-07-05 07:52] LABS: CALCIUM, SERUM 7.9 mg/dL (8.5-10.1); CARBON DIOXIDE 27 mmol/L (21-32); CHLORIDE 96 mmol/L (98-107); CREATININE 0.4 mg/dL (0.6-1.3); GLUCOSE 95 mg/dL (74-106); POTASSIUM 3.5 mmol/L (3.5-5.1); SODIUM SERUM 131 mmol/L (136-145); UREA NITROGEN, BLOOD 4 mg/dL (7-18)
--- NOTE | 2018-07-05 07:52 | NUR ---
TELE/ RN NOTES: REPORT GIVEN TO AM NURSE FOR ALETHEA.
[2018-07-05 08:00] LABS: IRON, SERUM 25 ug/dl (50-175); TOTAL IRON BINDING CAPACITY 42 ug/dl (250-450)
[2018-07-05 08:08] LABS: FERRITIN 865 ng/mL (8-388)
[2018-07-05] MEDS: ENSURE ENLIVE 237 ML LIQUID (VANILLA) PO SCH ×3 (08:14→16:28)
[2018-07-05] MEDS: FOLIC ACID 1 MG TABLET PO SCH (08:14)
[2018-07-05] MEDS: METOPROLOL TARTRATE 25 MG TABLET PO SCH ×2 (08:15→20:57)
[2018-07-05] MEDS: HYDROGEL DRESSING 90 GM TUBE TP SCH (08:16)
[2018-07-05] MEDS: CLOTRIMAZOLE 1% 15 GM TUBE TP SCH ×2 (08:17→16:29)
[2018-07-05] MEDS: PANTOPRAZOLE 40 MG VIAL IV SCH (11:29)
[2018-07-05] MEDS: MORPHINE SULFATE INJ 2 MG/ML DISP.SYRIN IV PRN ×2 (11:40→12:46)
[2018-07-05 18:37] LABS: BASOPHILS % (AUTO) 0.1 % (0.0-2.0); EOSINOPHILS % (AUTO) 0.6 % (0.0-6.0); HEMATOCRIT 26 % (33-45); HEMOGLOBIN 8.1 g/dL (11.5-14.8); LYMPHOCYTES # (AUTO) 1.5 /CMM (0.8-4.8); LYMPHOCYTES % (AUTO) 20.2 % (20.0-44.0); MEAN CORPUSCULAR HEMOGLOBIN 29 PG (26.0-33.0); MEAN CORPUSCULAR HGB CONC 32 g/dl (31.0-36.0); MEAN CORPUSCULAR VOLUME 91 fL (82-100); MONOCYTES # (AUTO) 0.6 /CMM (0.1-1.30); MONOCYTES % (AUTO) 8.7 % (2.0-12.0); NEUTROPHILS # (AUTO) 5.1 /CMM (1.8-8.9); NEUTROPHILS % (AUTO) 70.4 % (43.0-81.0); PLATELET COUNT (AUTO) 212 /CMM (150-450); RDW COEFFICIENT OF VARIATION 16.2 (11.5-15.0); RED BLOOD CELL COUNT(AUTO) 2.81 MIL/uL (4.0-5.2); WHITE BLOOD COUNT (AUTO) 7.3 K/uL (4.3-11.0)
--- NOTE | 2018-07-05 19:21 | NUR ---
RN NOTE PATIENT REMAINED STABLE THROUGHOUT THE SHIFT. NO ACUTE CHANGES OR DISTRESS NOTED. WILL ENDORSE TO NEXT SHIFT TO CONTINUE CONTINUITY OF CARE.
[2018-07-06] VITALS: BP 124/70
[2018-07-06 04:00] VITALS: BP 122/73
[2018-07-06] MEDS: METRONIDAZOLE 500 MG TABLET PO SCH ×3 (04:45→20:50)
[2018-07-06 06:13] LABS: BASOPHILS % (AUTO) 0.3 % (0.0-2.0); EOSINOPHILS % (AUTO) 0.5 % (0.0-6.0); HEMATOCRIT 24 % (33-45); HEMOGLOBIN 7.8 g/dL (11.5-14.8); LYMPHOCYTES # (AUTO) 1.1 /CMM (0.8-4.8); LYMPHOCYTES % (AUTO) 20.7 % (20.0-44.0); MEAN CORPUSCULAR HEMOGLOBIN 30 PG (26.0-33.0); MEAN CORPUSCULAR HGB CONC 33 g/dl (31.0-36.0); MEAN CORPUSCULAR VOLUME 90 fL (82-100); MONOCYTES # (AUTO) 0.4 /CMM (0.1-1.30); MONOCYTES % (AUTO) 8.1 % (2.0-12.0); NEUTROPHILS # (AUTO) 3.8 /CMM (1.8-8.9); NEUTROPHILS % (AUTO) 70.4 % (43.0-81.0); PLATELET COUNT (AUTO) 202 /CMM (150-450); RDW COEFFICIENT OF VARIATION 15.8 (11.5-15.0); RED BLOOD CELL COUNT(AUTO) 2.63 MIL/uL (4.0-5.2); WHITE BLOOD COUNT (AUTO) 5.3 K/uL (4.3-11.0)
[2018-07-06 06:52] LABS: CALCIUM, SERUM 7.8 mg/dL (8.5-10.1); CARBON DIOXIDE 28 mmol/L (21-32); CHLORIDE 95 mmol/L (98-107); CREATININE 0.4 mg/dL (0.6-1.3); GLUCOSE 97 mg/dL (74-106); POTASSIUM 3.4 mmol/L (3.5-5.1); SODIUM SERUM 129 mmol/L (136-145); UREA NITROGEN, BLOOD 3 mg/dL (7-18)
--- NOTE | 2018-07-06 07:15 | NUR ---
SHIP LABORER NOTES RECEIVED PATIENT AOX3 , NOT IN ACUTE DISTRESS , DENIES ANY DISCOMFORT AT THIS TIME , SPO2 OF 95% VIA 3LPM NC , SR 108 ON BEDSIDE MONITOR , FC DRAINING VIA GRAVITY , RANJAN MIDLINE PATENT AND INTACT SL , ALL NEEDS ATTENDED , BED ON LOW AND LOCKED POSITION , SIDE RAILS X2 ,CALL LIGHT WITHIN REACH , HOB @ 45 ,WILL CONTINUE TO MONITOR.
[2018-07-06 08:00] VITALS: BP 112/65
[2018-07-06] MEDS: HYDROGEL DRESSING 90 GM TUBE TP SCH (08:37)
[2018-07-06] MEDS: METOPROLOL TARTRATE 25 MG TABLET PO SCH ×2 (08:37→20:50)
[2018-07-06] MEDS: FOLIC ACID 1 MG TABLET PO SCH (08:37)
[2018-07-06] MEDS: Z GUARD REMEDY 2 OZ OINT TP PRN ×2 (08:37→15:57)
[2018-07-06] MEDS: ENSURE ENLIVE 237 ML LIQUID (VANILLA) PO SCH ×3 (08:37→16:02)
[2018-07-06] MEDS: CLOTRIMAZOLE 1% 15 GM TUBE TP SCH ×2 (08:38→16:30)
[2018-07-06] MEDS: POTASSIUM CL. PREMIX PERIPHER. 50 ML IV SCH ×2 (09:36→10:44)
--- NOTE | 2018-07-06 09:55 | NUR ---
SKILLED LABORER NOTES DR FLORES AT BEDSIDE EVALUATING THE PT
[2018-07-06] MEDS: PANTOPRAZOLE 40 MG VIAL IV SCH (10:57)
[2018-07-06] MEDS: MORPHINE SULFATE INJ 2 MG/ML DISP.SYRIN IV PRN (11:16)
--- NOTE | 2018-07-06 11:30 | NUR ---
RECEIVED CARE OF PATIENT. FAMILY AT BEDSIDE. CAZARES IN PLACE DRAINING TO GRAVITY. IV SITE C/D/I/P RUNNING K REPLACEMENT PER ORDER. COLOSTOMY IN PLACE C/D/I AND INCISION SITE C/D/I APPROXIMATED. SAFETY, SKIN, AND ASPIRATION PRECAUTIONS IN PLACE. WILL MONITOR
[2018-07-06 12:00] VITALS: BP 106/56
--- NOTE | 2018-07-06 12:15 | NUR ---
DR ALMONTE AT BEDSIDE. SPOKE WITH FAMILY UPDATED ON CARE PLAN. CALLED PT TO SEE PATIENT PER FAMILY REQUEST
--- NOTE | 2018-07-06 15:28 | NUR ---
PT WORKING WITH PATIENT. UNABLE TO GET OUT OF BED. PATIENT WEAKNESS TO SEVERE TO SIT IN CHAIR. FAMILY AT BEDSIDE.
[2018-07-06] MEDS: HYDROGEL DRESSING 90 GM TUBE TP PRN (15:56)
[2018-07-06 16:00] VITALS: BP 112/69
--- NOTE | 2018-07-06 16:30 | NUR ---
CHIEF OF HOSPITAL MEDICINE NOTES RECEIVED REPORT FROM MARIEL , PATIENT AOX3 , NOT IN ACUTE DISTRESS , DENIES ANY DISCOMFORT AT THIS TIME , SPO2 OF 95% VIA 3LPM NC , ST 113 ON BEDSIDE MONITOR , FC DRAINING VIA GRAVITY , RANJAN MIDLINE PATENT AND INTACT SL , ALL NEEDS ATTENDED , BED ON LOW AND LOCKED POSITION , SIDE RAILS X2 ,CALL LIGHT WITHIN REACH , HOB @ 45 ,WILL CONTINUE TO MONITOR.
[2018-07-06] MEDS: HYDROMORPHONE INJ 2 MG/ML DISP.SYRIN IV PRN (19:46)
[2018-07-06 20:00] VITALS: BP 102/68
[2018-07-07] VITALS: BP 103/67
[2018-07-07 04:00] VITALS: BP 111/68
[2018-07-07] MEDS: METRONIDAZOLE 500 MG TABLET PO SCH ×3 (04:27→20:53)
[2018-07-07 08:00] VITALS: BP 112/63
--- NOTE | 2018-07-07 08:00 | NUR ---
WILLY/RN INITIAL NOTES,AM RECEIVED REPORT FROM NIGHT NURSE. PT RESTING COMFORTABLY IN BED. ALERT, AWAKE, FOLLOWS COMMANDS. PT ON NASAL CANULA, TOLERATING WELL, NO RESPIRATORY DISTRESS NOTED. PT ON TELE, SINUS/SIUNS TACK. MIDLINE PATENT AND INTACT, NO S/S OF INFECTION OR INFILTRATION NOTED. CAZARES INPLACE, DRAINING URINE. ALL NEEDS WILL BE ATTENDED TO, SAFETY MEASURES TAKEN, BED IN LOW POSITION, SIDE RAILS UP, CALL LIGHT WITHIN REACH.
[2018-07-07] MEDS: ENSURE ENLIVE 237 ML LIQUID (VANILLA) PO SCH ×3 (08:22→16:26)
[2018-07-07] MEDS: FOLIC ACID 1 MG TABLET PO SCH (08:27)
[2018-07-07] MEDS: METOPROLOL TARTRATE 25 MG TABLET PO SCH ×2 (08:27→21:07)
[2018-07-07] MEDS: HYDROGEL DRESSING 90 GM TUBE TP SCH (08:28)
[2018-07-07] MEDS: CLOTRIMAZOLE 1% 15 GM TUBE TP SCH ×2 (08:38→16:27)
[2018-07-07 12:00] VITALS: BP 104/63
--- NOTE | 2018-07-07 12:00 | NUR ---
ICU/RN: FAMILY AT BEDSIDE. PLAN OF CARE DISCUSSED. ALL QUESTIONS ANSWERED. WILL CONTINUE CARE
[2018-07-07] MEDS: PANTOPRAZOLE 40 MG VIAL IV SCH (12:14)
[2018-07-07] MEDS ORDERED: IV NS 0.9% 500 ML IV ONE (13:30)
[2018-07-07 16:00] VITALS: BP 113/68
--- NOTE | 2018-07-07 18:50 | NUR ---
WILLY/RN ENDING NOTES,AM REPORT WILL BE ENDORSED TO NIGHT NURSE FOR CONTINUATION OF CARE. ALL NEEDS ATTENDED TO, SAFETY MEASURES TAKEN, BED IN LOW POSITION, SIDE RAILS UP, CALL LIGHT WITHIN REACH. BED BATH GIVEN, LINES CHANGED, PT TURNED AND REPOSITIONED. VSS
--- NOTE | 2018-07-07 19:52 | NUR ---
RADIO INTERFERENCE TROUBLE SHOOTER NOTES, RECEIVED PATIENT IN BED SLEEPING BUT EASILY AROUSABLE TO VERBAL AND TACTILE STIMULI, ABLE TO VERBALIZED NEEDS AND CONCERNS, BREATHING EVEN AND UNLABORED, NO S/S OF PAIN OR DISCOMFORT NOTED AND REPORTED, DENIES ANY DISCOMFORT AT THIS TIME , ST 110 VENEER SHEET REPAIRER , FC DRAINING VIA GRAVITY YELLOW COLOR URINE, , RANJAN MIDLINE PATENT AND INTACT SL , ALL NEEDS ATTENDED , BED ON LOW AND LOCKED POSITION ,CALL LIGHT WITHIN REACH, WILL CONTINUE TO MONITOR CLOSELY.
[2018-07-07 20:00] VITALS: BP 106/75
[2018-07-08] VITALS: BP 110/68
[2018-07-08 04:00] VITALS: BP 107/60
[2018-07-08] MEDS: METRONIDAZOLE 500 MG TABLET PO SCH ×3 (05:28→21:47)
[2018-07-08] MEDS: MORPHINE SULFATE INJ 2 MG/ML DISP.SYRIN IV PRN (05:50)
[2018-07-08 06:30] LABS: CALCIUM, SERUM 7.6 mg/dL (8.5-10.1); CARBON DIOXIDE 25 mmol/L (21-32); CHLORIDE 96 mmol/L (98-107); CREATININE 0.3 mg/dL (0.6-1.3); GLUCOSE 94 mg/dL (74-106); MAGNESIUM 1.4 mg/dL (1.8-2.4); PHOSPHORUS 3.2 mg/dL (2.5-4.9); POTASSIUM 3.5 mmol/L (3.5-5.1); SODIUM SERUM 129 mmol/L (136-145); UREA NITROGEN, BLOOD 4 mg/dL (7-18)
[2018-07-08 06:35] LABS: BASOPHILS % (AUTO) 0.3 % (0.0-2.0); EOSINOPHILS % (AUTO) 0.3 % (0.0-6.0); HEMATOCRIT 22 % (33-45); HEMOGLOBIN 7.3 g/dL (11.5-14.8); LYMPHOCYTES # (AUTO) 1.4 /CMM (0.8-4.8); LYMPHOCYTES % (AUTO) 20.2 % (20.0-44.0); MEAN CORPUSCULAR HEMOGLOBIN 30 PG (26.0-33.0); MEAN CORPUSCULAR HGB CONC 33 g/dl (31.0-36.0); MEAN CORPUSCULAR VOLUME 92 fL (82-100); MONOCYTES # (AUTO) 0.4 /CMM (0.1-1.30); MONOCYTES % (AUTO) 6.2 % (2.0-12.0); NEUTROPHILS # (AUTO) 4.9 /CMM (1.8-8.9); PLATELET COUNT (AUTO) 229 /CMM (150-450); RED BLOOD CELL COUNT(AUTO) 2.43 MIL/uL (4.0-5.2); WHITE BLOOD COUNT (AUTO) 6.8 K/uL (4.3-11.0)
--- NOTE | 2018-07-08 06:55 | NUR ---
SUPERVISOR TOWER NOTES, RECEIVED PATIENT IN BED SLEEPING BUT EASILY AROUSABLE TO VERBAL AND TACTILE STIMULI, ABLE TO VERBALIZED NEEDS AND CONCERNS, BREATHING EVEN AND UNLABORED, NO S/S OF PAIN OR DISCOMFORT NOTED AND REPORTED, DENIES ANY DISCOMFORT AT THIS TIME , ST 90S LINE PILOT , FC DRAINING VIA GRAVITY YELLOW COLOR URINE, COLOSTOMY WITH MINIMAL STOOL AMOUNT AT THIS TIME, , RANJAN MIDLINE PATENT AND INTACT SL , ALL NEEDS ATTENDED , BED ON LOW AND LOCKED POSITION ,CALL LIGHT WITHIN REACH, NO SIGNIFICANT CHANGE IN CONDITION DURING FREIGHT UNLOADER, WILL ENDORSE CONTINUITY OF CARE TO ONCOMING NURSE.
--- NOTE | 2018-07-08 07:15 | NUR ---
CHILDCARE ADMINISTRATOR NOTES, RECEIVED PATIENT IN BED AWAKE, A&OX 4, ABLE TO VERBALIZE NEEDS. ON ASPIRATION PRECAUTION, HEAD OF BED ELEVATED AT ALL TIMES. BREATHING EVEN AND UNLABORED, ON 2 LITERS OXYGEN VIA NASAL CANNULA. SEQUENTIAL COMPRESSION DEVICES ON, DENIES PAIN AT THIS TIME. SINUS TACHY ON JEWEL HOLE FINISH OPENER, HEART RATE 107. CAZARES CATHETER DRAINING LISSY COLORED URINE. OSTOMY BAG INTACT, RANJAN MIDLINE INTACT SALINE LOCK, ALL NEEDS ATTENDED TO. ENCOURAGED PATIENT TO EAT BREAKFAST. BED LOW AND LOCKED, CALL LIGHT WITHIN REACH, WILL CONTINUE TO MONITOR.
[2018-07-08 08:00] VITALS: BP 118/68
[2018-07-08] MEDS: ENSURE ENLIVE 237 ML LIQUID (VANILLA) PO SCH ×3 (08:55→17:00)
[2018-07-08] MEDS: PANTOPRAZOLE 40 MG VIAL IV SCH (10:54)
[2018-07-08] MEDS: FOLIC ACID 1 MG TABLET PO SCH (10:54)
[2018-07-08] MEDS: HYDROGEL DRESSING 90 GM TUBE TP SCH (10:55)
[2018-07-08] MEDS: CLOTRIMAZOLE 1% 15 GM TUBE TP SCH ×2 (10:56→17:04)
[2018-07-08] MEDS: METOPROLOL TARTRATE 25 MG TABLET PO SCH ×2 (10:58→21:47)
[2018-07-08] MEDS: Magnesium 1GM/D5W 100ML PREMIX 100 ML IV SCH ×2 (11:40→12:48)
[2018-07-08 17:21] VITALS: BP 127/75
--- NOTE | 2018-07-08 18:41 | NUR ---
REHABILITATION TECH CLOSING NOTE PATIENT SLEEPING AT THIS TIME, VITAL SIGNS WNL, OXYGEN ON 2LPM VIA NASAL CANNULA. PATIENT ABLE TO VERBALIZE NEEDS. DENIES PAIN. COLOSTOMY BAG INTACT WITH SEMI FORMED BROWN STOOL. CAZARES CATHETER DRAINING LISSY COLORED URINE. PATIENT WITH VARIED ORAL INTAKE, ENCOURAGED PO INTAKE AND ASSISTED WITH FEEDING. FAMILY ALSO INVOLVED AND FED THE PATIENT LUNCH. RANJAN MIDLINE INTACT, DRESSING CHANGED. WOUND TREATMENT AND BED BATH DONE, NO SIGNS OR SYMPTOMS OF DISTRESS, SEQUENTIAL COMPRESSION DEVICES ON. BED LOW AND LOCKED. ALL NEEDS ATTENDED TO, WILL ENDORSE CARE TO PM NURSE.
--- NOTE | 2018-07-08 19:30 | NUR ---
RN OPENING NOTES: RECEIVED PATIENT ON BED AWAKE AND ALERTX3. ON O2 THERAPY AT 2-3LPM, NOT IN APPARENT DISTRESS. IV ACCESS INTACT ON RANJAN MIDLINE; KEPT SL AT THIS TIME. COLOSTOMY NOTED ON RIGHT LOWER ABDOMEN, INTACT. KEPT SL AT THIS TIME. ASPIRATION PRECAUTIONS ENSURED. SKIN CARE RENDERED. SAFETY MEASURES ENSURED. CONTINUOUSLY MONITORED.
[2018-07-08 20:00] VITALS: BP 119/72
[2018-07-09 04:00] VITALS: BP 112/83
[2018-07-09] MEDS: METRONIDAZOLE 500 MG TABLET PO SCH ×2 (05:30→14:13)
[2018-07-09 06:16] VITALS: BP 112/83
--- NOTE | 2018-07-09 06:48 | NUR ---
DUE DILIGENCE COORDINATOR PATIENT WITH SACRAL SCARRING THAT WAS POA. DUE DILIGENCE COORDINATOR SPOKE TO DEE AT [facility] WHO WAS ABLE TO VALIDATE THAT PATIENT HAD A STAGE 3 PRESSURE ULCER WHEN SHE WAS WITH THEM. PATIENT CAME FROM HOME WITH THE STAGE 3 AND WAS TREATED BY [facility] WHILE AT [facility]. PATIENT HOW HAS REOPENED STAGE 3 TO THE SACRAL REGION WHICH WAS NOTED 06/26/18.
--- NOTE | 2018-07-09 07:41 | NUR ---
RN CLOSING NOTES; PATIENT REMAINED IN BED NOT IN APPARENT DISTRESS. REMINED ON O2 THERAPY TOLERATED WELL. SKIN CARE AND SKIN TREATMENT RENDERED. AM BATH GIVEN . TURNED AND REPOSITIONED Q2H AND PRN. SAFETY MEASURES ENSURED. FC INTACT. UO DRAINED AND DOCUMENTED. AM LABS DRAWN. RESULTS PENDING. CONTINUOUSLY MONITORED. ENDORSED TO AM SHIFT MARK FIGUEROA.
[2018-07-09 08:00] VITALS: BP 125/76
--- NOTE | 2018-07-09 08:45 | NUR ---
HEALTH EDUCATION ASSISTANT NOTES RECEIVED PATIENT FROM MARK BAGLEY, NO DISTRESS NOTED, ON NASAL CANNULA 3L, COLOSTOMY BAG IN PLACE CLEAN AND INTACT, CAZARES CATHETER IN PLACE DRAINING YELLOW CLEAR URINE, MIDLINE ON RIGHT UPPER ARM CLEAN AND PATENT, BED IN LOW AND LOCKED POSITION, CALL LIGHT WITHIN REACH, WILL CONTINUE TO MONITOR.
[2018-07-09] MEDS: FOLIC ACID 1 MG TABLET PO SCH (09:02)
[2018-07-09] MEDS: METOPROLOL TARTRATE 25 MG TABLET PO SCH (09:02)
[2018-07-09] MEDS: ENSURE ENLIVE 237 ML LIQUID (VANILLA) PO SCH ×2 (09:05→14:13)
[2018-07-09] MEDS: HYDROGEL DRESSING 90 GM TUBE TP SCH (09:05)
[2018-07-09] MEDS: CLOTRIMAZOLE 1% 15 GM TUBE TP SCH (09:05)
--- NOTE | 2018-07-09 10:15 | NUR ---
COKE OVEN PATCHER PATIENT WAS SEEN 07/08/18 AND THE SACRAL ULCER WAS RE-EVALUATED. THE ULCER IS NOTED TO HAVE WOUND BED CHANGES TO INCLUDE 100% NECROTIC TISSUE TO THE WOUND BED. I SPOKE TO PATIENT AND RECOMMENDED SURGICAL INTERVENTION TO REMOVE THE NECROTIC TISSUE AND PATIENT DECLINED THIS. I RECOMMENDED CONTINUE THE SAME TREATMENT PLAN. ALL DISCUSSED WITH WOOD BARREL RECONDITIONER. WILL CONTINUE TO MONITOR.
[2018-07-09] MEDS ORDERED: LACT-246 PO (10:34)
[2018-07-09] MEDS ORDERED: FOLI1TAB16 PO (10:34)
[2018-07-09] MEDS: PANTOPRAZOLE 40 MG VIAL IV SCH (11:40)
--- NOTE | 2018-07-09 14:20 | NUR ---
FARM ADVISER NOTES PATIENT MRSA SWAB DONE DUE TO PATIENT BEING HERE OVER 21 DAYS.
[2018-07-09 16:00] VITALS: BP 123/69
--- NOTE | 2018-07-09 16:30 | NUR ---
CRIMINAL JUSTICE DEPARTMENT CHAIR NOTES PATIENT DISCHARGE ORDERS GIVEN BY DR NICOLE COSBY, MADE AWARE PATIENT HAD SOME STOOL DESPITE HAVING COLOSTOMY BAG, GI MD MADE AWARE, OK TO DISCHARGE PATIENT, ALL DISCHARGE PAPER WORK SIGNED, ALL PICTURES TAKEN AND PLACED IN CHART, BELONGINGS LIST CHECKED, NOTHING MISSING, PATIENT LEFT WITH GLASSES ON DUE TO NO GLASSES CASE TO STORE THEM, [facility] LEFT BEHIND AMBULANCE COULD NOT TAKE DUE TO RISKS, PATIENT IS OK WITH THIS. REPORT GIVEN TO [facility] TO MARK SULLIVAN. MIDLINE DC AT DISCHARGE, TIP INTACT, PRESSURE APPLIED, CAZARES CATHETER IN PLACE, AND COLOSTOMY CLEAN AND EMPTY AT THIS TIME. PATIENT LEFT VIA AMBULANCE, STABLE. PATIENTS DAUGHTER AWARE OF DISCHARGE.
[2018-07-09] MEDS ORDERED: PHENYLEPHRINE/SHARK LIVER 1 EA SUPP.RECT RC SCH (22:00)
== END 2018-07-09 16:50 | DRG 329 ==
LOC: ER 13:20 → MED 18:50 → ICU 06-15 18:23 → TELE-TD 06-19 16:36 → TELE1 06-20 14:42 → MEDSG1 07-08 10:08
PROVIDERS: ADMIT Family Medicine; ATTEND Family Medicine
PROC: 0DJD8ZZ Inspection of Lower Intestinal Tract, Via Natural or Artificial Opening Endoscopic (ICD-10-PCS; 2018-06-10)
PROC: 0DBN8ZX Excision of Sigmoid Colon, Via Natural or Artificial Opening Endoscopic, Diagnostic (ICD-10-PCS; principal; 2018-06-13 09:30)
PROC: 0D1N0Z4 Bypass Sigmoid Colon to Cutaneous, Open Approach (ICD-10-PCS; 2018-06-15)
PROC: 0WJG0ZZ Inspection of Peritoneal Cavity, Open Approach (ICD-10-PCS; 2018-06-15)
PROC: 30233N1 Transfusion of Nonautologous Red Blood Cells into Peripheral Vein, Percutaneous Approach (ICD-10-PCS; 2018-06-18)
PROC: 05H633Z Insertion of Infusion Device into Left Subclavian Vein, Percutaneous Approach (ICD-10-PCS; 2018-06-25)
PROC: B547ZZA Ultrasonography of Left Subclavian Vein, Guidance (ICD-10-PCS; 2018-06-25)
DX: K56.699 Other intestinal obstruction unspecified as to partial versus complete obstruction (principal); I50.31 Acute diastolic (congestive) heart failure; E44.0 Moderate protein-calorie malnutrition; E87.1 Hypo-osmolality and hyponatremia; K80.00 Calculus of gallbladder with acute cholecystitis without obstruction; Z68.1 Body mass index [BMI] 19.9 or less, adult; M33.20 Polymyositis, organ involvement unspecified; K57.32 Diverticulitis of large intestine without perforation or abscess without bleeding; J98.11 Atelectasis; A04.72 Enterocolitis due to Clostridium difficile, not specified as recurrent; R18.8 Other ascites; K64.8 Other hemorrhoids; K59.00 Constipation, unspecified; E83.42 Hypomagnesemia; E87.6 Hypokalemia; E77.8 Other disorders of glycoprotein metabolism; E83.39 Other disorders of phosphorus metabolism; I48.0 Paroxysmal atrial fibrillation; Z86.73 Personal history of transient ischemic attack (TIA), and cerebral infarction without residual deficits; K21.9 Gastro-esophageal reflux disease without esophagitis; I11.0 Hypertensive heart disease with heart failure; J45.909 Unspecified asthma, uncomplicated; E88.09 Other disorders of plasma-protein metabolism, not elsewhere classified; R73.9 Hyperglycemia, unspecified; D64.9 Anemia, unspecified; M81.0 Age-related osteoporosis without current pathological fracture; K76.89 Other specified diseases of liver; N83.209 Unspecified ovarian cyst, unspecified side; M20.42 Other hammer toe(s) (acquired), left foot; R62.7 Adult failure to thrive; K57.30 Diverticulosis of large intestine without perforation or abscess without bleeding; R23.4 Changes in skin texture; D72.829 Elevated white blood cell count, unspecified; I34.0 Nonrheumatic mitral (valve) insufficiency; I36.1 Nonrheumatic tricuspid (valve) insufficiency; D72.819 Decreased white blood cell count, unspecified; F03.90 Unspecified dementia, unspecified severity, without behavioral disturbance, psychotic disturbance, mood disturbance, and anxiety; K66.8 Other specified disorders of peritoneum
CPT/HCPCS: 36415; 36569; 36600; 70450-TC; 71045-TC; 74018; 74270-TC; 76705-TC; 76856-TC; 78226; 80048-TC; 80053-TC; 80061-TC; 80076-TC; 82040-TC; 82247-TC; 82248-TC; 82378; 82550-TC; 82553-TC; 82570-TC; 82728-TC; 82746; 82784; 82803-TC; 82962-TC; 83540-TC; 83605-TC; 83690-TC; 83735-TC; 84100-TC; 84134-TC; 84155; 84165; 84443-TC; 84484-TC; 85025-TC; 85730-TC; 86334; 86850-TC; 86921-TC; 87040-TC; 87081-TC; 87177; 87209; 88305-TC; 89055; 92521; 92526; 93307-TC; 93971-TC; 97110-TC; 97112-TC; 97530-TC; A4216; A4217; A4606; A6248; A6253; A6402; A6403; A9537; A9563; C9113; J1100; J1170; J1265; J1885; J1956; J2270; J2370; J2405; J2704; J2710; J2765; J3475; J3480; J3490; J7030; J7050; J7060; J7120; P9016-BL; P9047; Q0169; Q9968; Z7610